=== PATIENT | male | born 1950 | race Caucasian/White ===

== ENCOUNTER 2024-04-25 11:09 | Day surgery (SDC) | payer OTHER, SELFPAY ==
[2024-04-25] VITALS (12 sets, daily range): BP systolic 142–159; BP diastolic 84–98; PULSE 59–70; TEMP 36.2–36.6; O2SAT 93–97; BMI 32.6
--- NOTE | 2024-04-25 11:20 | XR_ITS ---
The [address] [address] Patient Name: RAQUEL RANDOLPH MRN: [id number] date: 1950 Sex: M Assigned Patient Location: [facility] Current Patient Location: Accession/Order Number: [id number] Exam Date: 04/25/2024 11:30 Report Date: 04/27/2024 04:57 At the request of: STARR RUIZ Procedure: XR abdomen 1V EXAMINATION: XR abdomen 1V HISTORY: kidney stones COMPARISON: No relevant comparison available. FINDINGS: KIDNEY/URETER - RIGHT: 6 mm density projecting over inferior pole of right kidney; stone versus bowel content. KIDNEY/URETER - LEFT: No visible renal or ureteral calcifications. PELVIS: No visible ureteral stones. BOWEL: No abnormal dilation or deviation. BONES: No acute abnormality. OTHER: Negative. No abnormal gaseous collections. XR/XR abdomen 1V IMPRESSION: 1. Suspect 6 mm stone within inferior pole of right kidney. Electronically authenticated by: SAWYER CHACKO Date: 04/27/2024 04:57
--- NOTE | 2024-04-25 11:21 | ECG_ITS ---
The [facility] Test Date: 2024-04-25 Pat Name: RAQUEL RANDOLPH Department: Room: - Gender: Male Reference Archivist: : 1950 Requested By: STARR RUIZ Order Number: [id number] Reading MD: BRYANT GRUBER Measurements Intervals Gilman Rate: 68 P: 39 UT: 163 QRS: -2 QRSD: 93 T: 30 QT: 393 QTc: 419 Interpretive Statements SINUS RHYTHM No previous ECG available for comparison Electronically Signed On 04-26-2024 8:54:53 EST by BRYANT GRUBER
[2024-04-25 11:56] LABS: INR 1.03; Prothrombin Time 10.9 sec (9.0-11.6)
[2024-04-25 12:09] LABS: Partial Thromboplastin Time 27.3 sec (22.3-36.2)
[2024-04-25] MEDS: LACTATED RINGER'S SOLUTION 1,000 ML 50 ML IV ×2 (12:30→15:37)
[2024-04-25] MEDS: CEFAZOLIN SODIUM 2 GM/50 ML D5W PREMIX IV (14:45)
--- NOTE | 2024-04-25 16:00 | PM.URSON ---
Urology Surgery Operative Note Operative Note Procedure Date: 04/25/24 Time Out Performed: yes Pre-op Diagnosis: Right UPJ calculus Post-op Diagnosis: same as pre-op Procedures performed: 1. Right ESWL. 2. Cystoscopy. 3. Placement of 6 Upper Sorbian variable length right ureteral stent Anesthesia: General-LMA Primary Surgeon: Montrell Holt Complications: None Estimated blood loss (mL): 5 Findings: Right renal pelvis stone Specimens: None Drains: 6 Upper Sorbian variable length right ureteral stent Indications for Procedures: This gentleman has a 7 mm right UPJ calculus causing pain. He now presents for right ESWL and cystoscopy and right stent placement. He has signed an informed consent for these procedures after risks were explained. Some of these risks include bleeding, perinephric hematoma, infection and anesthesia to name a few. Detailed description of Procedure: The patient was brought to the Operating Room and placed on Siemens electromagnetic lithotripsy treatment table in the supine position. SCDs were placed on their lower extremities and turned on and functioning during the entire case. Timeout was done by all parties in the room. We all agreed upon the patient's identification and the planned procedures for this patient. General Anesthesia was then administered via LMA. Treatment head was then brought to the patient's right side. While using flourscopy the stone was identified. It was found to be in the renal pelvis. It seems to have been ball valving. The stone was lined up into the crosshairs. We then began applying shocks at power level 2.0 and increased to a maximum power level of 3.5. The stone was slow to fragment. Intermittent fluoroscopy showed that it did decrease in size by 50%. After applying 3000 shocks there was still some formed stone visible now in the lower pole of the kidney. The ESWL portion of the procedure was then terminated. He was then repositioned into the modified dorsolithotomy position. All pressure points were satisfactorily padded. Genitalia were sterilely prepped and draped in the usual fashion. I started by passing a 22 Upper Sorbian Olympus cystoscope per urethra and into the bladder. Anterior urethra revealed sequential strictures. I was able to get the scope through them but they were narrowing the lumen by at least 50%. The prostate showed long obstructing lateral lobes with a fairly high median lobe. Panendoscopy in the bladder revealed no evidence of any tumors or stones. There was moderate trabeculation. I then passed a Glidewire through the scope and up the right ureter and into the kidney. A 6 Upper Sorbian variable length ureteral stent was passed over the wire and up into the kidney. The wire was removed and there were good curls in the kidney and in the bladder. The bladder was drained of its contents and the scope was then removed. He was then transferred to a [facility] bed and wheeled to PACU in stable condition. He will be discharged to home later today with a prescription for Power Lakisha 75 mg daily #31 refill and cephalexin 500 mg twice daily for a week.
[2024-04-25] MEDS: SOLIFENACIN SUCCINATE 10 MG TABLET PO (16:11)
[2024-04-25] MEDS: ACETAMINOPHEN 325 MG TABLET 650 MG PO (16:56)
== END 2024-04-25 17:28 | disposition home or self-care (01) ==
PROVIDERS: Visit Provider Urology
PROC: (CPT 50590; principal; 2024-04-25 13:45)
DX: N13.2 Hydronephrosis with renal and ureteral calculous obstruction (principal); N32.89 Other specified disorders of bladder
CPT/HCPCS: 50590; 52332; 36415; 74018; 85610; 85730; 93005; J0690; J2405; J2704; J3010

== ENCOUNTER 2024-05-28 11:01 | Outpatient (OUT) | payer OTHER, SELFPAY | END 2024-05-28 11:02 | disposition home or self-care (01) | LOC: PST 11:01 | PROVIDERS: Visit Provider Urology | DX: N20.0 Calculus of kidney (principal) ==

== ENCOUNTER 2024-05-29 13:15 | Day surgery (SDC) | payer OTHER, SELFPAY ==
--- NOTE | 2024-05-29 13:36 | PC.NURSE ---
(7031) Dr. Holt at bedside and talks with patient about plan of care and patient's expectations of this procedure today. Dr. Holt explains to patient that he doesn't suggest to have this procedure done today but will do it if the patient wants it done. Dr. Holt also talks to patient at length about the unacceptable behavior that this patient displayed towards his office staff. Patient states that he is upset that this wasn't taken care of all at the same time. Dr. Jaffe's states that his office explained things to him numerous times. Patient verbalized that he understands. Girlfriend to bedside. 1410- Patient and patient's girlfriend talk at length about what is the end result and why can't Dr. Holt take a look at his ureters today. Reiterated to patient that a ureteroscopy isn't going to be done today. Patient is requesting to talk to Dr. Holt again. 1425- Dr. Holt back to bedside and talks to patient and patient's family again about the scheduled procedure today. Patient decides that he doesn't want this scheduled procedure done today. Dr Holt reviews all the patient's medications with the patient and patient's girlfriend. Dr. Holt tells patient's when to take the prescribed medications. Patient verbalized a understanding. Dr. Holt to talk to his office to get procedure scheduled. Office to call the patient. Patient verbalized a understanding.
== END 2024-05-29 14:45 | disposition home or self-care (01) ==
PROVIDERS: Visit Provider Urology
DX: N20.0 Calculus of kidney (principal); Z53.8 Procedure and treatment not carried out for other reasons
CPT/HCPCS: 52353

== ENCOUNTER 2024-06-05 08:36 | Day surgery (SDC) | payer OTHER, SELFPAY ==
[2024-06-05] VITALS (10 sets, daily range): BP systolic 143–167; BP diastolic 86–95; PULSE 58–75; TEMP 36.2–36.4; O2SAT 91–96; BMI 33.4
--- NOTE | 2024-06-05 | FL_ITS ---
[address] [address] Patient Name: RAQUEL RANDOLPH MRN: [id number] date: 1950 Sex: M Assigned Patient Location: [facility] Current Patient Location: [facility] Accession/Order Number: [id number] Exam Date: 06/05/2024 11:30 Report Date: 06/11/2024 07:28 At the request of: STARR RUIZ Procedure: FL fluoroscopy <1hr NON-READ EXAM: FL fluoroscopy <1hr NON-READ HISTORY: TECHNIQUE: FINDINGS: Please see Operative Report. Electronically authenticated by: RADIOLOGIST NO Date: 06/11/2024 07:28
--- OUTSIDE RECORDS SUMMARY | 2024-06-05 08:40 | XMS_ITS | CCD ---
Author Organization [facility] Inform ion Partnership [facility] Care Team Providers Care Briquette Maker Name Role Phone Keila Ingram Unavailable Chasidy Matthew Unavailable Wendy Pastor Unavailable Lydia Martines Unavailable Keila Chen Unavailable DO Nita Hernandez Primary Care Provider DO Wendy Khanna Attending Provider DO Nita Hernandez Primary Care Provider DO Wendy Khanna Attending Provider [phone] JEWEL TORRES Primary Care Physician Unavailable Primary Care Provider UnavailNABILA Gillespie Attending Unavailable Montrell HOLT Attending Unavailable Montrell HOLT Attending Unavailable Montrell HOLT Attending Unavailable Richard Ramirez Admitting Unavailable Richard Ramirez Attending Unavailable Wendy Pastor Primary Care Unavailable Jewel Torres Primary Care Unavailable Amandeep Harris Admitting Unavailable Amandeep Harris Attending Unavailable Mac Wolf Admitting Unavailable Mac Wolf Attending Unavailable Jewel Torres Primary Care Unavailable Wendy Pastor Admitting Unavailable Wendy Pastor Attending Unavailable Nita Hernandez Primary Care Unavailable Montrell Holt Admitting Unavailable Montrell Holt Attending Unavailable Jewel Torres Primary Care Unavailable Abdi Lobo Admitting Unavailable Abdi Lobo Attending Unavailable Jewel Torres Primary Care Unavailable Medications Current Medications Medication Drug Class(es) Dates Sig (Normalized) Sig (Original) [id number] 200 actuat albuterol 0.09 mg/actuat metered dose inhaler (2 sources) beta2-Adrenergic Agonist Start: 03-06-2023 take 2 puff(s) by inhalation every four hours as needed Albuterol Sulfate HFA 108 (90 Base) MCG/ACT 2 puffs as needed Inhalation every 4 hrs Feb, Active Start: 03-06-2023 take 2 puff(s) by in halation every four hours as needed Albuterol Sulfate HFA 108 (90 Base) MCG/ACT 2 puffs as needed Inhalation every 4 hrs Feb, Not-Taking/PRN amoxicillin 875 mg / clavulanate 125 mg oral tablet (1 source) Penicillin-class Antibacterial Start: 11-08-2023 take 1 tablet by mouth twice daily Amoxicillin-Pot Clavulanate Active 1 TAB PO Twice daily 09 03November 08, 2023 12:00am azithromycin 250 mg oral tablet (3 sources) Macrolide Antimicrobial Start: 03-06-2023 take 2 tablets by mouth once daily, then take 1 tablet by mouth once daily, then take 2-5 tablets by mouth once daily Zithromax Z-Jose 250 MG 2 tablets on day 1, then 1 tablet on days 2-5 Orally once a day for 5 days Feb, Active Start: 04-02-2022 Azithromycin 2 50 MG 2 tablet on the first day, then 1 tablet daily for 4 days Orally Once a day for 5 day(s) Mar, Not-Taking benzonatate 200 mg oral capsule (2 sources) Non-narcotic Antitussive Start: 11-08-2023 take 200 mg by mouth twice daily Benzonatate Active 200 MG PO Twice daily November 08, 2023 12:00am Start: 03-06-2023 take 1 capsule by mo [facility] every eight hours Benzonatate 200 MG 1 capsule Orally Three times a day for Feb, Active ergocalciferol 1.25 mg oral capsule (1 source) Provitamin D2 Compound Start: 06-12-2023 take 1 capsule by mouth every week Ergocalciferol 08981 UNIT 1 capsule Orally Weekly for 90 days May, Active latanoprost 0.05 mg/ml ophthalmic solution (3 sources) Prostaglandin Analog Start: 04-25-2024 latanoprost Opth 0.005% Heena 1 drop(s), OPTH, Once a day (at bedtime), 2.5 mL, Refill(s) 0 Start Date: 04/25/24 Status: Ordered Start: 11-08-2023 take 1 drop(s) into the eye(s) once daily Latanoprost Active 1 DROPS EYE-BOTH Daily November 08, 2023 12:00am methylPREDNISolone 4 mg oral tablet (1 source) Corticosteroid Start: 03-06-2023 methylPREDNISolone 4 MG as directed Orally Feb, Active oxybutynin chloride 5 mg oral tablet (1 source) Cholinergic Muscarinic Antagonist Start: 05-23-2024 take 1 tablet by mouth twice daily as needed oxybutynin 5 mg Tab 5 mg = 1 tab(s), Oral, BID, PRN for urinary discomfort, # 30 tab(s), Refills(s) 0, Pharmacy: [facility], 178, cm, 04/25/24 9:34:00 EST, Height/Length Dosing, 101.5, kg, 04/25/24 9:34:00 EST, Weight Dosing Start Date: 05/23/24 Status: Ordered Paxlovid 20 x 150 MG & 10 x 100MG (2 sources) Start: 11-24-2021 take 1 dose by mouth twice daily Paxlovid 20 x 150 MG & 10 x 100MG 1 dose Orally twice a day for 5 days Nov, Active tamsulosin hydrochloride 0.4 mg oral capsule (1 source) alpha-Adrenergic Derrick Start: 05-23-2024 take 1 capsule by mouth once daily tamsulosin 0.4 mg Cap 0.4 mg = 1 cap(s), Oral, Daily, # 14 cap(s), Refills(s) 1, Pharmacy: [facility], 178, cm, 04/25/24 9:34:00 EST, Height/Length Dosing, 101.5, kg, 04/25/24 9:34:00 EST, Weight Dosing Start Date: 05/23/24 Status: Ordered vibegron 75 MG Oral Tablet [Gemtesa] (1 source) Start: 05-23-2024 End: 06-20-2024 take 1 tablet by mouth once daily Gemtesa 75 mg oral tablet 75 mg = 1 tab(s), Oral, Daily, X 14 day(s), # 14 tab(s), Refills(s) 1, Pharmacy: [facility], 178, cm, 04/25/24 9:34:00 EST, Height/Length Dosing, 101.5, kg, 04/25/24 9:34:00 EST, Weight Dosing Start Date: 05/23/24 Stop Date: 06/20/24 Status: Ordered Completed/Discontinued Medications Medication Drug Class(es) Dates Sig (Normalized) Sig (Original) doxycycline hyclate 100 mg oral tablet (2 sources) Tetracycline-class Drug Start: 08-20-2023 End: 11-08-2023 take 100 mg by mouth twice daily Doxycycline Hyclate Discontinued 100 MG PO Twice daily 14 August 20, 2023 12:00am November 08, 2023 9:46am hydrOXYzine hydrochloride 25 mg oral tablet (2 sources) Antihistamine Start: 04-02-2022 take 1 tablet by mouth every twenty-four hours hydrOXYzine HCl 25 MG 1 tablet at bedtime as needed Orally Once a day for 7 day(s) Mar, Not-Taking Ketorolac (20 sources) Nonsteroidal Anti-inflammatory Drug, Cyclooxygenase Inhibitor Start: 02-05-2020 Toradol per 15 mg Jan, 60 mg Start: 10-16-2019 Toradol per 15 mg September, 60 mg Start: 01-14-2019 Toradol per 15 mg Dec, 60 mg Start: 09-08-2016 Toradol per 15 mg Aug, 60 mg penicillin v potassium 500 mg oral tablet (2 sources) Start: 03-31-2022 take 1 tablet by mouth every twelve hours Penicillin V Potassium 500 MG 1 tablet Orally Twice a day for 10 day(s) Mar, Not-Taking predniSONE 20 mg oral tablet (2 sources) Start: 08-20-2023 End: 11-08-2023 Prednisone Discontinued 20 MG PO Daily August 20, 2023 12:00am November 08, 2023 9:46am Take 3 pills x3 days, 2 pills x3 days, 1 pill x 3 days Problems Active Problems Problem Classification Problem Date Documented Date Episodic/Chronic Abdominal pain (1 source) Right lower quadrant pain; Translations: [Right lower quadrant pain] Onset: 04-23-2024 Episodic Acute bronchitis (1 source) Acute bronchitis, unspecified Episodic Allergic reactions (1 source) Dermatitis, unspecified; Translations: [Contact dermatitis and other eczema, unspecified cause] 08-20-2023 Episodic Calculus of urinary tract (4 sources) Kidney stone; Translations: [Calculus of kidney] Onset: 04-25-2024 Episodic Disorders of lipid metabolism (11 sources) Hypercholesterolemia; Translations: [Pure hypercholesterolemia, unspecified] Onset: 06-06-2023 Chronic Genitourinary symptoms and ill-defined conditions (1 source) 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; Translations: [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] Onset: 04-27-2024 Chronic Genitourinary symptoms and ill-defined conditions (2 sources) Sensation as if bladder still full; Translations: [Feeling of incomplete bladder emptying] Onset: 04-26-2024 Episodic Nutritional deficiencies (11 sources) Vitamin D deficiency; Translations: [Vitamin D deficiency, unspecified] Onset: 06-06-2023 Chronic Open wounds of extremities (3 sources) Laceration of left thumb; Translations: [Laceration without foreign body of left thumb without damage to nail, initial encounter] 05-02-2023 Episodic Osteoarthritis (10 sources) Degenerative joint disease of shoulder region; Translations: [Primary osteoarthritis, right shoulder] Chronic Other connective tissue disease (10 sources) Full thickness rotator cuff tear; Translations: [Complete rotator cuff tear or rupture of right shoulder, not specified as traumatic] Episodic Other diseases of kidney and ureters (1 source) Urinary tract obstruction; Translations: [Hydronephrosis with renal and ureteral calculous obstruction] Onset: 04-25-2024 Episodic Other inflammatory condition of skin (10 sources) Seborrheic dermatitis; Translations: [Seborrheic dermatitis, unspecified] Episodic Other nutritional; endocrine; and metabolic disorders (10 sources) Body mass index 30+ - obesity; Translations: [Body mass index (BMI) 32.0-32.9, adult] Chronic Other screening for suspected conditions (not mental disorders or infectious disease) (1 source) Encounter for screening for malignant neoplasm of colon Episodic Other upper respiratory disease (1 source) Nasal congestion Episodic Other upper respiratory infections (2 sources) Acute upper respiratory infection, unspecified; Translations: [Acute pharyngitis, unspecified] Onset: 02-15-2021 Resolved: 02-15-2021 Episodic Skin and subcutaneous tissue infections (1 source) Cutaneous abscess, unspecified; Translations: [Cellulitis and abscess of unspecified sites] 08-20-2023 Episodic Unclassified (2 sources) Obstructive hydronephrosis 04-25-2024 Past or Other Problems Problem Classification Problem Date Documented Da te Episodic/Chronic Immunizations and screening for infectious disease (1 source) Contact with and (suspected) exposure to other viral communicable diseases; Translations: [Contact with and (suspected) exposure to other viral communicable diseases Z20.828] Onset: 02-15-2021 Resolved: 02-15-2021 Episodic Unclassified (2 sources) Cough R05.9 Onset: 11-24-2021 Resolved: 11-24-2021 Viral infection (1 source) COVID-19 Onset: 11-24-2021 Resolved: 11-24-2021 Results Test Name Value Interpretation Reference Range Facility XR KUBon 05-20-2024 XR KUB [facility] [place] [address] XRay Report Signed Patient: Raquel Randolph MR#: [id number] 08 : 1950 Acct:[id number] Age/Sex: 74 / M ADM Date: 05/19/24 Loc: XD Room: Type: [facility] Attending Dr: Montrell Holt MD Copies to: Montrell Holt MD Ordering Provider: Montrell Holt MD Date of Service: 05/19/24 XR/XR KUB: N20.0 XR KUB 05/19/2024 3:28 PM SIGNS AND SYMPTOMS: Right lower quadrant pain anteriorly PROTOCOL: Frontal radiograph of the abdomen and pelvis COMPARISON: 04/23/2024 05/19/2024 FINDINGS: Radiodense stones seen on the previous CT are not as well visualized radiographically. A right- sided ureteral stent is in satisfactory position. There is a nonobstructive bowel gas pattern. No radiographic evidence of free air. Degenerative changes are noted in the lumbar spine and hips. XR/XR KUB IMPRESSION: Radiodense stones seen on the previous CT are not as well visualized radiographically. A right-sided ureteral stent is in satisfactory position. Impression dictated by: Eliseo Flores M.D.05/20/2024 12:55 AM Dictation Location: [place] [address] Transcribed By: [facility] 05/20/2454 Dictated By: Eliseo Flores II, MD 05/20/2450 Signed By: 05/20/2454 Normal [facility] Basic Metabolic Panelon 04-22 Anion gap [Moles/Vol] 14.0 mmol/L Normal 6.0-15.0 [facility] Comment on above: Performed By: #### L IPASE, BMP, CBC, HEPATIC #### [facility] [address] Calcium [Mass/Vol] 9.2 mg/dL Normal 8.6-10.3 [facility] Comment on above: Performed By: #### L IPASE, BMP, CBC, HEPATIC #### [facility] [address] [place] [address] [place] Chloride [Moles/Vol] 104 mmol/L Normal 98-107 [facility] Comment on above: Performed By: #### L IPASE, BMP, CBC, HEPATIC #### [facility] [address] [place] [address] [place] CO2 [Moles/Vol] 24.1 mmol/L Normal 21.0-31.0 [facility] Comment on above: Performed By: #### L IPASE, BMP, CBC, HEPATIC #### [facility] [address] [place] [address] [place] Creatinine [Mass/Vol] 0.90 mg/dL Normal 0.70-1.30 [facility] Comment on above: Performed By: #### L IPASE, BMP, CBC, HEPATIC #### [facility] [address] [place] [address] [place] Creatinine Clr Calc Pharmacy 87.06 Normal [facility] Comment on above: Performed By: #### L IPASE, BMP, CBC, HEPATIC #### [facility] [address] [place] [id number] [place] GFR/1.73 sq M.predicted MDRD (S/P/Bld) [Vol rate/Area] mL/min/{1.73_m2} Normal [facility] Comment on above: Performed By: #### L IPASE, BMP, CBC, HEPATIC #### [facility] [address] [place] [address] [place] Glucose [Mass/Vol] 108 mg/dL High 70-100 [facility] Comment on above: Result Comment: [place] Glucose Reference Range is dependent on time and content of last meal. Glucose of more than 200 mg/dL in a nonstressed, ambulatory subject supports the diagnosis of Diabetes Mellitus. ADA recommended reference range Performed By: #### L IPASE, BMP, CBC, HEPATIC #### [facility] [address] Potassium [Moles/Vol] 4.1 mmol/L Normal 3.5-5.1 [facility] Comment on above: Performed By: #### L IPASE, BMP, CBC, HEPATIC #### [address] Sodium [Moles/Vol] 138 mmol/L Normal 136-145 [facility] Comment on above: Performed By: #### L IPASE, BMP, CBC, HEPATIC #### [facility] [address] Urea nitrogen [Mass/Vol] 18 mg/dL Normal 7-25 [facility] Comment on above: Performed By: #### L IPASE, BMP, CBC, HEPATIC #### [address] abdomen pelvis wo conon 1 CT abdomen pelvis wo con [facility] [place] [address] CT Scan Report Signed Patient: Raquel Randolph MR#: [id number] [birth year] : 1950 Acct:[id number] Age/Sex: 74 / M ADM Date: 05/19/24 Loc: ER Room: Type: [facility] ER Attending Dr: Copies to: Rcihard Ramirez DO Ordering Provider: Richard Ramirez DO Date of Service: 05/19/24 CT/CT abdomen pelvis wo con: right side abd pain CT abdomen pelvis wo con 05/19/2024 5:44 PM SIGNS AND SYMPTOMS: Right-sided abdominal pain, history of renal stones TECHNIQUE: Multidetector ct axial images of the abdomen and pelvis were obtained without IV contrast. Multiplanar reformats were performed and reviewed to further define anatomy and possible pathology. CT was performed with one or more of the following dose reduction techniques: Automated exposure control, adjustment of the mA and/or kV according to patient size, or use of iterative reconstruction technique. COMPARISON: 04/23/2024 FINDINGS: Lower Chest: Atherosclerotic changes are noted in the coronary arteries. ABDOMEN: Liver: Within normal limits. Bile Ducts: Normal caliber. Gallbladder: No calcified gallstones. Normal caliber wall. Pancreas: Within normal limits. Spleen: Within normal limits. Adrenals: Within normal limits. Kidneys: There is right-sided hydronephrosis. Multiple right-sided renal stones are noted measuring up to 7 mm in greatest dimension. There are tiny 1 to 2 mm left-sided renal stones with parapelvic cysts. A right ureteral stent is new when compared to the prior exam. Pelvis: Reproductive Organs: No pelvic masses. Ureters: A right-sided ureteral stent is present with periureteral fat stranding which is worse when compared to the prior exam. Bladder: The distal end of the right ureteral stent is noted within the bladder. Bowel: There is a normal appendix in the right lower quadrant. There is no evidence of bowel obstruction. Mesenteric Lymph Nodes: No enlarged mesenteric lymph nodes. Peritoneum: No ascites or free air, no fluid collection. Vessels: Atherosclerotic changes are noted in the abdominal aorta and its branches. Retroperitoneum: Within normal limits. Abdominal Wall: Within normal limits. Bones: Degenerative changes are noted in the thoracolumbar spine and hips. CT/CT abdomen pelvis wo con IMPRESSION: Right-sided renal stones are redemonstrated measuring up to 7 mm in greatest dimension. There has been interval placement of a right-sided ureteral stent with right-sided hydronephrosis along with perinephric and periureteral fat stranding. No ureteral or bladder stone. Tiny nonobstructing left renal stones are redemonstrated. No bowel obstruction. Impression dictated by: Eliseo Flores M.D.05/19/2024 6:16 PM Dictation Location: [place] [address] Transcribed By: [facility] 05/19/24 8255 Dictated By: Eliseo Flores II, MD 05/19/241806 Signed By: 05/19/241815 Normal [facility] Complete Blood Count Auto Di ffon 05-19-2024 Basophils (Bld) [#/Vol] 0.0 10*3/uL Normal 0.0-0.2 [facility] Comment on above: Result Comment: PERF ORMED BY: [place] [address] PATHOLOGIST SALESPERSON YARD [employer] FELIZ FAY M.D. Performed By: #### L IPASE, BMP, CBC, HEPATIC #### [address] Basophils/100 WBC (Bld) 0.6 % Normal . T ricky [facility] Comment on above: Performed By: #### L IPASE, BMP, CBC, HEPATIC #### [address] Eosinophils (Bld) [#/Vol] 0.1 10*3/uL Normal 0.0-0.45 [facility] Comment on above: Performed By: #### L IPASE, BMP, CBC, HEPATIC #### [address] Eosinophils/100 WBC (Bld) 1.2 % Normal . [facility] Comment on above: Performed By: #### L IPASE, BMP, CBC, HEPATIC #### [address] Erythrocyte distribution width (RBC) [Ratio] 13.7 % Normal 12.0-14.8 [facility] Comment on above: Performed By: #### L IPASE, BMP, CBC, HEPATIC #### [address] Hematocrit (Bld) [Volume fraction] 41.5 % Normal 38.8-50.0 [facility] Comment on above: Performed By: #### L IPASE, BMP, CBC, HEPATIC #### [place] [address] [place] Hemoglobin (Bld) [Mass/Vol] 14.3 g/dL Normal 13.0-17.0 [facility] Comment on above: Performed By: #### L IPASE, BMP, CBC, HEPATIC #### [address] Lymphocytes (Bld) [#/Vol] 1.9 10*3/uL Normal 1.00-4.8 [facility] Comment on above: Performed By: #### L IPASE, BMP, CBC, HEPATIC #### [address] Lymphocytes/100 WBC (Bld) 23.1 % Normal . [facility] Comment on above: Performed By: #### L IPASE, BMP, CBC, HEPATIC #### [address] MCH (RBC) [Entitic mass] 31.6 pg Normal 27.5-35.2 [facility] Comment on above: Performed By: #### L IPASE, BMP, CBC, HEPATIC #### [address] MCV (RBC) [Entitic vol] 91.7 fL Normal 83.5-101 T [facility] Comment on above: Performed By: #### L IPASE, BMP, CBC, HEPATIC #### [address] Mean Corpuscular HGB Conc 34.4 g/dL Normal 32.5-35.6 [facility] Comment on above: Performed By: #### L IPASE, BMP, CBC, HEPATIC #### [address] Monocytes (Bld) [#/Vol] 0.7 10*3/uL Normal 0.0-0.8 [facility] Comment on above: Performed By: #### L IPASE, BMP, CBC, HEPATIC #### [address] Monocytes/100 WBC (Bld) 17.49 % Normal 0.00-20.00 T [facility] Comment on above: Performed By: #### L IPASE, BMP, CBC, HEPATIC #### [facility] [address] [place] [address] [place] Monocytes/100 WBC (Bld) 8.8 % Normal . T he [facility] Comment on above: Performed By: #### L IPASE, BMP, CBC, HEPATIC #### [address] Neutrophils (Bld) [#/Vol] 5.4 10*3/uL Normal 1.8-7.7 [facility] Comment on above: Performed By: #### L IPASE, BMP, CBC, HEPATIC #### [place] [address] [place] Neutrophils/100 WBC (Bld) 66.3 % Normal . [facility] Comment on above: Performed By: #### L IPASE, BMP, CBC, HEPATIC #### [address] NRBC% 0.1 /100{WBC} Normal 0-0.5 [facility] Comment on above: Performed By: #### L IPASE, BMP, CBC, HEPATIC #### [place] [address] [place] Platelet mean volume (Bld) [Entitic vol] 8.2 fL Normal 6.6-10.1 [facility] Comment on above: Performed By: #### L IPASE, BMP, CBC, HEPATIC #### [facility] [address] [place] [address] [place] Platelets (Bld) [#/Vol] 248 10*3/uL Normal 150-450 [facility] Comment on above: Performed By: #### L IPASE, BMP, CBC, HEPATIC #### [place] [address] [place] RBC (Bld) [#/Vol] 4.52 10*6/uL Normal 3.90-5.60 [facility] Comment on above: Performed By: #### L IPASE, BMP, CBC, HEPATIC #### [place] [address] [place] WBC (Bld) [#/Vol] 8.2 10*3/uL Normal 4.1-10.5 [facility] Comment on above: Performed By: #### L IPASE, BMP, CBC, HEPATIC #### [facility] [address] [place] [address] [place] Dipstick and Microscopicon 1 Appearance (U) Turbid Critically abnormal Clear [facility] Comment on above: Order Comment: Name Collection Type:: Clean-Voided Midstream Performed By: #### A DDONUAPLUS, CUU ####[place] [address] [address] Bacteria,Urine None Seen Normal None Seen [facility] Comment on above: Order Comment: Name Collection Type:: Clean-Voided Midstream Performed By: #### A DDONUAPLUS, CUU ####[address] Bilirubin,Urine Negative Normal Negative [facility] Comment on above: Order Comment: Name Collection Type:: Clean-Voided Midstream Performed By: #### A DDONUAPLUS, CUU ####[address] [place] Yeast,Urine 4+ High None Seen [facility] Comment on above: Order Comment: Name Collection Type:: Clean-Voided Midstream Result Comment: PERF ORMED BY: [facility] [address] [place] [address] PATHOLOGIST SALESPERSON YARD [employer] FELIZ FAY M.D. Performed By: #### A DDONUAPLUS, CUU ####[place] [address] [place] [id number] [facility] Calcium Oxalate Crystals,Urine 4+ Normal [facility] Comment on above: Order Comment: Name Collection Type:: Clean-Voided Midstream Performed By: #### A DDONUAPLUS, CUU ####[place] [address] [place] [id number] [facility] Color (U) Dark-Brown Critically abnormal Yellow [facility] Comment on above: Order Comment: Name Collection Type:: Clean-Voided Midstream Performed By: #### A DDONUAPLUS, CUU ####[place] [address] [place] [address] [facility] Glucose Ql (U) Normal Normal Normal [facility] Comment on above: Order Comment: Name Collection Type:: Clean-Voided Midstream Performed By: #### A DDONUAPLUS, CUU ####[address] [address] [place] Hyaline Casts,Urine None Normal 0-8 [facility] Comment on above: Order Comment: Name Collection Type:: Clean-Voided Midstream Performed By: #### A DDONUAPLUS, CUU ####[address] [address] [facility] Ketones Ql (U) Negative Normal Negative [facility] Comment on above: Order Comment: Name Collection Type:: Clean-Voided Midstream Performed By: #### A DDONUAPLUS, CUU ####[address] [address] [facility] Leukocyte esterase Test strip Ql (U) 2+ High Negative [facility] Comment on above: Order Comment: Name Collection Type:: Clean-Voided Midstream Performed By: #### A DDONUAPLUS, CUU ####[address] [address] [facility] Mucus,Urine Rare Normal [facility] Comment on above: Order Comment: Name Collection Type:: Clean-Voided Midstream Performed By: #### A DDONUAPLUS, CUU ####[address] [address] [place] Nitrite,Urine Negative Normal Negative [facility] Comment on above: Order Comment: Name Collection Type:: Clean-Voided Midstream Performed By: #### A DDONUAPLUS, CUU ####[address] [address] [facility] Occult Blood,Urine 3+ High Negative [facility] Comment on above: Order Comment: Name Collection Type:: Clean-Voided Midstream Result Comment: PERF ORMED BY: [facility] [address] [place] [address] PATHOLOGIST SALESPERSON YARD [employer] FELIZ FAY M.D. Performed By: #### A DDONUAPLUS, CUU ####[address] [address] [facility] pH (U) 6.0 [pH] Normal 5.0-9.0 [facility] Comment on above: Order Comment: Name Collection Type:: Clean-Voided Midstream Performed By: #### A DDONUAPLUS, CUU ####[place] [id number] [facility] Protein (U) [Mass/Vol] 100 mg/dL High Negative Th e [facility] Comment on above: Order Comment: Name Collection Type:: Clean-Voided Midstream Performed By: #### A DDONUAPLUS, CUU ####[place] [id number] [facility] RBC,Urine Innumerable High 0-4 [facility] Comment on above: Order Comment: Name Collection Type:: Clean-Voided Midstream Performed By: #### A DDONUAPLUS, CUU ####[address] Specificy [place],Urine 1.020 Normal 1.001-1.030 [facility] Comment on above: Order Comment: Name Collection Type:: Clean-Voided Midstream Performed By: #### A DDONUAPLUS, CUU ####[place] [id number] [facility] Urobilinogen,Urine Normal Normal Normal [facility] Comment on above: Order Comment: Name Collection Type:: Clean-Voided Midstream Performed By: #### A DDONUAPLUS, CUU ####[place] [id number] [facility] WBC,Urine Innumerable High 0-4 [facility] Comment on above: Order Comment: Name Collection Type:: Clean-Voided Midstream Performed By: #### A DDONUAPLUS, CUU ####[facility] [id number] [place] [id number] [facility] Hepatic Panelon 05-19-2024 Albumin [Mass/Vol] 4.3 g/dL Normal 3.5-5.7 [facility] Comment on above: Performed By: #### L IPASE, BMP, CBC, HEPATIC #### [facility] [address] Albumin/Globulin [Mass ratio] 1.7 {ratio} Normal [facility] Comment on above: Performed By: #### L IPASE, BMP, CBC, HEPATIC #### [facility] [address] ALP [Catalytic activity/Vol] 76 U/L Normal 34-104 [facility] Comment on above: Performed By: #### L IPASE, BMP, CBC, HEPATIC #### [facility] [address] ALT [Catalytic activity/Vol] 36 U/L Normal 7-52 [facility] Comment on above: Performed By: #### L IPASE, BMP, CBC, HEPATIC #### [facility] [address] AST [Catalytic activity/Vol] 23 U/L Normal 13-39 [facility] Comment on above: Performed By: #### L IPASE, BMP, CBC, HEPATIC #### [facility] [address] Bilirubin [Mass/Vol] 1.1 mg/dL High 0.3-1.0 [facility] Comment on above: Performed By: #### L IPASE, BMP, CBC, HEPATIC #### [facility] [address] [place] [id number] [place] Bilirubin,Indirect 1.0 mg/dL Normal [facility] Comment on above: Performed By: #### L IPASE, BMP, CBC, HEPATIC #### [facility] [address] [place] [address] Bilirubin.indirect [Mass/Vol] 0.10 mg/dL Normal 0.03-0.18 [facility] Comment on above: Performed By: #### L IPASE, BMP, CBC, HEPATIC #### [facility] [address] Globulin (S) [Mass/Vol] 2.6 g/dL Normal T he [facility] Comment on above: Performed By: #### L IPASE, BMP, CBC, HEPATIC #### [facility] [address] Protein [Mass/Vol] 6.9 g/dL Normal 6.4-8.9 [facility] Comment on above: Performed By: #### L IPASE, BMP, CBC, HEPATIC #### [facility] [address] Lipaseon 05-19-2024 Lipase [Catalytic activity/Vol] 13.0 U/L Normal 11.0-82.0 [facility] Comment on above: Result Comment: PERF ORMED BY: [place] [address] PATHOLOGIST SALESPERSON [employer] FELIZ FAY M.D. Performed By: #### L IPASE, BMP, CBC, HEPATIC #### [address] Urine Cultureon 05-19-2024 Bacteria identified Cx Nom (U) <9,000 colonies/ml mixed bacterial skin contaminants 2 Days PERFORMED BY: [place] [address] PATHOLOGIST SALESPERSON [employer] FELIZ FAY M.D. Normal [facility] Comment on above: Performed By: #### A DDONUAPLUS, CUU ####[facility] [id number] Dipstick and Microscopicon 1 06-27-2023 Appearance (U) Turbid Critically abnormal Clear [facility] Comment on above: Order Comment: Name Collection Type:: Rodriguez Catheter Performed By: #### C UU, ADDONUAPLUS #### [address] Bacteria,Urine None Seen Normal None Seen [facility] Comment on above: Order Comment: Name Collection Type:: Rodriguez Catheter Performed By: #### C UU, ADDONUAPLUS #### [place] [address] [place] Bilirubin,Urine Negative Normal Negative [facility] Comment on above: Order Comment: Name Collection Type:: Rodriguez Catheter Performed By: #### C UU, ADDONUAPLUS #### [address] Color (U) Brown Critically abnormal Yellow [facility] Comment on above: Order Comment: Name Collection Type:: Rodriguez Catheter Performed By: #### C UU, ADDONUAPLUS #### [address] Glucose Ql (U) Normal Normal Normal [facility] Comment on above: Order Comment: Name Collection Type:: Rodriguez Catheter Performed By: #### C UU, ADDONUAPLUS #### [place] [address] [place] Hyaline Casts,Urine None Normal 0-8 [facility] Comment on above: Order Comment: Name Collection Type:: Rodriguez Catheter Performed By: #### C UU, ADDONUAPLUS #### [address] Ketones Ql (U) Negative Normal Negative [facility] Comment on above: Order Comment: Name Collection Type:: Rodriguez Catheter Performed By: #### C UU, ADDONUAPLUS #### [address] Leukocyte esterase Test strip Ql (U) 1+ High Negative [facility] Comment on above: Order Comment: Name Collection Type:: Rodriguez Catheter Performed By: #### C UU, ADDONUAPLUS #### [place] [address] [place] Mucus,Urine Rare Normal [facility] Comment on above: Order Comment: Name Collection Type:: Rodriguez Catheter Result Comment: PERF ORMED BY: [place] [phone] PATHOLOGIST SALESPERSON [employer] FELIZ FAY M.D. Performed By: #### C UU, ADDONUAPLUS #### [place] [address] [place] Nitrite,Urine Negative Normal Negative [facility] Comment on above: Order Comment: Name Collection Type:: Rodriguez Catheter Performed By: #### C UU, ADDONUAPLUS #### [address] Occult Blood,Urine 3+ High Negative [facility] Comment on above: Order Comment: Name Collection Type:: Rodriguez Catheter Result Comment: PERF ORMED BY: [place] [address] PATHOLOGIST SALESPERSON [employer] FELIZ FAY M.D. Performed By: #### C UU, ADDONUAPLUS #### [address] pH (U) 6.0 [pH] Normal 5.0-9.0 [facility] Comment on above: Order Comment: Name Collection Type:: Rodriguez Catheter Performed By: #### C UU, ADDONUAPLUS #### [address] Protein (U) [Mass/Vol] 100 mg/dL High Negative Th [facility] Comment on above: Order Comment: Name Collection Type:: Rodriguez Catheter Performed By: #### C UU, ADDONUAPLUS #### [place] [address] [place] RBC,Urine Innumerable High 0-4 [facility] Comment on above: Order Comment: Name Collection Type:: Rodriguez Catheter Performed By: #### C UU, ADDONUAPLUS #### [address] Specificy [place],Urine 1.016 Normal 1.001-1.030 [facility] Comment on above: Order Comment: Name Collection Type:: Rodriguez Catheter Result Comment: Rech ecked by refractometer Performed By: #### C UU, ADDONUAPLUS #### [facility] [address] Squamous Epithelial Cell,Urine 1 [HPF] Normal 0-2 [facility] Comment on above: Order Comment: Name Collection Type:: Rodriguez Catheter Performed By: #### C UU, ADDONUAPLUS #### [address] Urobilinogen,Urine Normal Normal Normal [facility] Comment on above: Order Comment: Name Collection Type:: Rodriguez Catheter Performed By: #### C UU, ADDONUAPLUS #### [address] WBC,Urine Innumerable High 0-4 [facility] Comment on above: Order Comment: Name Collection Type:: Rodriguez Catheter Performed By: #### C UU, ADDONUAPLUS #### [address] Urine Cultureon 04-26-2024 Bacteria identified Cx Nom (U) No Growth 2 Days PERFORMED BY: [place] [address] PATHOLOGIST SALESPERSON [employer] FELIZ FAY M.D. Normal [facility] Comment on above: Performed By: #### C UU, ADDONUAPLUS #### [address] Ambulatory Visit Summaryon 1 06-26-2023 Ambulatory Visit Summary Ambulatory Visit Summary RAQUEL RANDOLPH :1950 Visit Date:04/25/2024 Ambulatory Visit Instructions Your Diagnosis Ureteral stone with hydronephrosis Kidney stone Your Care Team Attending Physician - SARA MUNSON, Montrell Awad Primary Care Physician - JEWEL TORRES MD This Is Your Medications List Contact prescribing physician if questions or concerns latanoprost ophthalmic (latanoprost Opth 0.005% Heena) Procedures Performed Arthritis. Discharge Vitals Temperature (Oral) 37 ???C Heart Rate (Peripheral) 63 Respiratory Rate 18 Blood Pressure 136/88 Height 178 cm Height 70 in Weight 101.5 kg Weight 223.769 lb BMI 32.04 What to do next You Need to Schedule the Following Appointments Follow Up with SARA MUNSON, ELENA Crocker When: Where: [address] [place] [address]- Medications What How Much When Instructions Unchanged latanoprost ophthalmic (latanoprost Opth 0.005% Heena) 1 Drops Ophthalmic Once a day (at bedtime) Contact prescribing physician if questions or concerns Allergies No Known Allergies Problems Ongoing - Any problem that you are currently receiving treatment for. Kidney stone Ureteral stone with hydronephrosis Patient Survey You may receive a survey via text or e-mail asking about your office visit. Please share your experience with us by completing your survey. We appreciate your feedback and thank you for choosing us for your care. Education Materials ESWL for Kidney Stones Extracorporeal shock wave lithotripsy (ESWL) is a treatment that can help break up kidney stones that are too large to pass on their own. This is a nonsurgical procedure that breaks up a kidney stone with shock waves. These shock waves pass through your body and focus on the kidney stone. They cause the kidney stone to break into smaller pieces (fragments) while it is still in the urinary tract. The fragments of stone can pass more easily out of your body in the urine. Tell a health care provider about: ??? Any allergies you have. ??? All medicines you are taking, including vitamins, herbs, eye drops, creams, and latn-jbi-miveeml medicines. ??? Any problems you or family members have had with anesthetic medicines. ??? Any bleeding problems you have. ??? Any surgeries you have had. ??? Any medical conditions you have. ??? Whether you are or may be . What are the risks? Your health care provider will talk with you about risks. These may include: ??? Infection. ??? Bleeding from the kidney. ??? Bruising of the kidney or skin. ??? Scarring of the kidney. This can lead to: ? Increased blood pressure. ? Poor kidney function. ? Return (recurrence) of kidney stones. ??? Damage to other structures or organs. This may include the liver, colon, spleen, or pancreas. ??? Blockage (obstruction) of the tube that carries urine from the kidney to the bladder (ureter). ??? Failure of the kidney stone to break into fragments. What happens before the procedure? When to stop eating and drinking Follow instructions from your health care provider about what you may eat and drink. These may include: ??? 8 hours before your procedure ? Stop eating most foods. Do not eat meat, fried foods, or fatty foods. ? Eat only light foods, such as toast or crackers. ? All liquids are okay except energy drinks and alcohol. ??? 6 hours before your procedure ? Stop eating. ? Drink only clear liquids, such as water, clear fruit juice, black coffee, plain tea, and sports drinks. ? Do not drink energy drinks or alcohol. ??? 2 hours before your procedure ? Stop drinking all liquids. ? You may be allowed to take medicines with small sips of water. If you do not follow your health care provider's instructions, your procedure may be delayed or canceled. Medicines Ask your health care provider about: ??? Changing or stopping your regular medicines. These include any diabetes medicines or blood thinners you take. ??? Taking medicines such as aspirin and ibuprofen. These medicines can thin your blood. Do not take them unless your health care provider tells you to. ??? Taking itmt-nuy-voyyhmm medicines, vitamins, herbs, and supplements. Tests You may have tests, such as: ??? Blood tests. ??? Urine tests. ??? Imaging tests. This may include a CT scan. Surgery safety Ask your health care provider: ??? How your surgery site will be marked. ??? What steps will be taken to help prevent infection. These steps may include: ? Washing skin with a soap that kills germs. ? Receiving antibiotics. General instructions ??? If you will be going home right after the procedure, plan to have a responsible adult: ? Take you home from the hospital or clinic. You will not be allowed to drive. ? Care for you fo (more content not included)... Normal [facility] Ambulatory Visit Summary Ambulatory Visit Summary RAQUEL RANDOLPH :1950 Visit Date:04/25/2024 Ambulatory Visit Instructions Your Diagnosis Ureteral stone with hydronephrosis Kidney stone Your Care Team Attending Physician - SARA MUNSON, Montrell Awad Primary Care Physician - JEWEL TORRES MD This Is Your Medications List Contact prescribing physician if questions or concerns latanoprost ophthalmic (latanoprost Opth 0.005% Heena) Procedures Performed Arthritis. Discharge Vitals Temperature (Oral) 37 ???C Heart Rate (Peripheral) 63 Respiratory Rate 18 Blood Pressure 136/88 Height 178 cm Height 70 in Weight 101.5 kg Weight 223.769 lb BMI 32.04 What to do next You Need to Schedule the Following Appointments Follow Up with SARA MUNSON, ELENA Crocker When: Where: [address] [place] [address]- Medications What How Much When Instructions Unchanged latanoprost ophthalmic (latanoprost Opth 0.005% Heena) 1 Drops Ophthalmic Once a day (at bedtime) Contact prescribing physician if questions or concerns Allergies No Known Allergies Problems Ongoing - Any problem that you are currently receiving treatment for. Kidney stone Ureteral stone with hydronephrosis Patient Survey You may receive a survey via text or e-mail asking about your office visit. Please share your experience with us by completing your survey. We appreciate your feedback and thank you for choosing us for your care. Education Materials ESWL for Kidney Stones Extracorporeal shock wave lithotripsy (ESWL) is a treatment that can help break up kidney stones that are too large to pass on their own. This is a nonsurgical procedure that breaks up a kidney stone with shock waves. These shock waves pass through your body and focus on the kidney stone. They cause the kidney stone to break into smaller pieces (fragments) while it is still in the urinary tract. The fragments of stone can pass more easily out of your body in the urine. Tell a health care provider about: ??? Any allergies you have. ??? All medicines you are taking, including vitamins, herbs, eye drops, creams, and lamz-bgd-euoyhmq medicines. ??? Any problems you or family members have had with anesthetic medicines. ??? Any bleeding problems you have. ??? Any surgeries you have had. ??? Any medical conditions you have. ??? Whether you are or may be . What are the risks? Your health care provider will talk with you about risks. These may include: ??? Infection. ??? Bleeding from the kidney. ??? Bruising of the kidney or skin. ??? Scarring of the kidney. This can lead to: ? Increased blood pressure. ? Poor kidney function. ? Return (recurrence) of kidney stones. ??? Damage to other structures or organs. This may include the liver, colon, spleen, or pancreas. ??? Blockage (obstruction) of the tube that carries urine from the kidney to the bladder (ureter). ??? Failure of the kidney stone to break into fragments. What happens before the procedure? When to stop eating and drinking Follow instructions from your health care provider about what you may eat and drink. These may include: ??? 8 hours before your procedure ? Stop eating most foods. Do not eat meat, fried foods, or fatty foods. ? Eat only light foods, such as toast or crackers. ? All liquids are okay except energy drinks and alcohol. ??? 6 hours before your procedure ? Stop eating. ? Drink only clear liquids, such as water, clear fruit juice, black coffee, plain tea, and sports drinks. ? Do not drink energy drinks or alcohol. ??? 2 hours before your procedure ? Stop drinking all liquids. ? You may be allowed to take medicines with small sips of water. If you do not follow your health care provider's instructions, your procedure may be delayed or canceled. Medicines Ask your health care provider about: ??? Changing or stopping your regular medicines. These include any diabetes medicines or blood thinners you take. ??? Taking medicines such as aspirin and ibuprofen. These medicines can thin your blood. Do not take them unless your health care provider tells you to. ??? Taking cnfo-thc-xalnudy medicines, vitamins, herbs, and supplements. Tests You may have tests, such as: ??? Blood tests. ??? Urine tests. ??? Imaging tests. This may include a CT scan. Surgery safety Ask your health care provider: ??? How your surgery site will be marked. ??? What steps will be taken to help prevent infection. These steps may include: ? Washing skin with a soap that kills germs. ? Receiving antibiotics. General instructions ??? If you will be going home right after the procedure, plan to have a responsible adult: ? Take you home from the hospital or clinic. You will not be allowed to drive. ? Care for you fo (more content not included)... Normal [facility] Urology Office/Clinic Noteon 12-06-2024 Urology Office/Clinic Note Urology Office/Clinic Note Chief Complaint ER f/u HPI Staff 73yr old new pt here for f/u to ER with KUB. Presented to ER for right lower abdominal pain. Xray & CT showed right ureteropelvic junction stone with moderate hydronephrosis. Was given ATB and Motrin. Pt denies pain at this time. Thinks stone may have moved Dysuria: denies Incomplete bladder emptying: denies Hematuria: denies Frequency: about every couple hours Urgency: rarely, mostly no Nocturia: not usually Stream: good stream Leaking: denies Post void dripping: denies Wearing pads/ Depends: denies Urge incontinence: denies Stress incontinence: denies Incontinence without Sensory Awareness: denies Abdominal pain: not today, but had abdominal pain 04/23/24. Also states last night he had episodes of nausea with left side abdominal pain Flank pain: denies Sexual complaints: _ History of Present Illness Tests reviewed: reviewed UA, labs, KUB, CT, ER records, new patient paperwork. I have reviewed the previous health record information and history for this patient from external provider I have reviewed and verified the staff HPI to be accurate for this encounter. There have been no associated fever, chills, flank pain, or blood in the urine. Denies any urinary infections since last encounter. Review of Systems PHQ Score Initial Depression Screen Score: 0 SCORE ROS - Provider Constitutional: denies weight loss, denies hot flashes. Eyes: denies eye problems. Gastrointestinal: denies nausea, denies vomiting. Cardiovascular: denies chest pain or angina. Integumentary: no dryness Musculoskeletal: denies musculoskeletal symptoms. ENMT: denies otolaryngeal symptoms. Respiratory: no shortness of breath. Heme/Lymph: denies easy bleeding tendency, denies easy bruising tendency. Psychiatric: no confusion, no anxiety. Genitourinary: See HPI. Physical Exam Vitals & Measurements T: 37 ???C(Oral) HR: 63(Peripheral) RR: 18 BP: 136/88 HT: 70 in HT: 178 cm WT: 101.5 kg WT: 223.769 lb BMI: 32.04 General Appearance: alert, no distress, well nourished, well developed male. Head: normocephalic . Eyes: normal orbit and globe. ENMT: normal examination of external ears. Psychiatric: cooperative, affect appropriate for age, normal judgement, euthymic mood. Assessment/Plan 73 yo male following up to recent [facility] visit for ureteral stone. Pt accompanied by today. Unable to find PSA. IPPS 3. 1. Ureteral stone with hydronephrosis (N13.2: Hydronephrosis with renal and ureteral calculous obstruction) Pt presented to [facility] 04/23/24 RLQ pain and N/V. He has been having intermittent pain/nausea for several weeks or months...he is unsure. CT AP w con 04/23/24 - 7 mm right UPJ stone with moderate hydronephrosis. KUB 04/23/24 [facility] - R UPJ stone seen on CT is visualized. Measures 5 mm. Mild fullness is present on the right. Labs - WBC wnl. Cr 0.90, eGFR >60 UA trace protein, 3+ blood, innumerable RBCs, 1-2 WBC, 1+ mucus. UA today shows trace-intact blood. Pt reports he worked yesterday and had mild pain. Pt states he did not have much of an appetite last night. Has not experienced pain today. Of note, pt states he has been experiencing pain intermittently over the past year which could suggest an impacted stone. Discussed proceeding with ESWL since stone is visible on XR. Not on anticoagulation. Pt has been NPO since midnight. Reports he is flying to [place] on Saturday 04/28. Due to upcoming trip, strongly advised stent placement to avoid complications while pt is overseas. -Will schedule R ESWL with stent placement. The procedure risks, benefits, details and treatment alternatives have been discussed with the patient. These include blood in the urine, infection, bleeding around the kidney, kidney bruising, inability to break up the stone, need for blood transfusion, blockage from stone fragments, and need for additional procedures, among others. Full informed consent has been obtained. Will order General anesthesia. -KUB [place] 2. Kidney stone (N20.0: Calculus of kidney) CT AP w con 04/23/24 [facility] - Punctate right calyceal stone. KUB 04/23/24 [facility] - no stones. Hx of stones. One episode which was >[address] Puentes performed ESWL and had stent placed. See #1. Follow-up With When Contact Information Montrell HOLT MD, URL [address] [place] [address]- Additional Instructions: R ESWL with stent (later this afternoon) Patient Education ESWL for Kidney Stones I, Shantell Dotson, personally scribed for Dr. Holt on 04/25/2024 10:12:13. . Documentation recorded by the scribShantell escobar, accurately reflects the services(s) I performed and decisions made by me. Authenticated by Dr. Holt on 04/25/2024 10:15:21. Problem List/Past Medical History Ongoing Kidney stone Ureteral stone with hydronephrosis (more content not included)... Normal [facility] Comment on above: Result Comment: Elec tronically Signed By: Montrell HOLT MD\.br\Date and Time Signed: 04/25/24 10:15 EST\.br\Electronically Co-Signed By: Shantell Dotson\.br\Date and Time Co-Signed: 04/25/24 10:12 EST Basic Metabolic Panelon 12-0 Anion gap [Moles/Vol] 12.5 mmol/L Normal 6.0-15.0 [facility] Comment on above: Performed By: #### C BC, HEPATIC, BMP, LIPASE ####[place] [address] [place] [id number] [facility] Calcium [Mass/Vol] 8.9 mg/dL Normal 8.6-10.3 [facility] Comment on above: Performed By: #### C BC, HEPATIC, BMP, LIPASE ####[facility] [place] [address] [place] Chloride [Moles/Vol] 103 mmol/L Normal 98-107 [facility] Comment on above: Performed By: #### C BC, HEPATIC, BMP, LIPASE ####[facility] [place] [address] [facility] CO2 [Moles/Vol] 24.7 mmol/L Normal 21.0-31.0 The [facility] Comment on above: Performed By: #### C BC, HEPATIC, BMP, LIPASE ####[place] [address] Creatinine [Mass/Vol] 0.90 mg/dL Normal 0.70-1.30 [facility] Comment on above: Performed By: #### C BC, HEPATIC, BMP, LIPASE ####[place] [address] Creatinine Clr Calc Pharmacy 89.89 Normal [facility] Comment on above: Performed By: #### C BC, HEPATIC, BMP, LIPASE ####[place] [address] GFR/1.73 sq M.predicted MDRD (S/P/Bld) [Vol rate/Area] mL/min/{1.73_m2} Normal [facility] Comment on above: Performed By: #### C BC, HEPATIC, BMP, LIPASE ####[place] [address] Glucose [Mass/Vol] 112 mg/dL High 70-100 [facility] Comment on above: Result Comment: [facility] Glucose Reference Range is dependent on time and content of last meal. Glucose of more than 200 mg/dL in a nonstressed, ambulatory subject supports the diagnosis of Diabetes Mellitus. ADA recommended reference range Performed By: #### C BC, HEPATIC, BMP, LIPASE ####[place] [address] Potassium [Moles/Vol] 4.2 mmol/L Normal 3.5-5.1 [facility] Comment on above: Performed By: #### C BC, HEPATIC, BMP, LIPASE ####[place] [address] Sodium [Moles/Vol] 136 mmol/L Normal 136-145 [facility] Comment on above: Performed By: #### C BC, HEPATIC, BMP, LIPASE ####[place] [address] Urea nitrogen [Mass/Vol] 29 mg/dL High 7-25 [facility] Comment on above: Performed By: #### C BC, HEPATIC, BMP, LIPASE ####[facility] [id number] abdomen pelvis w conon CT abdomen pelvis w con [facility] [address] [place] [address] [place] [address] CT Scan Report Signed Patient: Raquel Randolph MR#: [id number] 08 : 1950 Acct:[id number] Age/Sex: 73 / M ADM Date: 04/23/24 Loc: ER Room: Type: [facility] ER Attending Dr: Copies to: Abdi Lobo DO Ordering Provider: Abdi Lobo DO Date of Service: 04/23/24 CT/CT abdomen pelvis w con: rlq pain CT Abdomen and Pelvis withcontrast TECHNIQUE: Axial imaging with 2-D reconstruction.90 cc of Isovue-300. The CT exam was performed using one or more the following dose reduction techniques: Automated exposure control, adjustment of the MA and/or Kv according to patient size, or use of the iterative reconstruction technique. COMPARISON: 10/24/2013 History: Right lower quadrant pain. Nausea and vomiting. History kidney stones LIMITATIONS: None LOWER THORAX Unremarkable LIVER: Unremarkable GALLBLADDER: No gallbladder abnormality identified. BILE DUCTS: No dilatation SPLEEN: Unremarkable PANCREAS: Unremarkable ADRENAL GLANDS: Unremarkable KIDNEYS:Obstructing 7 mm right UPJ stone with moderate hydronephrosis. Punctate right calyceal stone. Parapelvic renal cysts. perinephric stranding greater on the right. AORTA: No abdominal aortic aneurysm identified. Atherosclerosis. RETROPERITONEUM: No significant retroperitoneal abnormalities identified. MESENTERY:Unremarkabl e SMALL BOWEL: The small bowel loops are nondistended. APPENDIX: The appendix is normal. COLON: Unremarkable URINARY BLADDER: Urinary bladder is unremarkable. REPRODUCTIVE SYSTEM: Reproductive structures are unremarkable. PNEUMOPERITONEUM: None PERITONEAL FLUID:None BONY STRUCTURES: Unremarkable ABDOMINAL WALL: Unremarkable CT/CT abdomen pelvis w con IMPRESSION: 7 mm obstructing right UPJ stone with moderate hydronephrosis. Normal appendix. Impression dictated by: Anibal Contreras M.D.04/23/2024 8:36 AM Dictation Location: [place] [address] Transcribed By: VAZQUEZ 04/23/24835 Dictated By: Anibal Contreras DO 04/23/24829 Signed By: 04/23/24835 Normal [facility] Complete Blood Count Auto Di ffon 04-23-2024 Basophils (Bld) [#/Vol] 0.1 10*3/uL Normal 0.0-0.2 [facility] Comment on above: Result Comment: PERF ORMED BY: [address] [place] [address] PATHOLOGIST SALESPERSON [employer] FELIZ FAY M.D. Performed By: #### C BC, HEPATIC, BMP, LIPASE ####[address] Basophils/100 WBC (Bld) 0.9 % Normal . T [facility] Comment on above: Performed By: #### C BC, HEPATIC, BMP, LIPASE ####[address] Eosinophils (Bld) [#/Vol] 0.1 10*3/uL Normal 0.0-0.45 [facility] Comment on above: Performed By: #### C BC, HEPATIC, BMP, LIPASE ####[address] Eosinophils/100 WBC (Bld) 1.5 % Normal . [facility] Comment on above: Performed By: #### C BC, HEPATIC, BMP, LIPASE ####[address] Erythrocyte distribution width (RBC) [Ratio] 13.5 % Normal 12.0-14.8 [facility] Comment on above: Performed By: #### C BC, HEPATIC, BMP, LIPASE ####[address] Hematocrit (Bld) [Volume fraction] 43.0 % Normal 38.8-50.0 [facility] Comment on above: Performed By: #### C BC, HEPATIC, BMP, LIPASE ####[address] Hemoglobin (Bld) [Mass/Vol] 14.8 g/dL Normal 13.0-17.0 [facility] Comment on above: Performed By: #### C BC, HEPATIC, BMP, LIPASE ####[address] Lymphocytes (Bld) [#/Vol] 1.7 10*3/uL Normal 1.00-4.8 [facility] Comment on above: Performed By: #### C BC, HEPATIC, BMP, LIPASE ####[address] Lymphocytes/100 WBC (Bld) 28.8 % Normal . [facility] Comment on above: Performed By: #### C BC, HEPATIC, BMP, LIPASE ####[address] MCH (RBC) [Entitic mass] 32.0 pg Normal 27.5-35.2 [facility] Comment on above: Performed By: #### C BC, HEPATIC, BMP, LIPASE ####[address] MCV (RBC) [Entitic vol] 93.0 fL Normal 83.5-101 T [facility] Comment on above: Performed By: #### C BC, HEPATIC, BMP, LIPASE ####[address] Mean Corpuscular HGB Conc 34.4 g/dL Normal 32.5-35.6 [facility] Comment on above: Performed By: #### C BC, HEPATIC, BMP, LIPASE ####[address] Monocytes (Bld) [#/Vol] 0.7 10*3/uL Normal 0.0-0.8 [facility] Comment on above: Performed By: #### C BC, HEPATIC, BMP, LIPASE ####[address] Monocytes/100 WBC (Bld) 16.40 % Normal 0.00-20.00 T [facility] Comment on above: Performed By: #### C BC, HEPATIC, BMP, LIPASE ####[address] Monocytes/100 WBC (Bld) 11.8 % Normal . T [facility] Comment on above: Performed By: #### C BC, HEPATIC, BMP, LIPASE ####[address] Neutrophils (Bld) [#/Vol] 3.3 10*3/uL Normal 1.8-7.7 [facility] Comment on above: Performed By: #### C BC, HEPATIC, BMP, LIPASE ####[address] Neutrophils/100 WBC (Bld) 57.0 % Normal . [facility] Comment on above: Performed By: #### C BC, HEPATIC, BMP, LIPASE ####[address] NRBC% 0.1 /100{WBC} Normal 0-0.5 The [facility] Comment on above: Performed By: #### C BC, HEPATIC, BMP, LIPASE ####[address] Platelet mean volume (Bld) [Entitic vol] 8.0 fL Normal 6.6-10.1 The [facility] Comment on above: Performed By: #### C BC, HEPATIC, BMP, LIPASE ####[address] Platelets (Bld) [#/Vol] 213 10*3/uL Normal 150-450 [facility] Comment on above: Performed By: #### C BC, HEPATIC, BMP, LIPASE ####[address] RBC (Bld) [#/Vol] 4.62 10*6/uL Normal 3.90-5.60 The [facility] Comment on above: Performed By: #### C BC, HEPATIC, BMP, LIPASE ####[address] [place] [address] [place] WBC (Bld) [#/Vol] 5.8 10*3/uL Normal 4.1-10.5 [facility] Comment on above: Performed By: #### C BC, HEPATIC, BMP, LIPASE ####[place] [address] [place] Dipstick and Microscopicon 1 06-24-2023 Appearance (U) Clear Normal Clear [facility] Comment on above: Order Comment: Name Collection Type:: Clean-Voided Midstream Performed By: #### A DDONUAPLUS #### [place] [address] [place] Bacteria,Urine None Seen Normal None Seen [facility] Comment on above: Order Comment: Name Collection Type:: Clean-Voided Midstream Performed By: #### A DDONUAPLUS #### [address] Bilirubin,Urine Negative Normal Negative The [facility] Comment on above: Order Comment: Name Collection Type:: Clean-Voided Midstream Performed By: #### A DDONUAPLUS #### [address] Color (U) Light-Yellow Normal Yellow The [facility] Comment on above: Order Comment: Name Collection Type:: Clean-Voided Midstream Performed By: #### A DDONUAPLUS #### [address] Glucose Ql (U) Normal Normal Normal [facility] Comment on above: Order Comment: Name Collection Type:: Clean-Voided Midstream Performed By: #### A DDONUAPLUS #### [place] [address] [place] Hyaline Casts,Urine None Normal 0-8 [facility] Comment on above: Order Comment: Name Collection Type:: Clean-Voided Midstream Performed By: #### A DDONUAPLUS #### [address] Ketones Ql (U) Negative Normal Negative [facility] Comment on above: Order Comment: Name Collection Type:: Clean-Voided Midstream Performed By: #### A DDONUAPLUS #### [address] Leukocyte esterase Test strip Ql (U) Negative Normal Negative [facility] Comment on above: Order Comment: Name Collection Type:: Clean-Voided Midstream Performed By: #### A DDONUAPLUS #### [place] [address] [place] Mucus,Urine 1+ Critically abnormal [facility] Comment on above: Order Comment: Name Collection Type:: Clean-Voided Midstream Result Comment: PERF ORMED BY: [place] [address] PATHOLOGIST SALESPERSON [employer] FELIZ FAY M.D. Performed By: #### A DDONUAPLUS #### [place] [address] [place] Nitrite,Urine Negative Normal Negative The [facility] Comment on above: Order Comment: Name Collection Type:: Clean-Voided Midstream Performed By: #### A DDONUAPLUS #### [place] [address] [place] Occult Blood,Urine 3+ High Negative [facility] Comment on above: Order Comment: Name Collection Type:: Clean-Voided Midstream Result Comment: PERF ORMED BY: [place] [address] PATHOLOGIST SALESPERSON [employer] FELIZ FAY M.D. Performed By: #### A DDONUAPLUS #### [place] [address] [place] pH (U) 5.5 [pH] Normal 5.0-9.0 [facility] Comment on above: Order Comment: Name Collection Type:: Clean-Voided Midstream Performed By: #### A DDONUAPLUS #### [place] [address] [place] Protein,Urine Trace High Negative [facility] Comment on above: Order Comment: Name Collection Type:: Clean-Voided Midstream Performed By: #### A DDONUAPLUS #### [address] RBC,Urine Innumerable High 0-4 [facility] Comment on above: Order Comment: Name Collection Type:: Clean-Voided Midstream Performed By: #### A DDONUAPLUS #### [address] Specificy [place],Urine 1.018 Normal 1.001-1.030 [facility] Comment on above: Order Comment: Name Collection Type:: Clean-Voided Midstream Performed By: #### A DDONUAPLUS #### [address] Urobilinogen,Urine Normal Normal Normal [facility] Comment on above: Order Comment: Name Collection Type:: Clean-Voided Midstream Performed By: #### A DDONUAPLUS #### [address] WBC,Urine 1 [HPF] Normal 0-4 [facility] Comment on above: Order Comment: Name Collection Type:: Clean-Voided Midstream Performed By: #### A DDONUAPLUS #### [address] Hepatic Panelon 04-23-2024 Albumin [Mass/Vol] 4.1 g/dL Normal 3.5-5.7 [facility] Comment on above: Performed By: #### C BC, HEPATIC, BMP, LIPASE ####[address] Albumin/Globulin [Mass ratio] 1.5 {ratio} Normal [facility] Comment on above: Performed By: #### C BC, HEPATIC, BMP, LIPASE ####[address] ALP [Catalytic activity/Vol] 59 U/L Normal 34-104 [facility] Comment on above: Performed By: #### C BC, HEPATIC, BMP, LIPASE ####[place] [address] [place] [id number] [facility] ALT [Catalytic activity/Vol] 23 U/L Normal 7-52 [facility] Comment on above: Performed By: #### C BC, HEPATIC, BMP, LIPASE ####[place] [id number] [facility] AST [Catalytic activity/Vol] 19 U/L Normal 13-39 [facility] Comment on above: Performed By: #### C BC, HEPATIC, BMP, LIPASE ####[address] Bilirubin [Mass/Vol] 1.2 mg/dL High 0.3-1.0 [facility] Comment on above: Performed By: #### C BC, HEPATIC, BMP, LIPASE ####[address] Bilirubin,Indirect 1.1 mg/dL Normal [facility] Comment on above: Performed By: #### C BC, HEPATIC, BMP, LIPASE ####[address] Bilirubin.indirect [Mass/Vol] 0.10 mg/dL Normal 0.03-0.18 [facility] Comment on above: Performed By: #### C BC, HEPATIC, BMP, LIPASE ####[address] Globulin (S) [Mass/Vol] 2.8 g/dL Normal T he [facility] Comment on above: Performed By: #### C BC, HEPATIC, BMP, LIPASE ####[place] [id number] [facility] Protein [Mass/Vol] 6.9 g/dL Normal 6.4-8.9 [facility] Comment on above: Performed By: #### C BC, HEPATIC, BMP, LIPASE ####[place] [id number] [facility] Lipaseon 04-23-2024 Lipase [Catalytic activity/Vol] 13.0 U/L Normal 11.0-82.0 [facility] Comment on above: Result Comment: PERF ORMED BY: [facility] [address] [place] [address] PATHOLOGIST SALESPERSON [employer] FELIZ FAY M.D. Performed By: #### C BC, HEPATIC, BMP, LIPASE ####[facility] [id number] [place] [id number] [place] XR KUBon 04-23-2024 XR KUB [facility] [address] [place] [address] [place] [address] XRay Report Signed Patient: Raquel Randolph MR#: [id number] 08 : 1950 Acct:[id number] Age/Sex: 73 / M ADM Date: 04/23/24 Loc: ER Room: Type: [facility] ER Attending Dr: Copies to: Abdi Lobo DO Ordering Provider: Abdi Lobo DO Date of Service: 04/23/24 XR/XR KUB: Abdominal Pain KUB: COMPARISON: CT 04/23/2024 CLINICAL DATA: Right-sided abdominal pain and vomiting. Right UPJ stone. Supine views of the abdomen and pelvis were obtained. There is air within nondistended small bowel. There is air and stool along the colon, greater on the right. No soft tissue masses are identified. The right ureteropelvic junction stone seen on CT is visualized. It measures approximately 5 mm in size. There is contrast within the collecting systems from CT . Mild fullness is present on the right. There is also contrast within the urinary bladder. There are degenerative changes at the spine. XR/XR KUB IMPRESSION: NONSPECIFIC, NONOBSTRUCTIVE BOWEL GAS PATTERN. RIGHT URETEROPELVIC JUNCTION STONE. Impression dictated by: Winifred Ac M.D.04/23/2024 11:19 AM Dictation Location: [place] [address] Transcribed By: [facility] 04/23/24 1119 Dictated By: Winifred Ac MD 04/23/24 1116 Signed By: 04/23/24 1119 Normal [facility] A1C with Estimated Average [facility] 06-06-2023 Glucose [Mass/Vol] 126 mg/dL Normal [facility] Comment on above: Order Comment: Reaso n for Exam Medicare annual wellness visit, subsequent;Hypercholesteremi Result Comment: PERF ORMED BY: [facility] [address] [place] [id number] PATHOLOGIST SALESPERSON [employer] IRAIDA SPENCE M.D. Performed By: #### L IPID, CBC, [id number], CMP, A1C WTH eA, TSH3 wRFLX ####[place] [address] [place] [address] [place] Alanine aminotransferase [En zymatic activity/volume] in Serum or PlasmaOrdered By: Wendy Pastor on 06-06-2023 ALT [Catalytic activity/Vol] 27 U/L Normal 7-52 [facility] Comment on above: Order Comment: Reaso n for Exam Medicare annual wellness visit, subsequent;Hypercholesteremi Performed By: #### L IPID, CBC, [id number], CMP, A1C WTH eA, TSH3 wRFLX ####[place] [address] [place] [address] [place] Albumin [Mass/volume] in Ser um or Plasma by Bromocresol green (BCG) dye binding methoOrdered By: Wendy Pastor on 06-06-2023 Albumin BCG dye [Mass/Vol] 4.1 g/dL 3.5-5.7 [facility] Alkaline phosphatase [Enzyma tic activity/volume] in Serum or PlasmaOrdered By: Wendy Pastor on 06-06-2023 ALP [Catalytic activity/Vol] 68 U/L Normal 34-104 [facility] Comment on above: Order Comment: Reaso n for Exam Medicare annual wellness visit, subsequent;Hypercholesteremi Performed By: #### L IPID, CBC, [id number], CMP, A1C WTH eA, TSH3 wRFLX ####[place] [address] [place] [address] [place] Aspartate aminotransferase [ Enzymatic activity/volume] in Serum or PlasmaOrdered By: Wendy Pastor on 06-06-2023 AST [Catalytic activity/Vol] 19 U/L Normal 13-39 [facility] Comment on above: Order Comment: Reaso n for Exam Medicare annual wellness visit, subsequent;Hypercholesteremi Performed By: #### L IPID, CBC, [id number], CMP, A1C WTH eA, TSH3 wRFLX ####[place] [address] [place] [address] [facility] Automated basophil %Ordered By: Wendy Pastor on 06-06-2023 Basophils/100 WBC (Bld) 0.8 % Normal . [facility] Comment on above: Order Comment: Reaso n for Exam Medicare annual wellness visit, subsequent;Hypercholesteremi Performed By: #### L IPID, CBC, [id number], CMP, A1C WTH eA, TSH3 wRFLX ####[place] [address] [place] [address] [facility] Automated basophil countOrde red By: Wendy Pastor on 06-06-2023 Basophils (Bld) [#/Vol] 0.1 10*3/uL Normal 0.0-0.2 [facility] Comment on above: Order Comment: Reaso n for Exam Medicare annual wellness visit, subsequent;Hypercholesteremi Result Comment: PERF ORMED BY: [facility] [address] [facility] [place] [address] PATHOLOGIST SALESPERSON [employer] IRAIDA SPENCE M.D. Performed By: #### L IPID, CBC, [id number], CMP, A1C WTH eA, TSH3 wRFLX ####[place] [address] [place] [address] [facility] Automated blood monocyte cou ntOrdered By: Wendy Pastor on 06-06-2023 Monocytes (Bld) [#/Vol] 1.0 10*3/uL High 0.0-0.8 [facility] Comment on above: Order Comment: Reaso n for Exam Medicare annual wellness visit, subsequent;Hypercholesteremi Performed By: #### L IPID, CBC, [id number], CMP, A1C WTH eA, TSH3 wRFLX ####[facility] [place] [address] [facility] Automated eosinophil %Ordere d By: Wendy Pastor on 06-06-2023 Eosinophils/100 WBC (Bld) 1.4 % Normal . [facility] Comment on above: Order Comment: Reaso n for Exam Medicare annual wellness visit, subsequent;Hypercholesteremi Performed By: #### L IPID, CBC, [id number], CMP, A1C WTH eA, TSH3 wRFLX ####[place] [address] [place] [address] [facility] Automated eosinophil countOr dered By: Wendy Pastor on 06-06-2023 Eosinophils (Bld) [#/Vol] 0.1 10*3/uL Normal 0.0-0.45 [facility] Comment on above: Order Comment: Reaso n for Exam Medicare annual wellness visit, subsequent;Hypercholesteremi Performed By: #### L IPID, CBC, [id number], CMP, A1C WTH eA, TSH3 wRFLX ####[address] [address] [facility] Automated monocyte %Ordered By: Wendy Pastor on 06-06-2023 Monocytes/100 WBC (Bld) 11.1 % Normal . [facility] Comment on above: Order Comment: Reaso n for Exam Medicare annual wellness visit, subsequent;Hypercholesteremi Performed By: #### L IPID, CBC, [id number], CMP, A1C WTH eA, TSH3 wRFLX ####[place] [address] [place] [address] [facility] Automated neutrophil %Ordere d By: Wendy Pastor on 06-06-2023 Neutrophils/100 WBC (Bld) 61.4 % Normal . [facility] Comment on above: Order Comment: Reaso n for Exam Medicare annual wellness visit, subsequent;Hypercholesteremi Performed By: #### L IPID, CBC, [id number], CMP, A1C WTH eA, TSH3 wRFLX ####[address] [address] [facility] Bilirubin.total [Mass/volume ] in Serum or PlasmaOrdered By: Wendy Pastor on 06-06-2023 Bilirubin [Mass/Vol] 1.2 mg/dL High 0.3-1.0 [facility] Comment on above: Order Comment: Reaso n for Exam Medicare annual wellness visit, subsequent;Hypercholesteremi Performed By: #### L IPID, CBC, [id number], CMP, A1C WTH eA, TSH3 wRFLX ####[facility] [id number] [place] [address] [place] Calcium [Mass/volume] in Ser um or PlasmaOrdered By: Wendy Pastor on 06-06-2023 Calcium [Mass/Vol] 8.9 mg/dL Normal 8.6-10.3 [facility] Comment on above: Order Comment: Reaso n for Exam Medicare annual wellness visit, subsequent;Hypercholesteremi Performed By: #### L IPID, CBC, [id number], CMP, A1C WTH eA, TSH3 wRFLX ####[place] [address] [place] [address] [place] Carbon dioxide, total [Moles /volume] in Serum or PlasmaOrdered By: Wendy Pastor on 06-06-2023 CO2 [Moles/Vol] 28.6 mmol/L Normal 21.0-31.0 [facility] Comment on above: Order Comment: Reaso n for Exam Medicare annual wellness visit, subsequent;Hypercholesteremi Performed By: #### L IPID, CBC, [id number], CMP, A1C WTH eA, TSH3 wRFLX ####[facility] [id number] [place] [address] [place] Chloride [Moles/volume] in S shawn or PlasmaOrdered By: Wendy Pastor on 06-06-2023 Chloride [Moles/Vol] 103 mmol/L Normal 98-107 [facility] Comment on above: Order Comment: Reaso n for Exam Medicare annual wellness visit, subsequent;Hypercholesteremi Performed By: #### L IPID, CBC, [id number], CMP, A1C WTH eA, TSH3 wRFLX ####[address] [address] [place] Cholesterol [Mass/volume] in Serum or PlasmaOrdered By: Wendy Pastor on 06-06-2023 Cholesterol [Mass/Vol] 203 mg/dL High 140-200 [place] Comment on above: Chol less than 200 m g/dl low riskChol 201-239 mg/dl borderline riskChol 240 mg/dl and greater high risk Order Comment: Rowan pete for Exam Medicare annual wellness visit, subsequent;Hypercholesteremi Result Comment: Chol less than 200 mg/dl low risk Chol 201-239 mg/dl borderline risk Chol 240 mg/dl and greater high risk Performed By: #### L IPID, CBC, [id number], CMP, A1C WTH eA, TSH3 wRFLX ####[facility] [place] [address] [facility] Cholesterol in LDL Calc [Mas s/Vol]Ordered By: Wendy Pastor on 06-06-2023 Cholesterol in LDL [Mass/Vol] 133 mg/dL 0-100 [facility] [facility] Comment on above: LDL ATP III CLASSIFI CATIONLDL less than 100 mg/dL OptimalLDL 100-129 mg/dL Near or above optimalLDL 130-159 mg/dL Borderline highLDL 160-189 mg/dL HighLDL greater than 189 mg/dL Very high Cholesterol in VLDL Calc [Ma ss/Vol]Ordered By: Wendy Pastor on 06-06-2023 Cholesterol in VLDL [Mass/Vol] 15 mg/dL [facility] Complete Blood Count Auto Di ffon 06-06-2023 Mean Corpuscular HGB Conc 34.3 g/dL Normal 32.5-35.6 [facility] Comment on above: Order Comment: Rowan pete for Exam Medicare annual wellness visit, subsequent;Hypercholesteremi Performed By: #### L IPID, CBC, [id number], CMP, A1C WTH eA, TSH3 wRFLX ####[facility] [place] [address] [facility] NRBC% 0.0 /100{WBC} Normal 0-0.5 [facility] Comment on above: Order Comment: Rowan pete for Exam Medicare annual wellness visit, subsequent;Hypercholesteremi Performed By: #### L IPID, CBC, [id number], CMP, A1C WTH eA, TSH3 wRFLX ####[facility] [id number] [place] [address] [facility] Comprehensive Metabolic Pane howard 06-06-2023 Albumin [Mass/Vol] 4.1 g/dL Normal 3.5-5.7 [facility] Comment on above: Order Comment: Rowan pete for Exam Medicare annual wellness visit, subsequent;Hypercholesteremi Performed By: #### L IPID, CBC, [id number], CMP, A1C WTH eA, TSH3 wRFLX ####[facility] [place] [address] [facility] GFR/1.73 sq M.predicted MDRD (S/P/Bld) [Vol rate/Area] mL/min/{1.73_m2} Normal [facility] Comment on above: Order Comment: Rowan pete for Exam Medicare annual wellness visit, subsequent;Hypercholesteremi Performed By: #### L IPID, CBC, [id number], CMP, A1C WTH eA, TSH3 wRFLX ####[address] [place] [address] [facility] Creatinine [Mass/volume] in Serum or PlasmaOrdered By: Wendy Pastor on 06-06-2023 Creatinine [Mass/Vol] 0.82 mg/dL Normal 0.70-1.30 [facility] Comment on above: Order Comment: Rowan pete for Exam Medicare annual wellness visit, subsequent;Hypercholesteremi Performed By: #### L IPID, CBC, [id number], CMP, A1C WTH eA, TSH3 wRFLX ####[address] [place] [address] [facility] Erythrocyte distribution wid th [Ratio] by Automated countOrdered By: Wendy Pastor on 06-06-2023 Erythrocyte distribution width (RBC) [Ratio] 13.8 % Normal 12.0-14.8 [facility] Comment on above: Order Comment: Rowan pete for Exam Medicare annual wellness visit, subsequent;Hypercholesteremi Performed By: #### L IPID, CBC, [id number], CMP, A1C WTH eA, TSH3 wRFLX ####[address] [place] [address] [facility] Erythrocytes [#/volume] in B lood by Automated countOrdered By: Wendy Patsor on 06-06-2023 RBC (Bld) [#/Vol] 4.51 10*6/uL Normal 3.90-5.60 [facility] Comment on above: Order Comment: Rowan n for Exam Medicare annual wellness visit, subsequent;Hypercholesteremi Performed By: #### L IPID, CBC, [id number], CMP, A1C WTH eA, TSH3 wRFLX ####[facility] [id number] [place] [address] [facility] Glucose [Mass/volume] in Ser um or PlasmaOrdered By: Wendy Pastor on 06-06-2023 Glucose [Mass/Vol] 94 mg/dL Normal 70-100 [facility] Comment on above: ADA recommended refe rence rangeRandom Glucose Reference Range is dependent on time and content of last meal. Glucose of more than 200 mg/dL in a nonstressed, ambulatory subject supports the diagnosis of Diabetes Mellitus. Order Comment: Rowan n for Exam Medicare annual wellness visit, subsequent;Hypercholesteremi Result Comment: [place] Glucose Reference Range is dependent on time and content of last meal. Glucose of more than 200 mg/dL in a nonstressed, ambulatory subject supports the diagnosis of Diabetes Mellitus. ADA recommended reference range Performed By: #### L IPID, CBC, [id number], CMP, A1C WTH eA, TSH3 wRFLX ####[facility] [id number] [place] [address] [facility] Glucose mean value [Mass/vol ume] in Blood Estimated from glycated hemoglobinOrdered By: Wendy Pastor on 06-06-2023 Average glucose Estimated from glycated hemoglobin (Bld) [Mass/Vol] 126 mg/dL [facility] Hematocrit [Volume Fraction] of Blood by Automated countOrdered By: Wendy Pastor on 06-06-2023 Hematocrit (Bld) [Volume fraction] 42.2 % Normal 38.8-50.0 [facility] Comment on above: Order Comment: Rowan n for Exam Medicare annual wellness visit, subsequent;Hypercholesteremi Performed By: #### L IPID, CBC, [id number], CMP, A1C WTH eA, TSH3 wRFLX ####[facility] [place] [address] [facility] Hemoglobin A1c percentageOrd ered By: Wendy Pastor on 06-06-2023 HbA1c (Bld) [Mass fraction] 6.0 % High 4.3-5.6 [facility] Comment on above: Increased risk for d iabetes: 5.7 - 6.4diabetes: >6.4glycemic control for adults with diabetes: <7.0 Order Comment: Rowan n for Exam Medicare annual wellness visit, subsequent;Hypercholesteremi Result Comment: Incr eased risk for diabetes: 5.7 - 6.4 diabetes: >6.4 glycemic control for adults with diabetes: <7.0 Performed By: #### L IPID, CBC, [id number], CMP, A1C WTH , [facility]3 wRFLX ####[address] [address] [facility] Hemoglobin [Mass/volume] in BloodOrdered By: Wendy Pastor on 06-06-2023 Hemoglobin (Bld) [Mass/Vol] 14.5 g/dL Normal 13.0-17.0 [facility] Comment on above: Order Comment: Rowan pete for Exam Medicare annual wellness visit, subsequent;Hypercholesteremi Performed By: #### L IPID, CBC, [id number], CMP, A1C WTH , [facility]3 wRFLX ####[address] [address] [facility] Leukocytes [#/volume] correc gianni for nucleated erythrocytes in Blood by Automated counOrdered By: Wendy Pastor on 06-06-2023 WBC corrected for nucl RBC Auto (Bld) [#/Vol] 8.6 10*3/uL 4.1-10.5 [facility] Leukocytes [#/volume] in Blo od by Automated countOrdered By: Wendy Pastor on 06-06-2023 WBC (Bld) [#/Vol] 8.6 10*3/uL Normal 4.1-10.5 [facility] Comment on above: Order Comment: Rowan pete for Exam Medicare annual wellness visit, subsequent;Hypercholesteremi Performed By: #### L IPID, CBC, [id number], CMP, A1C WTH eA, TSH3 wRFLX ####[facility] [place] [address] [facility] Lipid Panelon 06-06-2023 LDL Cholesterol,Calculated 133 mg/dL High 0-100 [facility] Comment on above: Order Comment: Reaso n for Exam Medicare annual wellness visit, subsequent;Hypercholesteremi Result Comment: LDL ATP III CLASSIFICATION LDL less than 100 mg/dL Optimal LDL 100-129 mg/dL Near or above optimal LDL 130-159 mg/dL Borderline high LDL 160-189 mg/dL High LDL greater than 189 mg/dL Very high Performed By: #### L IPID, CBC, [id number], CMP, A1C WT eA, TSH3 wRFLX ####[address] [place] [id number] [facility] Triglyceride w/Reflex 77 mg/dL Normal 0-149 [facility] Comment on above: Order Comment: Reaso n for Exam Medicare annual wellness visit, subsequent;Hypercholesteremi Result Comment: TRIG ATP III CLASSIFICATION TRIG less than 150 mg/dL Normal TRIG 150-199 mg/dL Borderline high TRIG 200-500 mg/dL High TRIG greater than 500 mg/dL Very high Standard traceable to the Center for Disease Conrtrol and Prevention (CDC) test method. Performed By: #### L IPID, CBC, [id number], CMP, A1C WTH eA, TSH3 wRFLX ####[address] [place] [id number] [facility] VLDL CHOLESTEROL 15 mg/dL Normal [facility] Comment on above: Order Comment: Reaso n for Exam Medicare annual wellness visit, subsequent;Hypercholesteremi Performed By: #### L IPID, CBC, [id number], CMP, A1C WTH eA, TSH3 wRFLX ####[address] [place] [id number] [facility] Lymphocytes [#/volume] in Bl ood by Automated countOrdered By: Wendy Pastor on 06-06-2023 Lymphocytes (Bld) [#/Vol] 2.2 10*3/uL Normal 1.00-4.8 [facility] Comment on above: Order Comment: Reaso n for Exam Medicare annual wellness visit, subsequent;Hypercholesteremi Performed By: #### L IPID, CBC, [id number], CMP, A1C WTH eA, TSH3 wRFLX ####[facility] [id number] [place] [address] [facility] Lymphocytes/100 leukocytes i n Blood by Automated countOrdered By: Wendy Pastor on 06-06-2023 Lymphocytes/100 WBC (Bld) 25.3 % Normal . [facility] Comment on above: Order Comment: Reaso n for Exam Medicare annual wellness visit, subsequent;Hypercholesteremi Performed By: #### L IPID, CBC, [id number], CMP, A1C WTH eA, TSH3 wRFLX ####[facility] [place] [address] [facility] MCH [Entitic mass] by Automa gianni countOrdered By: Wendy Pastor on 06-06-2023 MCH (RBC) [Entitic mass] 32.1 pg Normal 27.5-35.2 [facility] Comment on above: Order Comment: Reaso n for Exam Medicare annual wellness visit, subsequent;Hypercholesteremi Performed By: #### L IPID, CBC, [id number], CMP, A1C WTH eA, TSH3 wRFLX ####[facility] [place] [address] [facility] MCHC Auto (RBC) [Mass/Vol]Or dered By: Wendy Pastor on 06-06-2023 MCHC (RBC) [Mass/Vol] 34.3 g/dL 32.5-35.6 [facility] MCV [Entitic volume] by Auto mated countOrdered By: Wendy Pastor on 06-06-2023 MCV (RBC) [Entitic vol] 93.6 fL Normal 83.5-101 [facility] Comment on above: Order Comment: Reaso n for Exam Medicare annual wellness visit, subsequent;Hypercholesteremi Performed By: #### L IPID, CBC, [id number], CMP, A1C WTH eA, TSH3 wRFLX ####[address] [place] [id number] [facility] Neutrophils [#/volume] in Bl ood by Automated countOrdered By: Wendy Pastor on 06-06-2023 Neutrophils (Bld) [#/Vol] 5.3 10*3/uL Normal 1.8-7.7 [facility] Comment on above: Order Comment: Reaso n for Exam Medicare annual wellness visit, subsequent;Hypercholesteremi Performed By: #### L IPID, CBC, [id number], CMP, A1C WTH eA, TSH3 wRFLX ####[address] [place] [id number] [facility] No Panel InformationOrdered By: Wendy Pastor on 06-06-2023 Estimated GFR (CKD-EPI) > 60.0 mL/Min [facility] Creatinine Clearance (Chem N/A [facility] Nucleated erythrocytes [Pres ence] in Blood by Automated countOrdered By: Wendy Pastor on 06-06-2023 Nucleated RBC Auto Ql (Bld) 0.0 /100{WBC} 0-0.5 [facility] Platelet mean volume [Entiti c volume] in Blood by Automated countOrdered By: Wendy Pastor on 06-06-2023 Platelet mean volume (Bld) [Entitic vol] 7.9 fL Normal 6.6-10.1 [facility] Comment on above: Order Comment: Reaso n for Exam Medicare annual wellness visit, subsequent;Hypercholesteremi Performed By: #### L IPID, CBC, [id number], CMP, A1C WTH eA, TSH3 wRFLX ####[place] [id number] [facility] Platelets [#/volume] in Bloo d by Automated countOrdered By: Wendy Pastor on 06-06-2023 Platelets (Bld) [#/Vol] 228 10*3/uL Normal 150-450 [facility] Comment on above: Order Comment: Reaso n for Exam Medicare annual wellness visit, subsequent;Hypercholesteremi Performed By: #### L IPID, CBC, [id number], CMP, A1C WTH eA, TSH3 wRFLX ####[facility] [address] [place] [address] [facility] Potassium [Moles/volume] in Serum or PlasmaOrdered By: Wendy Pastor on 06-06-2023 Potassium [Moles/Vol] 4.6 mmol/L Normal 3.5-5.1 [facility] Comment on above: Order Comment: Reaso n for Exam Medicare annual wellness visit, subsequent;Hypercholesteremi Performed By: #### L IPID, CBC, [id number], CMP, A1C WTH eA, TSH3 wRFLX ####[address] [place] [address] [facility] Protein [Mass/volume] in Ser um or PlasmaOrdered By: Wendy Pastor on 06-06-2023 Protein [Mass/Vol] 6.2 g/dL Low 6.4-8.9 [facility] Comment on above: Order Comment: Reaso n for Exam Medicare annual wellness visit, subsequent;Hypercholesteremi Performed By: #### L IPID, CBC, [id number], CMP, A1C WTH eA, TSH3 wRFLX ####[address] [place] [address] [facility] Serum globulin measurement b y calculation (mass/volume)Ordered By: Wendy Pastor on 06-06-2023 Globulin (S) [Mass/Vol] 2.1 g/dL Normal [facility] Comment on above: Order Comment: Reaso n for Exam Medicare annual wellness visit, subsequent;Hypercholesteremi Performed By: #### L IPID, CBC, [id number], CMP, A1C WTH eA, TSH3 wRFLX ####[address] [place] [address] [facility] Serum or plasma albumin/glob ulin mass ratioOrdered By: Wendy Pastor on 06-06-2023 Albumin/Globulin [Mass ratio] 2.0 {ratio} Normal [facility] Comment on above: Order Comment: Reaso n for Exam Medicare annual wellness visit, subsequent;Hypercholesteremi Performed By: #### L IPID, CBC, [id number], CMP, A1C WTH eA, TSH3 wRFLX ####[facility] [id number] [place] [address] [facility] Serum or plasma anion gap de terminationOrdered By: Wendy Pastor on 06-06-2023 Anion gap [Moles/Vol] 11.0 mmol/L Normal 6.0-15.0 [place] Comment on above: Order Comment: Reaso n for Exam Medicare annual wellness visit, subsequent;Hypercholesteremi Performed By: #### L IPID, CBC, [id number], CMP, A1C [facility] eA, TSH3 wRFLX ####[facility] [id number] [place] [address] [facility] Serum or plasma high density lipoprotein (HDL) cholesterol measurementOrdered By: Wendy Pastor on 06-06-2023 Cholesterol in HDL [Mass/Vol] 55 mg/dL Normal 23-92 [facility] Comment on above: HDL CHOL ATP-III CLA SSIFICATION Cardiovascular RiskHDL > or equal to 60 mg/dL LOWHDL < 40 mg/dL HIGH Order Comment: Reaso n for Exam Medicare annual wellness visit, subsequent;Hypercholesteremi Result Comment: HDL CHOL ATP-III CLASSIFICATION Cardiovascular Risk HDL > or equal to 60 mg/dL LOW HDL < 40 mg/dL HIGH Performed By: #### L IPID, CBC, [id number], CMP, A1C [facility], TSH3 wRFLX ####[facility] [id number] [place] [address] [facility] Serum or plasma total choles terol/high density lipoprotein (HDL) cholesterol mass ratOrdered By: Wendy Pastor on 06-06-2023 Cholesterol.total/Liza sterol in HDL [Mass ratio] 3.7 {ratio} Normal <5.0 [facility] Comment on above: Order Comment: Reasnichelle pete for Exam Medicare annual wellness visit, subsequent;Hypercholesteremi Performed By: #### L IPID, CBC, [id number], CMP, A1C [facility] eA, TSH3 wRFLX ####[facility] [id number] [place] [address] [facility] Sodium [Moles/volume] in Ser um or PlasmaOrdered By: Wendy Pastor on 06-06-2023 Sodium [Moles/Vol] 138 mmol/L Normal 136-145 [facility] Comment on above: Order Comment: Reaso n for Exam Medicare annual wellness visit, subsequent;Hypercholesteremi Performed By: #### L IPID, CBC, [id number], CMP, A1C WTH eA, TSH3 wRFLX ####[facility] [place] [id number] [facility] Thyroid Stim Hormone w/Rflxo n 06-06-2023 Thyroid Stim Hormone w/Rflx 2.67 u[iU]/mL Normal 0.45-5.33 [facility] Comment on above: Order Comment: Reaso n for Exam Medicare annual wellness visit, subsequent;Hypercholesteremi Performed By: #### L IPID, CBC, [id number], CMP, A1C WTH eA, TSH3 wRFLX ####[address] [place] [id number] [facility] Thyrotropin [Units/volume] i n Serum or PlasmaOrdered By: Wendy Pastor on 06-06-2023 TSH Qn 2.67 m[IU]/L 0.45-5.33 [facility] Triglyceride [Mass/volume] i n Serum or PlasmaOrdered By: Wendy Pastor on 06-06-2023 Triglyceride [Mass/Vol] 77 mg/dL 0-149 [facility] Comment on above: TRIG ATP III CLASSIF ICATIONTRIG less than 150 mg/dL NormalTRIG 150-199 mg/dL Borderline highTRIG 200-500 mg/dL High TRIG greater than 500 mg/dL Very highStandard traceable to the Center for Disease Conrtrol and Prevention (CDC) test method. Urea nitrogen [Mass/volume] in Serum or PlasmaOrdered By: Wendy Pastor on 06-06-2023 Urea nitrogen [Mass/Vol] 19 mg/dL Normal 7-25 [facility] Comment on above: Order Comment: Reaso n for Exam Medicare annual wellness visit, subsequent;Hypercholesteremi Performed By: #### L IPID, CBC, [id number], CMP, A1C WTH eA, TSH3 wRFLX ####[facility] [id number] [place] [address] [facility] Vitamin D 25 Hydroxy Totalon 06-06-2023 Vitamin D 25 Hydroxy Total 17.2 ng/mL Low 30-100 [facility] Comment on above: Order Comment: Rowan n for Exam Medicare annual wellness visit, subsequent;Hypercholesteremi Result Comment: BE MIN D STATUS 25([place])VITAMIN D RANGE (ng/mL) Deficient <20 Insufficient 20 to <30 Sufficient 30 to 100 Reference: Mason Stewart, Fiona PUENTES, et al. Evaluation,treatment, and prevention of vitamin D deficiency; an Endocrine Society clinical practice guideline. JCEM. 2010; 96(7):1911-. PERFORMED BY: [facility] [address] [facility] [place] [id number] PATHOLOGIST SAL[employer] IRAIDA SPENCE M.D. Performed By: #### L IPID, CBC, [id number], CMP, A1C WTH eA, TSH3 wRFLX ####[facility] [address] [place] [address] [facility] Vitamin D+Metabolites [Mass/ volume] in Serum or PlasmaOrdered By: Wendy Pastor on 06-06-2023 Vitamin D+Metabolites [Mass/Vol] 17.2 ng/mL 30-100 [facility] Comment on above: VITAMIN D STATUS 25( [place])VITAMIN D RANGE (ng/mL) Deficient <20 Insufficient 20 to <30Sufficient 30 to 100Reference: Mason Stewart, Fiona PUENTES, et al. Evaluation,treatment, and prevention of vitamin D deficiency; an Endocrine Society clinical practice guideline. JCEM. 2010; 96(7):1911-. SARS-CoV-2 (COVID-19) RNA NA A+probe Ql (Resp)on 03-06-2023 SARS-CoV-2 (COVID-19) RNA MICHAEL+probe Ql (Unsp spec) Negative [facility] Other COVID Quick Testingon 2021 Result Negative [facility] Other Quick Strepon 04-18-2022 S. pyogenes Org specific cx Ql (Throat) Negative [facility] Other Quick Strep [facility] Other COVID Quick Testingon 2021 Result Positive [facility] Other COVID Quick Testingon 2020 Result Negative [facility] Other Vital Signs Date Time Vital Sign Value Performing Clinician Facility 04-25-2024 09:27-0500 Blood Pressure Location Montrelllinda HOLT [facility] 04-25-2024 09:27-0500 Body temperature 98.6 [degF] Montrell HOLT [facility] 04-25-2024 09:27-0500 Diastolic blood pressure 88 mm[Hg] Montrell HOLT [facility] 04-25-2024 09:27-0500 Heart rate 63 /min Montrell HOLT [facility] 04-25-2024 09:27-0500 Respiratory rate 18 /min Montrell HOLT [facility] 04-25-2024 09:27-0500 Systolic blood pressure 136 mm[Hg] Montrell HOLT [facility] 11-08-2023 09:47-0400 Body height 177.8 cm [facility] 11-08-2023 09:47-0400 Body mass index (BMI) [Ratio] 32.3 kg/m2 [facility] 11-08-2023 09:47-0400 Body temperature 97.6 [degF] [facility] 11-08-2023 09:47-0400 Body weight 102.05 kg [facility] 11-08-2023 09:47-0400 Diastolic blood pressure 81 mm[Hg] [facility] 11-08-2023 09:47-0400 Heart rate 61 /min [facility] 11-08-2023 09:47-0400 SaO2% (BldA) [Mass fraction] 95 % [facility] 11-08-2023 09:47-0400 Systolic blood pressure 145 mm[Hg] [facility] 08-20-2023 11:49-0400 Body temperature 98.4 [degF] DO [facility] 08-20-2023 11:49-0400 Body weight 106.59 kg DO [facility] 08-20-2023 11:49-0400 Diastolic blood pressure 82 mm[Hg] DO [facility] 08-20-2023 11:49-0400 Respiratory rate 20 /min DO [facility] 08-20-2023 11:49-0400 SaO2% (BldA) [Mass fraction] 98 % DO [facility] 08-20-2023 11:49-0400 Systolic blood pressure 148 mm[Hg] DO [facility] 06-05-2023 09:00-0500 Body height 177.8 cm DO [facility] 06-05-2023 09:00-0500 Body weight 106.59 kg DO [facility] 06-05-2023 09:00-0500 Diastolic blood pressure 76 mm[Hg] DO [facility] 06-05-2023 09:00-0500 Systolic blood pressure 130 mm[Hg] DO [facility] 03-06-2023 11:00-0400 Body height 177.8 cm Keila Chen Other [facility] Other 03-06-2023 11:00-0400 Body mass index (BMI) [Ratio] 32.28 kg/m2 Keila Chen Other [facility] Other 03-06-2023 11:00-0400 Body temperature 98.2 [degF] Keila Chen Other [facility] Other 03-06-2023 11:00-0400 Body weight 102.06 kg Keila Chen Other [facility] Other 03-06-2023 11:00-0400 Respiratory rate 18 /min Keila Chen Other [facility] Other 03-06-2023 11:00-0400 SaO2% (BldA) [Mass fraction] 98 % Keila Chen Other [facility] Other 05-30-2022 16:15-0500 Body height 177.8 cm Wendy Pastor Other [facility] Other 05-30-2022 16:15-0500 Body mass index (BMI) [Ratio] 33.23 kg/m2 Wendy Pastor Other [facility] Other 05-30-2022 16:15-0500 Body temperature 98.7 [degF] Wendy Pastor Other [facility] Other 05-30-2022 16:15-0500 Body weight 105.05 kg Wendy Pastor Other [facility] Other 05-30-2022 16:15-0500 Diastolic blood pressure 78 mm[Hg] Wendy Pastor Other [facility] Other 05-30-2022 16:15-0500 Respiratory rate 18 /min Wendy Pastor Other [facility] Other 05-30-2022 16:15-0500 SaO2% (BldA) [Mass fraction] 98 % Wendy Pastor Other [facility] Other 05-30-2022 16:15-0500 Systolic blood pressure 130 mm[Hg] Wendy Pastor Other [facility] Other 04-18-2022 10:15-0500 Body height 177.8 cm Lydia Conrad Other [facility] Other 04-18-2022 10:15-0500 Body mass index (BMI) [Ratio] 32.57 kg/m2 Lydia Conrad Other [facility] Other 04-18-2022 10:15-0500 Body temperature 98 [degF] Lydia Conrad Other [facility] Other 04-18-2022 10:15-0500 Body weight 102.97 kg Lydia Conrad Other [facility] Other 04-18-2022 10:15-0500 Diastolic blood pressure 88 mm[Hg] Lydia Conrad Other [facility] Other 04-18-2022 10:15-0500 SaO2% (BldA) [Mass fraction] 98 % Lydia Conrad Other [facility] Other 04-18-2022 10:15-0500 Systolic blood pressure 134 mm[Hg] Lydia Conrad Other [facility] Other 11-24-2021 10:20-0400 Body height 177.8 cm Chasidy Matthew Other [facility] Other 11-24-2021 10:20-0400 Body mass index (BMI) [Ratio] 32.28 kg/m2 Chasidy Matthew Other [facility] Other 11-24-2021 10:20-0400 Body temperature 98.4 [degF] Chasidy Matthew Other [facility] Other 11-24-2021 10:20-0400 Body weight 102.06 kg Chasidy Matthew Other [facility] Other 11-24-2021 10:20-0400 Respiratory rate 18 /min Chasidy Matthew Other [facility] Other 11-24-2021 10:20-0400 SaO2% (BldA) [Mass fraction] 98 % Chasidy Matthew Other [facility] Other 02-15-2021 18:05-0400 Body height 177.8 cm Keila Ingram Other [facility] Other 02-15-2021 18:05-0400 Body mass index (BMI) [Ratio] 32.28 kg/m2 Keila Ingram Other [facility] Other 02-15-2021 18:05-0400 Body temperature 97.6 [degF] Keila Ingram Other [facility] Other 02-15-2021 18:05-0400 Body weight 102.06 kg Keila Ingram Other [facility] Other 02-15-2021 18:05-0400 Respiratory rate 16 /min Keila Ingram Other [facility] Other 02-15-2021 18:05-0400 SaO2% (BldA) [Mass fraction] 95 % Keila Ingram Other [facility] Other Encounters Encounter Date Encounter Type Care Provider Facility Start: 05-29-2024 ambulatory Montrell Solanoi ty:CD:[id number] Start: 05-23-2024 End: 05-23-2024 ambulatory NABILA JAVIER Facility:[facility] Start: 05-23-2024 End: 05-23-2024 Patient encounter procedure NABILA E CONCEPCION [facility] Start: 05-22-2024 End: 05-22-2024 ambulatory Melvi Zamudio RN NURSE BANANA HANDLER Start: 05-22-2024 End: 05-22-2024 Patient encounter procedure Melvi Zamudio RN NURSE BANANA HANDLER Comment on above: Clinical Update Start: 05-19-2024 End: 05-19-2024 Emergency department patient visit Richard Ramirez Facility:[facility] Start: 05-19-2024 End: 05-19-2024 ambulatory Montrell Holt Facility:[facility] Start: 04-30-2024 ambulatory NABILA JAVIER Facility :[facility] Start: 04-27-2024 End: 04-27-2024 Emergency department patient visit Jewel Torres Facility:[facility] Start: 04-26-2024 End: 04-26-2024 Emergency department patient visit Mac Wolf Facility:[facility] Start: 04-25-2024 End: 04-25-2024 ambulatory Montrell HOLT Facility:CD:[id number] Start: 04-25-2024 End: 04-25-2024 ambulatory Montrell HOLT Facility:[facility] Start: 04-25-2024 End: 04-25-2024 Patient encounter procedure Montrell HOLT [facility] Start: 04-23-2024 End: 04-23-2024 Emergency department patient visit Abdi Lobo Facility:[facility] Start: 11-08-2023 End: 11-08-2023 ambulatory [facility] Work Phone: Start: 11-08-2023 End: 11-08-2023 Patient encounter procedure [facility] Work Phone: Start: 08-20-2023 End: 08-20-2023 ambulatory DO [facility] Work Phone: Start: 08-20-2023 End: 08-20-2023 Patient encounter procedure DO Nita [facility] Work Phone: Start: 06-07-2023 End: 06-07-2023 ambulatory Wendy Pastor Other [facility] Other Start: 06-07-2023 Telephone encounter Wendy Barlow [facility] Start: 06-06-2023 End: 06-06-2023 Patient encounter procedure DO [facility] Work Phone: Start: 06-06-2023 End: 06-06-2023 ambulatory DO [facility] Work Phone: Start: 06-06-2023 Encounter for genera l adult medical examination without abnormal findings Wendy Pastor [facility] Start: 06-05-2023 End: 06-05-2023 Patient encounter procedure DO Nita [facility] Work Phone: Start: 03-06-2023 End: 03-06-2023 ambulatory Keila Chen Other [facility] Other Start: 03-06-2023 Office outpatient vi sit 15 minutes Keila Chen [facility] [address] Start: 06-11-2022 End: 06-11-2022 ambulatory Wendy Pastor Other [facility] Other Start: 06-11-2022 Telephone encounter Wendy Barlow [facility] Start: 05-30-2022 End: 05-30-2022 ambulatory Wendy Pastor Other [facility] Other Start: 05-30-2022 Encounter for genera l adult medical examination without abnormal findings Wendy Pastor [facility] Start: 05-30-2022 [facility] visit new patient Wendy hillman [facility] Start: 05-30-2022 Patient encounter procedure Wendy Pastor [facility] Start: 05-03-2022 End: 05-03-2022 ambulatory Wendy Pastor Other [facility] Other Start: 05-03-2022 Telephone encounter Wendy Barlow [facility] Start: 04-18-2022 End: 04-18-2022 ambulatory Lydia Martines Other [facility] Other Start: 04-18-2022 Office outpatient vi sit 15 minutes Lydiara Martines [facility] Start: 04-02-2022 End: 04-02-2022 ambulatory Chasidy Matthew Other [facility] Other Start: 04-02-2022 Telephone encounter Chasidy Matthew [facility] [address] Start: 11-24-2021 End: 11-24-2021 ambulatory Chasidy Matthew Other [facility] Other Start: 11-24-2021 Office outpatient vi sit 25 minutes Chasidy Matthew [facility] [address] Start: 11-24-2021 Telephone encounter Wendy Barlow [facility] Start: 02-15-2021 Office outpatient vi sit 15 minutes Keila Ingram [facility] [address] Procedures Date Procedure Procedure Detail Performing Clinician Arthritis (disorder) Montrell HOLT Plan of Treatment Date Care Activity Detail Author Start: 2026 RSV Vaccine (1 - 1-d ose 75+ series) RSV Vaccine (1 - 1-dose 75+ series) [facility] Start: 05-26-2024 End: 05-26-2024 Patient encounter procedure 05/26/2024 10:30 AM EST Office Visit Urology [id number] [facility] [place] [address] Сергей Rico PA-C [address] [place], [place] [id number] [facility] Comment on above: [facility] Start: 05-21-2024 Advance Directive Discussion Advance Directive Discussion [facility] Start: 01-20-2024 Covid-19 Vaccine ( season) Covid-19 Vaccine ( season) [facility] Start: 01-20-2024 Influenza vaccination Influenza Vacc ine (#1) [facility] Start: 2001 Pneumococcal Vaccine : 50+ (1 of 1 - PCV) Pneumococcal Vaccine: 50+ (1 of 1 - PCV) [facility] Start: 2001 Shingrix Vaccine (1 of 2) Shingrix Vaccine (1 of 2) [facility] Start: 1996 Diabetes Screening Diabetes Screenin g [facility] Start: 1996 Screening for malign ant neoplasm of colon [facility] Start: 1986 Lipid panel Lipid Screening [facility] Start: 1970 Urine microalbumin profile DTaP,Tdap,Td Vaccine (1 - Tdap) [facility] Start: 1969 Anxiety Screening Anxiety Screening [facility] Start: 1969 Depression Screening Depression Scre ening [facility] Start: 1969 Hepatitis C screening Hepatitis C Sc emerson [facility] Glucose measurement estimated from glycated hemoglobin [facility] Immunizations Immunization Date Immunization Notes Care Provider Fa ed 06-05-2023 influenza virus vaccine, unspecified formulation DO Nita Hernandez [facility] 06-05-2023 Prevnar 20 Wendyshawn Pastor Other [facility] 06-05-2023 influenza, high dose seasonal, preservative-free Wendy Pastor Other [facility] Other 05-30-2022 influenza, high dose seasonal, preservative-free Wendy Pastor Other [facility] Other 05-30-2022 influenza virus vaccine, unspecified formulation DO [facility] 08-22-2020 COVID-19 Vaccine Pfi zer - Documentation Purposes Only Wendy Pastor Other [facility] Comment on above: Result Comment: 2023: [id number] 07-31-2020 COVID-19 Vaccine Pfi zer - Documentation Purposes Only Wendy Pastor Other [facility] Comment on above: Result Comment: 2023: [id number] 02-05-2020 Toradol per 15 mg Calley Ethan gabo Other [facility] Other 10-16-2019 Toradol per 15 mg Calley Ethan gabo Other [facility] Other 01-14-2019 Toradol per 15 mg Calley Ethan gabo Other [facility] Other 09-08-2016 Toradol per 15 mg Calley Ethan gabo Other [facility] Other 03-20-2014 influenza, injectabl e, quadrivalent, preservative free Phumariano Ingram Other [facility] Other 03-20-2014 influenza, injectabl e, quadrivalent, contains preservative DO [facility] 07-17-2013 pneumococcal polysaccharide vaccine, 23 valent Keila Ingram Other [facility] 07-17-2013 tetanus toxoid, redu flori diphtheria toxoid, and acellular pertussis vaccine, adsorbed Keila Nataly Other [facility] Other 07-17-2013 tetanus and diphther ia toxoids, adsorbed, preservative free, for adult use (2 Lf of tetanus toxoid and 2 Lf of diphtheria toxoid) Montrell SARA [facility] 07-17-2013 tetanus and diphther ia toxoids, adsorbed, preservative free, for adult use (5 Lf of tetanus toxoid and 2 Lf of diphtheria toxoid) DO [facility] Payers Date Payer Category Payer Medicare DEVOTED MEDICARE [facility] PPO [id number] 2024-Present [phone] [address] [place] [address] PPO [id number] 2023 Self-pay [id number] 2023 Unknown [id number] 2023 Medicare [id number] 1950 Unknown [id number] 1950 Unknown [id number] 1950 Unknown [id number] Medicare [id number] Medicare Medicare Nonpatient [id number] [id number] Unknown [id number] Unknown [place] BC/BS [id number] Unknown [id number] Unknown [id number] Unknown [id number] Unknown [id number] Unknown [id number] Unknown [id number] Social History Date Type Detail Facility Unknown if ever smoked [facility] Other Sex Assigned At [facility] Start: 09-26-2020 End: 09-26-2020 Tobacco smoking status NHIS Ex-smoker (finding) [facility] Start: 1950 Sex Assigned At Male [facility] Start: 04-25-2024 Tobacco smoking status Never smoked tobacco (finding) [facility] Tobacco smoking status Never [facility] Tobacco smoking status MIIS Tobacco smoking consumption unknown [facility] Start: 1950 Sex assigned at Not on file [facility] Functional Status Date Assessment Result Facility 04-25-2024 Functional Status N/A [facility] Clinical Notes 01-19-2018 to 05-22-2024 Telephone Encounter - Melvi Zamudio RN - 05/22/2024 11:06 AM ESTTelephone Encounter - Melvi Zamudio RN - 05/22/2024 11:06 AM EST Note Date & Type Note Facility 05-22-2024 Telephone encount er Note Patient calling with request for appointment. Patient denies any new or worsening symptoms of which a provider is not aware: Yes. Patient states he was diagnosed with a 7 mm kidney stone. He had surgery and since the procedure he has been to ER multiple times. States he continues to have pain, and would like to see a doctor here at [facility]. Conferenced to the Appointment Center for scheduling with urology. GO TO THE EMERGENCY ROOM OR CALL 911 IF: * You develop any new symptoms * Your condition worsens * You are concerned or anxious about your condition for any other reason. If you have any questions, you can call Nurse emergency vehicle operations instructor back. TA [facility] 05-22-2024 Miscellaneous Notes Formattin g of this note might be different from the original. Patient calling with request for appointment. Patient denies any new or worsening symptoms of which a provider is not aware: Yes. Patient states he was diagnosed with a 7 mm kidney stone. He had surgery and since the procedure he has been to ER multiple times. States he continues to have pain, and would like to see a doctor here at [facility]. Conferenced to the Appointment Center for scheduling with urology. GO TO THE EMERGENCY ROOM OR CALL 911 IF: * You develop any new symptoms * Your condition worsens * You are concerned or anxious about your condition for any other reason. If you have any questions, you can call Nurse emergency vehicle operations instructor back. documented in this encounter [facility] 04-25-2024 Hospital Discharg e instructions Patient Education 04/25/2024 10:00:46 ESWL for Kidney Stones ESWL for Kidney Stones Extracorporeal shock wave lithotripsy (ESWL) is a treatment that can help break up kidney stones that are too large to pass on their own. This is a nonsurgical procedure that breaks up a kidney stone with shock waves. These shock waves pass through your body and focus on the kidney stone. They cause the kidney stone to break into smaller pieces (fragments) while it is still in the urinary tract. The fragments of stone can pass more easily out of your body in the urine. Tell a health care provider about: Any allergies you have. All medicines you are taking, including vitamins, herbs, eye drops, creams, and ptxp-wlu-bnhzjqi medicines. Any problems you or family members have had with anesthetic medicines. Any bleeding problems you have. Any surgeries you have had. Any medical conditions you have. Whether you are or may be . What are the risks? Your health care provider will talk with you about risks. These may include: Infection. Bleeding from the kidney. Bruising of the kidney or skin. Scarring of the kidney. This can lead to: ?Increased blood pressure. ?Poor kidney function. ?Return (recurrence) of kidney stones. Damage to other structures or organs. This may include the liver, colon, spleen, or pancreas. Blockage (obstruction) of the tube that carries urine from the kidney to the bladder (ureter). Failure of the kidney stone to break into fragments. What happens before the procedure? When to stop eating and drinking Follow instructions from your health care provider about what you may eat and drink. These may include: 8 hours before your procedure ?Stop eating most foods. Do not eat meat, fried foods, or fatty foods. ?Eat only light foods, such as toast or crackers. ?All liquids are okay except energy drinks and alcohol. 6 hours before your procedure ?Stop eating. ?Drink only clear liquids, such as water, clear fruit juice, black coffee, plain tea, and sports drinks. ?Do not drink energy drinks or alcohol. 2 hours before your procedure ?Stop drinking all liquids. ?You may be allowed to take medicines with small sips of water. If you do not follow your health care provider's instructions, your procedure may be delayed or canceled. Medicines Ask your health care provider about: Changing or stopping your regular medicines. These include any diabetes medicines or blood thinners you take. Taking medicines such as aspirin and ibuprofen. These medicines can thin your blood. Do not take them unless your health care provider tells you to. Taking xppi-rth-xdiktrd medicines, vitamins, herbs, and supplements. Tests You may have tests, such as: Blood tests. Urine tests. Imaging tests. This may include a CT scan. Surgery safety Ask your health care provider: How your surgery site will be marked. What steps will be taken to help prevent infection. These steps may include: ?Washing skin with a soap that kills germs. ?Receiving antibiotics. General instructions If you will be going home right after the procedure, plan to have a responsible adult: ?Take you home from the hospital or clinic. You will not be allowed to drive. ?Care for you for the time you are told. What happens during the procedure? An IV will be inserted into one of your veins. You may be given: ?A sedative. This helps you relax. ?Anesthesia. This will: ?Numb certain areas of your body. ?Make you fall asleep for surgery. A water-filled cushion may be placed behind your kidney or on your abdomen. In some cases, you may be placed in a tub of lukewarm water. Your body will be positioned in a way that makes it easier to target the kidney stone. An X-ray or ultrasound exam will be done to locate your stone. Shock waves will be aimed at the stone. If you are awake, you may feel a tapping sensation as the shock waves pass through your body. A small mesh tube (stent) may be placed in your ureter. This will help keep urine flowing from the kidney if the fragments of the stone have been blocking the ureter. The stent will be removed at a later time by your health care provider. The procedure may vary among health care providers and hospitals. What happens after the procedure? Your blood pressure, heart rate, breathing rate, and blood oxygen level will be monitored until you leave the hospital or clinic. You may have an X-ray after the procedure to see how many of the kidney stones were broken up. This will also show how much of the stone has passed. If there are still large fragments after treatment, you may need to have a second procedure at a later time. This information is not intended to replace advice given to you by your health care provider. Make sure you discuss any questions you have with your health care provider. Document Revised: 09/07/2022 Document Reviewed: 09/07/2022 [employer] Patient Education 2023 [employer]. Follow Up Care 04/23/2024 11:37:15 With:SARA MUNSON, Montrell Awad, URL Address: [address] [place], [place] [id number]- When: Unknown [facility] 04-25-2024 Note Patient Education Nephrology ESWL for Kidney Stones Extracorporeal shock wave lithotripsy (ESWL) is a treatment that can help break up kidney stones that are too large to pass on their own. This is a nonsurgical procedure that breaks up a kidney stone with shock waves. These shock waves pass through your body and focus on the kidney stone. They cause the kidney stone to break into smaller pieces (fragments) while it is still in the urinary tract. The fragments of stone can pass more easily out of your body in the urine. Tell a health care provider about: ??? Any allergies you have. ??? All medicines you are taking, including vitamins, herbs, eye drops, creams, and wvfi-ida-gqbnpfu medicines. ??? Any problems you or family members have had with anesthetic medicines. ??? Any bleeding problems you have. ??? Any surgeries you have had. ??? Any medical conditions you have. ??? Whether you are or may be . What are the risks? Your health care provider will talk with you about risks. These may include: ??? Infection. ??? Bleeding from the kidney. ??? Bruising of the kidney or skin. ??? Scarring of the kidney. This can lead to: ? Increased blood pressure. ? Poor kidney function. ? Return (recurrence) of kidney stones. ??? Damage to other structures or organs. This may include the liver, colon, spleen, or pancreas. ??? Blockage (obstruction) of the tube that carries urine from the kidney to the bladder (ureter). ??? Failure of the kidney stone to break into fragments. What happens before the procedure? When to stop eating and drinking Follow instructions from your health care provider about what you may eat and drink. These may include: ??? 8 hours before your procedure ? Stop eating most foods. Do not eat meat, fried foods, or fatty foods. ? Eat only light foods, such as toast or crackers. ? All liquids are okay except energy drinks and alcohol. ??? 6 hours before your procedure ? Stop eating. ? Drink only clear liquids, such as water, clear fruit juice, black coffee, plain tea, and sports drinks. ? Do not drink energy drinks or alcohol. ??? 2 hours before your procedure ? Stop drinking all liquids. ? You may be allowed to take medicines with small sips of water. If you do not follow your health care provider's instructions, your procedure may be delayed or canceled. Medicines Ask your health care provider about: ??? Changing or stopping your regular medicines. These include any diabetes medicines or blood thinners you take. ??? Taking medicines such as aspirin and ibuprofen. These medicines can thin your blood. Do not take them unless your health care provider tells you to. ??? Taking fhmx-amt-numnili medicines, vitamins, herbs, and supplements. Tests You may have tests, such as: ??? Blood tests. ??? Urine tests. ??? Imaging tests. This may include a CT scan. Surgery safety Ask your health care provider: ??? How your surgery site will be marked. ??? What steps will be taken to help prevent infection. These steps may include: ? Washing skin with a soap that kills germs. ? Receiving antibiotics. General instructions ??? If you will be going home right after the procedure, plan to have a responsible adult: ? Take you home from the hospital or clinic. You will not be allowed to drive. ? Care for you for the time you are told. What happens during the procedure? An IV will be inserted into one of your veins. ??? You may be given: ? A sedative. This helps you relax. ? Anesthesia. This will: ? Numb certain areas of your body. ? Make you fall asleep for surgery. ??? A water-filled cushion may be placed behind your kidney or on your abdomen. In some cases, you may be placed in a tub of lukewarm water. ??? Your body will be positioned in a way that makes it easier to target the kidney stone. ??? An X-ray or ultrasound exam will be done to locate your stone. ??? Shock waves will be aimed at the stone. If you are awake, you may feel a tapping sensation as the shock waves pass through your body. ??? A small mesh tube (stent) may be placed in your ureter. This will help keep urine flowing from the kidney if the fragments of the stone have been blocking the ureter. The stent will be removed at a later time by your health care provider. The procedure may vary among health care providers and hospitals. What happens after the procedure? Your blood pressure, heart rate, breathing rate, and blood oxygen level will be monitored until you leave the hospital or clinic. ??? You may have an X-ray after the procedure to see how many of the kidney stones were broken up. This will also show how much of the stone has passed. If there are still large fragments after treatment, you may need to have a second procedure at a later time. This information is not intended to replace advice given to you b (more content not included)... [facility] 03-06-2023 Evaluation note Encounter Date Diagnosis Assessment Notes Feb, Cough (ICD-10 - R05.9) covid neg, see above. Feb, Acute bronchitis, unspecified organism (ICD-10 - J20.9) abx and steroid as directed with food. Pt is to use inhaler as prescribed prn for cough and wheeze. Supportive care as directed. Push fluids and rest. Pt denied work note today. Pt is to take otc antipyretic prn for fever and aches. Pt is to take rx cough suppressant prn for cough. Pt is to be re-evaluated after tx if sx worsen or don't improve by pcp or UC. Discussed sx of resp distress - wheeze, sob, difficulty breathing and swallowing, chest tightness, or chest pain. Pt is to f/u immediately in ER if these sx present. Pt is to call the office with any questions or concerns regarding dx and tx. Pt understood and agreed to tx plan. [facility] Other 01-10-2023 Evaluation note* Encounter Date Diagnosis Assessment Notes Treatment Notes Treatment Clinical Notes May, Medicare annual wellness visit, initial (ICD-10 - Z00.00) Personalized health advice was given to the beneficiary with a referral, if appropriate, to health education of preventative counseling services or programs aimed at reducing identified risk factors and improving self-management or community-based lifestyle interventions to reduce health risks and promote self-management and wellness, including weight loss, physical activity, smoking cessation, fall prevention, and nutrition. A written plan for screenings discussed, including colonoscopy, mammography, flu shots, routine lab studies, eye exams, glaucoma screening, skin checks, risk factors for medical problems discussed, including BP control, obesity, and need for consistent exercise. Advanced care planning reviewed. Counseling was provided here today - specifically in regard to any positively answered questions as noted above. May, Laboratory exam ordered as part of routine general medical examination (ICD-10 - Z00.00) May, Screening for malignant neoplasm of colon (ICD-10 - Z12.11) Discussed colorectal cancer screening options with patient. All questions answered and recommendations reviewed. Will proceed with cologard screening. He/she is aware that if positive, they will need a colonoscopy. [facility] Other 11-29-2022 Evaluation note* Encounter Date Diagnosis Assessment Notes Treatment Notes Treatment Clinical Notes Mar, Sore throat (ICD-10 - J02.9) Strep test was negative. He as educated on supportive care such as increasing fluids, good hand washing and OTC medication for symptoms relief. He will follow up if symptoms worsen or do not resolve. Mar, Congestion of nasal sinus (ICD-10 - R09.81) [facility] Other 07-07-2022 Evaluation note* Encounter Date Diagnosis Assessment Notes Treatment Notes Treatment Clinical Notes Nov, Cough (ICD-10 - R05.9) Nov, COVID-19 (ICD-10 - U07.1) Rapid COVID test performed in office today. Advised patient that test was positive. Instructed patient to isolate per CDC guidelines for 5 days from symptom onset, wear mask following 5 days. May return to work/activities outside home after isolation period as long as symptoms are improving and has been afebrile for 24 hours without use of antipyretic. Advised patient that treatment of COVID is with viral supportive care, OTC cold medications as directed, Tylenol/Motrin as needed for body aches/fever. Increase fluids and rest. Encouraged use of cool mist humidifier. Follow-up with PCP to advise of positive result and further management. Immediate eval for SOB, difficulty, chest pain, fevers that do not break with antipyretic or any other concerning symptoms as reviewed on patient education handout. Patient verbalizes understanding and is agreeable to treatment plan. Patient left in stable condition [facility] Other 09-28-2021 Evaluation note* Encounter Date Diagnosis Assessment Notes Treatment Notes Treatment Clinical Notes Jan, Contact with and (suspected) exposure to other viral communicable diseases (ICD-10 - Z20.828) rapid covid test neg, see above. Jan, Viral URI (ICD-10 - J06.9) Informed pt that covid test was negative. Will treat as viral at this time based on PE findings. Therefore, no abx is indicated for tx. Supportive care as directed. Rest and push fluids. Pt denied work note. Pt to take otc antipyretic prn for fever and aches. If coughing patient may take otc cough medicine. [place] diet and avoid spicy/greasy/dairy food. Pt to f/u with pcp as needed for persistent or recurrent sx. Pt understood and agreed to treatment plan. Jan, Other Additional time spent conducting pre-visit phone call, screening for symptoms, instructions on social distancing, application and removal of PPE, and cleaning of examination room, equipment and supplies was preformed. Patient education given for testing methodology and results. Patient care instructions given in writting by [facility] document. [facility] Other 09-01-2018 History general Narrative - Reported* Type Description Date Medical History [place] (wears hearing aides) Medical History H/o renal stones Medical History Shingles 01/2018 Surgical History lithotripsy 10/2013 Surgical History left uretral stent 10/2013 Surgical History T & A Surgical History Vasectomy 1975 Hospitalization History PROSTATE INFECTION Hospitalization History kidney stones [facility] Other 09-01-2018 History general Narrative - Reported* Type Description Date Medical History [place] (wears hearing aides) Medical History H/o renal stones Medical History Shingles 01/2018 Medical History glaucoma Surgical History lithotripsy 10/2013 Surgical History left uretral stent 10/2013 Surgical History T & A Surgical History Vasectomy 1975 Hospitalization History PROSTATE INFECTION Hospitalization History kidney stones [facility] Other 09-01-2018 History general Narrative - Reported* Type Description Date Medical History [place] (wears hearing aides) Medical History H/o renal stones Medical History Shingles 01/2018 Medical History glaucoma Surgical History lithotripsy 10/2013 Surgical History left uretral stent 10/2013 Surgical History T & A Surgical History Vasectomy 1976 Surgical History cataract 2022 Hospitalization History PROSTATE INFECTION Hospitalization History kidney stones [facility] Other Evaluation + Plan note No data available for this section [facility] noteNo InformationNort [employer] Other Evaluation noteNo assessment information available [facility] Work Phone: Evaluation note* Diagnosis Onset Date Resolution Status Abscess noneactive Dermatitis noneactive [facility] Work Phone: Hospital Discharge instructions No data available for this section [facility] Renita Progress note No data available for this section [facility] Isai Advance Directives No Advanced Directives Records Found Advance Directive Response Recorded Date/ Time Advance Directives No August 06 9:36am Advance Directive Response Recorded Date/ Time Advance Directives No August 06 10:36am Chief Complaint and Reason for Visit Chief Complaint Sawv Z00.00 E78.00 E55.9 bump on skin Chief Complaint bump on skin cough, congestion Reason for Visit Abscess Dermatitis Family History No Family History Records Found Relationship Condition Age at Onset Recorded Date/T manna father Malignant melanoma Unknown Unknown Malignant neoplasm Unknown Not Specified Unknown Summary Purpose Additional Source Comments REASON FOR VISIT (unrecogniz ed section and content) Reason Comments Clinical Update Care Teams (unrecognized sec tion and content) Team Status: Active Member Role Status Dates Nita Hernandez DO Primary Care Provider Active Team Status: Inactive Member Role Status Dates Nita Hernandez DO Primary Care Provider Active Start: June 06, 2023 End: June 06, 2023 Wendy Pastor DO Attending Provider Active Start: June 06, 2023 End: June 06, 2023 Team Status: Inactive Member Role Status Dates Wendy Pastor DO Attending Provider Active Start: June 05, 2023 End: June 05, 2023 Team Status: Inactive Member Role Status Dates Nita Hernandez DO Primary Care Provider Active Start: August 20, 2023 End: August 20, 2023 Flor Quijano APRN Attending Provider Active Sta rt: August 20, 2023 End: August 20, 2023 Team Status: Inactive Member Role Status Dates Nita Hernandez DO Primary Care Provider Active Start: November 08, 2023 End: November 08, 2023 Chasidy Matthew APRN Attending Provider Active Start: November 08, 2023 End: November 08, 2023 Goals (unrecognized section and content) Goals may be documented in a n alternate section Source Comments (unrecognize d section and content) In the event this informatio n is protected by the [facility] Confidentiality of Alcohol and Drug Abuse Patient Records regulations: The Federal rules restrict any use of the information to criminally investigate or prosecute any alcohol or drug abuse patient.[facility] (unrecognized sect ion and content) No Status Records FoundNo Status Records Found INFORMATION SOURCE (unrecogn ized section and content) DATE CREATED AUTHOR 05/31/2024 [facility] DATE CREATED AUTHOR AUTHOR'S CARLOS ATION 06/01/2024 [facility] FOR RECORDS PERTAINING TO PATIENTS WHO ARE OR HAVE BEEN ENROLLED IN A CHEMICAL DEPENDENCY/SUBSTANCEABUSE PROGRAM, SOME INFORMATION MAY BE OMITTED. This clinical summary was aggregated from multiple sources. Caution should be exercised in using it in the provision of clinical care. This summary normalizes information from multiple sources, and as a consequence, information in this document may materially change the coding, format and clinical context of patient data. In addition, data may be omitted in some cases. CLINICAL DECISIONS SHOULD BE BASED ON THE PRIMARY CLINICAL RECORDS. [employer] provides no warranty or guarantee of the accuracy or completeness of information in this document.
[2024-06-05] MEDS: LACTATED RINGER'S SOLUTION 1,000 ML 50 ML IV ×2 (09:17→11:51)
[2024-06-05] MEDS: CEFAZOLIN SODIUM 2 GM/50 ML D5W PREMIX IV (11:12)
--- NOTE | 2024-06-05 11:56 | P.URON_ITS ---
Urology Surgery Operative Note Operative Note Procedure Date: 06/05/24 Time Out Performed: yes Pre-op Diagnosis: Right nephrolithiasis; status post right ESWL and stent placement Post-op Diagnosis: same as pre-op Procedures performed: 1. Cystoscopy. 2. Right stent removal. 3. Right ureteroscopy. 4. Right pyeloscopy. 5. Thulium laser lithotripsy of right renal calculi. Anesthesia: General-LMA Primary Surgeon: Montrell Holt Complications: None Estimated blood loss (mL): 5 Findings: Right renal calculi Specimens: None Drains: None Indications for Procedures: This gentleman had a 7 mm right UPJ calculus for which he underwent right ESWL and right stent placement. He now presents for ureteroscopy, laser lithotripsy of retained fragments and stent removal. He has signed an informed consent after risks were explained. Detailed description of Procedure: The patient was brought to the operating room and placed on the operating room table in the supine position. SCDs were placed on the lower extremities and turned on and functioning during the entire case. Timeout was done by all pa rties in the room. We all agreed upon the patient's identification and the planned procedures for this patient. Genn. anesthesia was then administered. The patient was then repositioned into the modified dorsal lithotomy position. All pressure points were satisfactorily padded. Genitalia were sterilely prepped and draped in usual fashion. I started by passing a 22 [place] Olympus cystoscope per urethra and into the bladder. The stent was mildly encrusted. A flexible grasping forceps and grasped the end of the stent and the stent was then removed. I then repassed the scope in the bladder and then slid a Glidewire through the scope up the right ureter into the kidney. The scope was removed. I then passed a 10/12 [place] ureteral access sheath over the wire and up to the L5 position. Stylette and wire were then removed. I then passed a flexible ureteroscope through this sheath up into the ureter. I then ascended up the ureter and went into the kidney. I scoped into the upper mid and lower pole calyceal segments. There was stone within the midpole segment. I then passed a 270 Angstrom laser fiber through the scope and used the thulium laser at 7 W continuously under the dusting mode. I was able to entirely dust the 4 mm stone remaining. There were a few other tiny stones which were also dusted. No other stones were visible. The procedure was then terminated. The ureteroscope was removed. The access sheath was removed. The cystoscope was passed back in the bladder and it was drained of its contents and then the scope was removed. He was then [facility] and wheeled to PACU in stable condition.
--- NOTE | 2024-06-05 13:46 | PC.NURSE ---
Denies urge to void
--- NOTE | 2024-06-05 14:17 | PC.NURSE ---
Up to bathroom and void clear marta urine without difficulty
== END 2024-06-05 14:21 | disposition home or self-care (01) ==
PROVIDERS: Visit Provider Urology
PROC: (CPT 918; principal; 2024-06-05 10:20)
DX: N20.0 Calculus of kidney (principal)
CPT/HCPCS: 52353; 76000; J0690; J1100; J1885; J2250; J2371; J2405; J2704; J3010

== ENCOUNTER 2024-12-06 10:32 | Outpatient (OUT) | payer OTHER, SELFPAY ==
--- NOTE | 2024-12-06 | XR_ITS ---
The [address] [address] Patient Name: RAQUEL RANDOLPH MRN: [id number] date: 1950 Sex: M Assigned Patient Location: RAD Current Patient Location: [facility] Accession/Order Number: [id number] Exam Date: 12/06/2024 14:19 Report Date: 12/06/2024 14:20 At the request of: STARR RUIZ MD Procedure: XR abdomen 1V Single view abdomen INDICATION: Kidney stone COMPARISON: 04/25/2024 FINDINGS: No definite radiopaque calculi overlying the renal shadows or the psoas musculature. Previously noted possible right-sided calculus is not reproduced. Otherwise nonspecific bowel gas pattern as partially visualized. Degenerative changes lumbar spine and hips. XR/XR abdomen 1V IMPRESSION: Previously noted calculus is not identified. Impression dictated by: Siva Hall M.D. 12/06/2024 2:20 PM Dictation Location: [place] [address] Electronically authenticated by: [id number] Y Date: 12/06/2024 14:20
--- OUTSIDE RECORDS SUMMARY | 2024-12-06 10:37 | XMS_ITS | CCD ---
Author Organization [facility] Inform ion Partnership [facility] Care Team Providers Care Hot Water Heater Installer Name Role Phone Keila Ingram Unavailable Chasidy Matthew Unavailable Wendy Pastor Unavailable Lydia Martines Unavailable Keila Chen Unavailable DO Nita Hernandez Primary Care Provider DO Wendy Khanna Attending Provider DO Nita Hernandez Primary Care Provider DO Wendy Khanna Attending Provider [phone] JEWEL TORRES Primary Care Physician Unavailable Primary Care Provider UnavailRichard Fitzpatrick Admitting Unavailable Richard Ramirez Attending Unavailable Wendy Pastor Primary Care Unavailable Abdi Lobo Attending Unavailable Jewel Torres Primary Care Unavailable Abdi Lobo Admitting Unavailable Montrell Holt Attending Unavailable Jewel Torres Primary Care Unavailable Montrell Holt Admitting Unavailable Mac Wolf Admitting Unavailable Mac Wolf Attending Unavailable Jewel Torres Primary Care Unavailable Amandeep Harris Admitting Unavailable Amandeep Harris Attending Unavailable Jewel Torres Primary Care Unavailable Montrell HOLT Attending Unavailable Montrell HOLT Attending Unavailable Montrell HOLT Referring Unavailable Montrell HOLT Attending Unavailable NABILA JAVIER Attending Unavailable Montrell HOLT Attending Unavailable Montrell HOLT Attending Unavailable Montrell HOLT Attending Unavailable Montrell HOLT Attending Unavailable Montrell HOLT Admitting Unavailable Medications Current Medications Medication Drug Class(es) Dates Sig (Normalized) Sig (Original) [id number] 200 actuat albuterol 0.09 mg/actuat metered dose [...] Start: 03-06-2023 take 1 capsule by mo [facility] every eight hours Benzonatate 200 MG 1 capsule Orally Three times a day for 10 Feb, Active ergocalciferol 1.25 mg oral capsule (1 source) Provitamin D2 Compound Start: 06-12-2023 take 1 capsule by mouth every week Ergocalciferol 54267 UNIT 1 capsule Orally Weekly for 90 days May, Active latanoprost 0.05 mg/ml ophthalmic solution (5 sources) Prostaglandin Analog Start: 04-25-2024 latanoprost Opth [...] Active oxybutynin chloride 5 mg oral tablet (3 sources) Cholinergic Muscarinic Antagonist Start: 05-23-2024 take 1 tablet by mouth twice daily as needed oxybutynin 5 mg Tab 5 mg = 1 tab(s), Oral, BID, PRN for urinary discomfort, # 30 tab(s), Refills(s) 0, Pharmacy: [facility] #[facility], 178, cm, 04/25/24 9:34:00 EST, Height/Length [...] Active tamsulosin hydrochloride 0.4 mg oral capsule (5 sources) alpha-Adrenergic Derrick Start: 05-26-2024 take 1 capsule by mouth twice daily tamsulosin 0.4 mg Cap 0.4 mg = 1 cap(s), Oral, BID, # 60 cap(s), Refills(s) 0, Pharmacy: [facility] #[facility], 178, cm, 04/25/24 9:34:00 EST, Height/Length Dosing, 101.5, kg, 04/25/24 9:34:00 EST, Weight Dosing Start Date: 05/26/24 Status: Ordered Start: 05-23-2024 take 1 capsule by [facility] once daily tamsulosin 0.4 mg Cap 0.4 mg = 1 cap(s), Oral, Daily, # 14 cap(s), Refills(s) 1, Pharmacy: [facility] #24, 178, cm, 04/25/24 9:34:00 EST, Height/Length Dosing, 101.5, kg, 04/25/24 9:34:00 EST, Weight Dosing Start Date: 05/23/24 Status: Ordered vibegron 75 MG Oral Tablet [Gemtesa] (3 sources) Start: 05-23-2024 End: 06-20-2024 take 1 tablet by mouth once daily Gemtesa 75 mg oral tablet 75 mg = 1 tab(s), Oral, Daily, X 14 day(s), # 14 tab(s), Refills(s) 1, Pharmacy: [facility] #[facility], 178, cm, 04/25/24 9:34:00 EST, Height/Length [...] Problem Date Documented Date Episodic/Chronic Abdominal pain (2 sources) Unspecified abdominal pain; Translations: [Right lower quadrant pain] Onset: 04-23-2024 Episodic Acute bronchitis (1 source) Acute bronchitis, unspecified Episodic Allergic reactions (1 source) Dermatitis, unspecified; Translations: [Contact dermatitis and other eczema, unspecified cause] 08-20-2023 Episodic Calculus of urinary tract (7 sources) Kidney stone; Translations: [Calculus of kidney] Onset: 04-25-2024 Episodic Disorders of lipid metabolism (10 sources) Hypercholesterolemia; Translations: [Pure hypercholesterolemia, unspecified] Chronic Genitourinary symptoms and ill-defined conditions (1 source) 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; Translations: [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] Onset: 04-27-2024 Chronic Genitourinary symptoms and ill-defined conditions (2 sources) Sensation as if bladder still full; Translations: [Feeling of incomplete bladder emptying] Onset: 04-26-2024 Episodic Nutritional deficiencies (10 sources) Vitamin D deficiency; Translations: [Vitamin D deficiency, unspecified] Chronic Open wounds of extremities (3 sources) [...] abscess of unspecified sites] 08-20-2023 Episodic Unclassified (4 sources) Obstructive hydronephrosis 04-25-2024 Past or Other [...] Test Name Value Interpretation Reference Range Facility Calculus Analysison 06-23-19 25 Calcium oxalate monohydrate (Stone) [Mass fraction] 100 % Invalid Interpretation Code [facility] Comment on above: Performed By: #### 1 [id number] #### [facility] Laboratory [address] [place] [address] Color (Stone) Brown Invalid Interpretation Code [facility] Comment on above: Performed By: #### 1 [id number] #### [facility] [address] [place] [address] Composition Comment Invalid Interpretation Code [facility] Comment on above: Result Comment: Perc entage (Represents the % composition) Performed By: #### 1 [id number] #### [facility] [address] [place] [address] Disclaimer: Comment Invalid Interpretation Code [facility] Comment on above: Result Comment: This test was developed and its performance characteristics determined by [facility]. It has not been cleared or approved by the Food and Drug Administration. Performed at: [facility] [address] [place], [place] [id number] PhD Martin Soares Performed By: #### 1 [id number] #### [facility] [address] [place] [address] Laboratory comment Jaleel (Report) Comment Invalid Interpretation Code [facility] Comment on above: Result Comment: Josh crane questions regarding Calculi Analysis [facility] at: [phone]. Performed By: #### 1 [id number] #### [facility] [address] [place] [address] Please Note: Comment Invalid Interpretation Code [facility] Comment on above: Result Comment: Calc evelyn report will follow via computer, mail or personal trainer delivery. Performed By: #### 1 [id number] #### [facility] [address] [place] [address] Size (Stone) [Entitic vol] 6x3 Invalid Interpretation Code [facility] Comment on above: Result Comment: Sing le piece received. Performed By: #### 1 [id number] #### [facility] [address] [place] [address] Specimen source subject Nom Comment Invalid Interpretation Code [facility] Comment on above: Result Comment: Not provided Performed By: #### 1 [id number] #### [facility] [address] [place] [address] Stone Photo Comment Invalid Interpretation Code [facility] Comment on above: Result Comment: Phot ograph will follow under a separate cover Performed By: #### 1 [id number] #### [facility] [address] [place] [address] Weight (Stone) 56 mg Invalid Interpretation Code [facility] Comment on above: Performed By: #### 1 [id number] #### [facility] [address] [place] [address] XR KUBon 05-20-2024 XR KUB [facility] Main [address] [address] XRay Report Signed Patient: Raquel Randolph MR#: [id number] 08 : 1950 Acct:[id number] Age/Sex: 74 / M ADM Date: 05/19/24 Loc: XD Room: Type: [facility] Attending Dr: Montrell Holt MD Copies to: [...] Eliseo Flores M.D.05/20/2024 12:55 AM Dictation Location: [place] [address] Transcribed By: [facility] 05/20/2454 Dictated By: Eliseo Flores II, MD 05/20/2450 Signed By: 05/20/2454 Normal [facility] Basic Metabolic Panelon 04-22 Anion gap [Moles/Vol] 14.0 mmol/L Normal 6.0-15.0 [facility] Comment on above: Performed By: #### B MP, CBC, HEPATIC, LIPASE #### [facility] [address] [place] [address] [place] Calcium [Mass/Vol] 9.2 mg/dL Normal 8.6-10.[address] [facility] Comment on above: Performed By: #### B MP, CBC, HEPATIC, LIPASE #### [facility] [address] [place] [id number] [place] Chloride [Moles/Vol] 104 mmol/L Normal 98-107 [facility] Comment on above: Performed By: #### B MP, CBC, HEPATIC, LIPASE #### [facility] [address] CO2 [Moles/Vol] 24.1 mmol/L Normal 21.0-31.0 [facility] Comment on above: Performed By: #### B MP, CBC, HEPATIC, LIPASE #### [facility] [address] Creatinine [Mass/Vol] 0.90 mg/dL Normal 0.70-1.30 [facility] Comment on above: Performed By: #### B MP, CBC, HEPATIC, LIPASE #### [facility] [address] [place] [address] [place] Creatinine Clr Calc Pharmacy 87.06 Normal [facility] Comment on above: Performed By: #### B MP, CBC, HEPATIC, LIPASE #### [place] [address] [place] GFR/1.73 sq M.predicted MDRD (S/P/Bld) [Vol rate/Area] mL/min/{1.73_m2} Normal [facility] Comment on above: Performed By: #### B MP, CBC, HEPATIC, LIPASE #### [address] Glucose [Mass/Vol] 108 mg/dL High 70-[address] [facility] Comment on above: Result Comment: [place] Glucose Reference Range is dependent on time and content of last meal. Glucose of more than 200 mg/dL in a nonstressed, ambulatory subject supports the diagnosis of Diabetes Mellitus. ADA recommended reference range Performed By: #### B MP, CBC, HEPATIC, LIPASE #### [facility] [address] Potassium [Moles/Vol] 4.1 mmol/L Normal 3.5-5.1 [facility] Comment on above: Performed By: #### B MP, CBC, HEPATIC, LIPASE #### [facility] [address] [place] [address] [place] Sodium [Moles/Vol] 138 mmol/L Normal 136-[address] [facility] Comment on above: Performed By: #### B MP, CBC, HEPATIC, LIPASE #### [facility] [address] Urea nitrogen [Mass/Vol] 18 mg/dL Normal 7-25 [facility] Comment on above: Performed By: #### B MP, CBC, HEPATIC, LIPASE #### [facility] [address] abdomen pelvis wo conon 1 CT abdomen pelvis wo con [facility] Main [place] [address] [place] [address] CT Scan Report Signed Patient: Raquel Randolph MR#: [id number] 08 : 1950 Acct:[id number] Age/Sex: 74 / M ADM Date: 05/19/24 Loc: ER Room: Type: [facility] ER Attending Dr: Copies to: Richard Ramirez DO Ordering Provider: Richard Ramirez DO [...] Eliseo Flores M.D.05/19/2024 6:16 PM Dictation Location: [place] [address] Transcribed By: [facility] 05/19/241815 Dictated By: Eliseo Flores II, MD 05/19/241806 Signed By: 05/19/241815 Normal [facility] Complete Blood Count Auto Di ffon 05-19-2024 Basophils (Bld) [#/Vol] 0.0 10*3/uL Normal 0.0-0.2 [facility] Comment on above: Result Comment: PERF ORMED BY: [place] [address] PATHOLOGIST HVAC SHEET METAL INSTALLER HELPER FELIZ FAY M.D. Performed By: #### B MP, CBC, HEPATIC, LIPASE #### [address] Basophils/100 WBC (Bld) 0.6 % Normal . [facility] Comment on above: Performed By: #### B MP, CBC, HEPATIC, LIPASE #### [place] [address] [place] Eosinophils (Bld) [#/Vol] 0.1 10*3/uL Normal 0.0-0.45 [facility] Comment on above: Performed By: #### B MP, CBC, HEPATIC, LIPASE #### [address] Eosinophils/100 WBC (Bld) 1.2 % Normal . [facility] Comment on above: Performed By: #### B MP, CBC, HEPATIC, LIPASE #### [address] Erythrocyte distribution width (RBC) [Ratio] 13.7 % Normal 12.0-14.8 [facility] Comment on above: Performed By: #### B MP, CBC, HEPATIC, LIPASE #### [address] Hematocrit (Bld) [Volume fraction] 41.5 % Normal 38.8-50.0 [facility] Comment on above: Performed By: #### B MP, CBC, HEPATIC, LIPASE #### [address] Hemoglobin (Bld) [Mass/Vol] 14.3 g/dL Normal 13.0-17.0 [facility] Comment on above: Performed By: #### B MP, CBC, HEPATIC, LIPASE #### [address] Lymphocytes (Bld) [#/Vol] 1.9 10*3/uL Normal 1.00-4.8 [facility] Comment on above: Performed By: #### B MP, CBC, HEPATIC, LIPASE #### [address] Lymphocytes/100 WBC (Bld) 23.1 % Normal . [facility] Comment on above: Performed By: #### B MP, CBC, HEPATIC, LIPASE #### [address] MCH (RBC) [Entitic mass] 31.6 pg Normal 27.5-35.2 [facility] Comment on above: Performed By: #### B MP, CBC, HEPATIC, LIPASE #### [address] MCV (RBC) [Entitic vol] 91.7 fL Normal 83.5-101 [facility] Physician [facility] Comment on above: Performed By: #### B MP, CBC, HEPATIC, LIPASE #### [address] Mean Corpuscular HGB Conc 34.4 g/dL Normal 32.5-35.6 [facility] Comment on above: Performed By: #### B MP, CBC, HEPATIC, LIPASE #### [address] Monocytes (Bld) [#/Vol] 0.7 10*3/uL Normal 0.0-0.8 [facility] Comment on above: Performed By: #### B MP, CBC, HEPATIC, LIPASE #### [address] Monocytes/100 WBC (Bld) 17.49 % Normal 0.00-20.00 [facility] Comment on above: Performed By: #### B MP, CBC, HEPATIC, LIPASE #### [address] Monocytes/100 WBC (Bld) 8.8 % Normal . [facility] Physician [facility] Comment on above: Performed By: #### B MP, CBC, HEPATIC, LIPASE #### [address] Neutrophils (Bld) [#/Vol] 5.4 10*3/uL Normal 1.8-7.7 [facility] Comment on above: Performed By: #### B MP, CBC, HEPATIC, LIPASE #### [address] Neutrophils/100 WBC (Bld) 66.3 % Normal . [facility] Comment on above: Performed By: #### B MP, CBC, HEPATIC, LIPASE #### [address] NRBC% 0.1 /100{WBC} Normal 0-0.5 [facility] Comment on above: Performed By: #### B MP, CBC, HEPATIC, LIPASE #### [facility] [address] Platelet mean volume (Bld) [Entitic vol] 8.2 fL Normal 6.6-10.1 The [facility] Comment on above: Performed By: #### B MP, CBC, HEPATIC, LIPASE #### [facility] [address] Platelets (Bld) [#/Vol] 248 10*3/uL Normal 150-450 [facility] Comment on above: Performed By: #### B MP, CBC, HEPATIC, LIPASE #### [facility] [address] RBC (Bld) [#/Vol] 4.52 10*6/uL Normal 3.90-5.60 [facility] Comment on above: Performed By: #### B MP, CBC, HEPATIC, LIPASE #### [facility] [address] WBC (Bld) [#/Vol] 8.2 10*3/uL Normal 4.1-10.[address] [facility] Comment on above: Performed By: #### B MP, CBC, HEPATIC, LIPASE #### [address] Dipstick and Microscopicon 1 Appearance (U) Turbid Critically abnormal Clear [facility] Comment on above: Order Comment: Name Collection Type:: Clean-Voided Midstream Performed By: #### A DDONUAPLUS, CUU ####[facility] [place] [id number] [place] Bacteria,Urine None Seen Normal None Seen [facility] Comment on above: Order Comment: Name Collection Type:: Clean-Voided Midstream Performed By: #### A DDONUAPLUS, CUU ####[place] [address] [place] [id number] [place] Bilirubin,Urine Negative Normal Negative [facility] Comment on above: Order Comment: Name Collection Type:: Clean-Voided Midstream Performed By: #### A DDONUAPLUS, CUU ####[place] [id number] [facility] [place] Yeast,Urine 4+ High None Seen [facility] Comment on above: Order Comment: Name Collection Type:: Clean-Voided Midstream Result Comment: PERF ORMED BY: [facility] [address] [place] [address] PATHOLOGIST HVAC SHEET METAL INSTALLER HELPER FELIZ FAY M.D. Performed By: #### A DDONUAPLUS, CUU ####[address] Calcium Oxalate Crystals,Urine 4+ Normal [facility] Comment on above: Order Comment: Name Collection Type:: Clean-Voided Midstream Performed By: #### A DDONUAPLUS, CUU ####[address] Color (U) Dark-Brown Critically abnormal Yellow [facility] Comment on above: Order Comment: Name Collection Type:: Clean-Voided Midstream Performed By: #### A DDONUAPLUS, CUU ####[place] [id number] [facility] Glucose Ql (U) Normal Normal Normal [facility] Comment on above: Order Comment: Name Collection Type:: Clean-Voided Midstream Performed By: #### A DDONUAPLUS, CUU ####[place] [id number] [facility] Hyaline Casts,Urine None Normal 0-8 [facility] Comment on above: Order Comment: Name Collection Type:: Clean-Voided Midstream Performed By: #### A DDONUAPLUS, CUU ####[place] [id number] [facility] Ketones Ql (U) Negative Normal Negative [facility] Comment on above: Order Comment: Name Collection Type:: Clean-Voided Midstream Performed By: #### A DDONUAPLUS, CUU ####[place] [address] [place] [address] [facility] Leukocyte esterase Test strip Ql (U) 2+ High Negative [facility] Comment on above: Order Comment: Name Collection Type:: Clean-Voided Midstream Performed By: #### A DDONUAPLUS, CUU ####[place] [address] [place] [address] [facility] Mucus,Urine Rare Normal [facility] Comment on above: Order Comment: Name Collection Type:: Clean-Voided Midstream Performed By: #### A DDONUAPLUS, CUU ####[place] [address] [place] [address] [facility] Nitrite,Urine Negative Normal Negative [facility] Comment on above: Order Comment: Name Collection Type:: Clean-Voided Midstream Performed By: #### A DDONUAPLUS, CUU ####[address] [address] [facility] Occult Blood,Urine 3+ High Negative [facility] Comment on above: Order Comment: Name Collection Type:: Clean-Voided Midstream Result Comment: PERF ORMED BY: [facility] [address] [place] [id number] PATHOLOGIST HVAC SHEET METAL INSTALLER HELPER FELIZ FAY M.D. Performed By: #### A DDONUAPLUS, CUU ####[address] [address] [facility] pH (U) 6.0 [pH] Normal 5.0-9.0 [facility] Comment on above: Order Comment: Name Collection Type:: Clean-Voided Midstream Performed By: #### A DDONUAPLUS, CUU ####[address] [address] [facility] Protein (U) [Mass/Vol] 100 mg/dL High Negative [facility] Comment on above: Order Comment: Name Collection Type:: Clean-Voided Midstream Performed By: #### A DDONUAPLUS, CUU ####[address] [address] [place] RBC,Urine Innumerable High 0-4 [facility] Comment on above: Order Comment: Name Collection Type:: Clean-Voided Midstream Performed By: #### A DDONUAPLUS, CUU ####[address] Specificy [place],Urine 1.020 Normal 1.001-1.030 [facility] Comment on above: Order Comment: Name Collection Type:: Clean-Voided Midstream Performed By: #### A DDONUAPLUS, CUU ####[address] Urobilinogen,Urine Normal Normal Normal [facility] Comment on above: Order Comment: Name Collection Type:: Clean-Voided Midstream Performed By: #### A DDONUAPLUS, CUU ####[address] WBC,Urine Innumerable High 0-4 [facility] Comment on above: Order Comment: Name Collection Type:: Clean-Voided Midstream Performed By: #### A DDONUAPLUS, CUU ####[address] Hepatic Panelon 05-19-2024 Albumin [Mass/Vol] 4.3 g/dL Normal 3.5-5.[address] [facility] Comment on above: Performed By: #### B MP, CBC, HEPATIC, LIPASE #### [address] Albumin/Globulin [Mass ratio] 1.7 {ratio} Normal [facility] Comment on above: Performed By: #### B MP, CBC, HEPATIC, LIPASE #### [facility] [address] ALP [Catalytic activity/Vol] 76 U/L Normal 34-104 [facility] Comment on above: Performed By: #### B MP, CBC, HEPATIC, LIPASE #### [address] ALT [Catalytic activity/Vol] 36 U/L Normal 7-52 [facility] Comment on above: Performed By: #### B MP, CBC, HEPATIC, LIPASE #### [facility] [address] AST [Catalytic activity/Vol] 23 U/L Normal 13-39 [facility] Comment on above: Performed By: #### B MP, CBC, HEPATIC, LIPASE #### [facility] [address] Bilirubin [Mass/Vol] 1.1 mg/dL High 0.3-1.0 [facility] Comment on above: Performed By: #### B MP, CBC, HEPATIC, LIPASE #### [facility] [address] Bilirubin,Indirect 1.0 mg/dL Normal [facility] Comment on above: Performed By: #### B MP, CBC, HEPATIC, LIPASE #### [facility] [address] Bilirubin.indirect [Mass/Vol] 0.10 mg/dL Normal 0.03-0.18 [facility] Comment on above: Performed By: #### B MP, CBC, HEPATIC, LIPASE #### [facility] [address] Globulin (S) [Mass/Vol] 2.6 g/dL Normal T [facility] Comment on above: Performed By: #### B MP, CBC, HEPATIC, LIPASE #### [facility] [address] Protein [Mass/Vol] 6.9 g/dL Normal 6.4-8.[address] [facility] Comment on above: Performed By: #### B MP, CBC, HEPATIC, LIPASE #### [facility] [address] Lipaseon 05-19-2024 Lipase [Catalytic activity/Vol] 13.0 U/L Normal 11.0-82.0 [facility] Comment on above: Result Comment: PERF ORMED BY: [place] [address] PATHOLOGIST HVAC SHEET METAL INSTALLER HELPER FELIZ FAY M.D. Performed By: #### B MP, CBC, HEPATIC, LIPASE #### [facility] [address] Urine Cultureon 05-19-2024 Bacteria identified Cx Nom (U) <9,000 colonies/ml mixed bacterial skin contaminants 2 Days PERFORMED BY: [place] [address] PATHOLOGIST HVAC SHEET METAL INSTALLER HELPER FELIZ FAY M.D. Normal [facility] Comment on above: Performed By: #### A DDONUAPLUS, CUU ####[facility] [place] [address] [place] Dipstick and Microscopicon 1 06-27-2023 Appearance (U) Turbid Critically abnormal Clear [facility] Comment on above: Order Comment: Name Collection Type:: Rodriguez Catheter Performed By: #### A DDONUAPLUS, CUU #### [place] [address] [place] Bacteria,Urine None Seen Normal None Seen [facility] Comment on above: Order Comment: Name Collection Type:: Rodriguez Catheter Performed By: #### A DDONUAPLUS, CUU #### [place] [address] [place] Bilirubin,Urine Negative Normal Negative [facility] Comment on above: Order Comment: Name Collection Type:: Rodriguez Catheter Performed By: #### A DDONUAPLUS, CUU #### [place] [address] [place] Color (U) Brown Critically abnormal Yellow [facility] Comment on above: Order Comment: Name Collection Type:: Rodriguez Catheter Performed By: #### A DDONUAPLUS, CUU #### [place] [address] [place] Glucose Ql (U) Normal Normal Normal [facility] Comment on above: Order Comment: Name Collection Type:: Rodriguez Catheter Performed By: #### A DDONUAPLUS, CUU #### [place] [address] [place] Hyaline Casts,Urine None Normal 0-8 [facility] Comment on above: Order Comment: Name Collection Type:: Rodriguez Catheter Performed By: #### A DDONUAPLUS, CUU #### [address] Ketones Ql (U) Negative Normal Negative [facility] Comment on above: Order Comment: Name Collection Type:: Rodriguez Catheter Performed By: #### A DDONUAPLUS, CUU #### [address] Leukocyte esterase Test strip Ql (U) 1+ High Negative [facility] Comment on above: Order Comment: Name Collection Type:: Rodriguez Catheter Performed By: #### A DDONUAPLUS, CUU #### [address] Mucus,Urine Rare Normal [facility] Comment on above: Order Comment: Name Collection Type:: Rodriguez Catheter Result Comment: PERF ORMED BY: [place] [address] PATHOLOGIST HVAC SHEET METAL INSTALLER HELPER FELIZ FAY M.D. Performed By: #### A DDONUAPLUS, CUU #### [place] [address] [place] Nitrite,Urine Negative Normal Negative [facility] Comment on above: Order Comment: Name Collection Type:: Rodriguez Catheter Performed By: #### A DDONUAPLUS, CUU #### [place] [address] [place] Occult Blood,Urine 3+ High Negative [facility] Comment on above: Order Comment: Name Collection Type:: Rodriguez Catheter Result Comment: PERF ORMED BY: [place] [address] PATHOLOGIST HVAC SHEET METAL INSTALLER HELPER FELIZ FAY M.D. Performed By: #### A DDONUAPLUS, CUU #### [place] [address] [place] pH (U) 6.0 [pH] Normal 5.0-9.0 [facility] Comment on above: Order Comment: Name Collection Type:: Rodriguez Catheter Performed By: #### A DDONUAPLUS, CUU #### [address] Protein (U) [Mass/Vol] 100 mg/dL High Negative [facility] Comment on above: Order Comment: Name Collection Type:: Rodriguez Catheter Performed By: #### A DDONUAPLUS, CUU #### [address] RBC,Urine Innumerable High 0-4 [facility] Comment on above: Order Comment: Name Collection Type:: Rodriguez Catheter Performed By: #### A DDONUAPLUS, CUU #### [address] Specificy [place],Urine 1.016 Normal 1.001-1.030 [facility] Comment on above: Order Comment: Name Collection Type:: Rodriguez Catheter Result Comment: Rech ecked by refractometer Performed By: #### A DDONUAPLUS, CUU #### [address] Squamous Epithelial Cell,Urine 1 [HPF] Normal 0-2 [facility] Comment on above: Order Comment: Name Collection Type:: Rodriguez Catheter Performed By: #### A DDONUAPLUS, CUU #### [address] Urobilinogen,Urine Normal Normal Normal [facility] Comment on above: Order Comment: Name Collection Type:: Rodriguez Catheter Performed By: #### A DDONUAPLUS, CUU #### [place] [address] [place] WBC,Urine Innumerable High 0-4 [facility] Comment on above: Order Comment: Name Collection Type:: Rodriguez Catheter Performed By: #### A DDONUAPLUS, CUU #### [address] Urine Cultureon 04-26-2024 Bacteria identified Cx Nom (U) No Growth 2 Days PERFORMED BY: [facility] [address] [facility] [place] [address] PATHOLOGIST HVAC SHEET METAL INSTALLER HELPER FELIZ FAY M.D. Normal [facility] Comment on above: Performed By: #### A WAI HEDRICK #### [facility] [address] Ambulatory Visit Summaryon 1 06-26-2023 Ambulatory [...] Following Appointments Follow Up with SARA MUNSON, Montrell Awad, URL When: Where: [address] [place] [address]- Medications What How Much When Instructions Unchanged [...] including vitamins, herbs, eye drops, creams, and rhxo-qnr-npycehi medicines. ??? Any problems you or family [...] care provider tells you to. ??? Taking bhrf-dao-hkcysmw medicines, vitamins, herbs, and supplements. Tests You [...] you fo (more content not included)... Normal [facility] Ambulatory Visit Summary Ambulatory Visit Summary RAQUEL RANDOLPH :1950 Visit Date:04/25/2024 Ambulatory Visit Instructions Your Diagnosis Ureteral stone with hydronephrosis Kidney stone Your Care Team Attending Physician - Montrell HOLT MD Primary Care Physician - JEWEL TORRES MD [...] Following Appointments Follow Up with SARA MUNSON, Montrell Awad, URL When: Where: [address] [place] [address]- Medications What How Much When Instructions Unchanged [...] including vitamins, herbs, eye drops, creams, and bnvu-iov-awptlgu medicines. ??? Any problems you or family [...] care provider tells you to. ??? Taking zstl-gaw-gyfvura medicines, vitamins, herbs, and supplements. Tests You [...] you fo (more content not included)... Normal [facility] Urology Office/Clinic Noteon 04-25-2024 Urology Office/Clinic Note Urology Office/Clinic Note Chief [...] 73 yo male following up to recent [facility] ER visit for ureteral stone. Pt accompanied by today. Unable to find PSA. IPPS 3. 1. Ureteral stone with hydronephrosis (N13.2: Hydronephrosis with renal and ureteral calculous obstruction) Pt presented to [facility] ER 04/23/24 RLQ pain and N/V. He has been having intermittent pain/nausea for several weeks or months...he is unsure. CT AP w con 04/23/24 - 7 mm right UPJ stone with moderate hydronephrosis. KUB 04/23/24 [facility] - R UPJ stone seen on CT [...] since midnight. Reports he is flying to [place] on Saturday 04/28. Due to upcoming trip, [...] of kidney) CT AP w con 04/23/24 FR - Punctate right calyceal stone. KUB 04/23/24 FR - no stones. Hx of stones. One episode which was >[address] Puentes performed ESWL and had stent placed. See #1. Follow-up With When Contact Information Montrell HOLT MD, URL [facility] [place] [address]- Additional Instructions: R ESWL with stent (later this afternoon) Patient Education ESWL for Kidney Stones I, Shantell Dotson, personally scribed for Dr. Holt on 04/25/2024 10:12:13. . Documentation recorded by the scribeShantell, accurately reflects the services(s) I performed and decisions made by me. Authenticated by Dr. Holt on 04/25/2024 10:15:21. Problem List/Past Medical History Ongoing Kidney stone Ureteral stone with hydronephrosis (more content not included)... Normal [facility] Comment on above: Result Comment: Elec tronically Signed By: Montrell HOLT MD\.br\Date and Time Signed: 04/25/24 10:15 EST\.br\Electronically Co-Signed By: Shantell Dotson.br\Date and Time Co-Signed: 04/25/24 10:12 EST Basic Metabolic Panelon 12-0 Anion gap [Moles/Vol] 12.5 mmol/L Normal 6.0-15.0 [facility] Comment on above: Performed By: #### H EPATIC, BMP, LIPASE, CBC ####[address] Calcium [Mass/Vol] 8.9 mg/dL Normal 8.6-10.[address] [facility] Comment on above: Performed By: #### H EPATIC, BMP, LIPASE, CBC ####[address] Chloride [Moles/Vol] 103 mmol/L Normal 98-107 [facility] Comment on above: Performed By: #### H EPATIC, BMP, LIPASE, CBC ####[address] CO2 [Moles/Vol] 24.7 mmol/L Normal 21.0-31.0 [facility] Comment on above: Performed By: #### H EPATIC, BMP, LIPASE, CBC ####[address] Creatinine [Mass/Vol] 0.90 mg/dL Normal 0.70-1.30 [facility] Comment on above: Performed By: #### H EPATIC, BMP, LIPASE, CBC ####[address] Creatinine Clr Calc Pharmacy 89.89 Normal [facility] Comment on above: Performed By: #### H EPATIC, BMP, LIPASE, CBC ####[place] [id number] [facility] GFR/1.73 sq M.predicted MDRD (S/P/Bld) [Vol rate/Area] mL/min/{1.73_m2} Normal [facility] Comment on above: Performed By: #### H EPATIC, BMP, LIPASE, CBC ####[address] Glucose [Mass/Vol] 112 mg/dL High 70-[address] [facility] Comment on above: Result Comment: [place] Glucose Reference Range is dependent on time and content of last meal. Glucose of more than 200 mg/dL in a nonstressed, ambulatory subject supports the diagnosis of Diabetes Mellitus. ADA recommended reference range Performed By: #### H EPATIC, BMP, LIPASE, CBC ####[place] [address] Potassium [Moles/Vol] 4.2 mmol/L Normal 3.5-5.1 [facility] Comment on above: Performed By: #### H EPATIC, BMP, LIPASE, CBC ####[place] [address] Sodium [Moles/Vol] 136 mmol/L Normal 136-[address] [facility] Comment on above: Performed By: #### H EPATIC, BMP, LIPASE, CBC ####[place] [address] Urea nitrogen [Mass/Vol] 29 mg/dL High 7-25 [facility] Comment on above: Performed By: #### H EPATIC, BMP, LIPASE, CBC ####[address] abdomen pelvis w conon CT abdomen pelvis w con [facility] [place] [address] CT Scan Report Signed Patient: Raquel Randolph MR#: [id number] 08 : 1950 Acct:[id number] Age/Sex: 73 / M ADM Date: 04/23/24 Loc: ER Room: Type: [facility] ER Attending Dr: Copies to: Abdi Lobo [...] Anibal Contreras M.D.04/23/2024 8:36 AM Dictation Location: [place] [address] Transcribed By: [facility] 04/23/2436 Dictated By: Anibal Contreras DO 04/23/24 0830 Signed By: 04/23/24 0836 Normal [facility] Complete Blood Count Auto Di ffon 04-23-2024 Basophils (Bld) [#/Vol] 0.1 10*3/uL Normal 0.0-0.2 [facility] Comment on above: Result Comment: PERF ORMED BY: [facility] [address] [place] [address] PATHOLOGIST HVAC SHEET METAL INSTALLER HELPER FELIZ FAY M.D. Performed By: #### H EPATIC, BMP, LIPASE, CBC ####[facility] [place] [id number] [facility] Basophils/100 WBC (Bld) 0.9 % Normal . [facility] Comment on above: Performed By: #### H EPATIC, BMP, LIPASE, CBC ####[facility] [address] [place] [id number] [place] Eosinophils (Bld) [#/Vol] 0.1 10*3/uL Normal 0.0-0.45 [facility] Comment on above: Performed By: #### H EPATIC, BMP, LIPASE, CBC ####[address] Eosinophils/100 WBC (Bld) 1.5 % Normal . [facility] Comment on above: Performed By: #### H EPATIC, BMP, LIPASE, CBC ####[address] Erythrocyte distribution width (RBC) [Ratio] 13.5 % Normal 12.0-14.8 [facility] Comment on above: Performed By: #### H EPATIC, BMP, LIPASE, CBC ####[address] Hematocrit (Bld) [Volume fraction] 43.0 % Normal 38.8-50.0 [facility] Comment on above: Performed By: #### H EPATIC, BMP, LIPASE, CBC ####[address] Hemoglobin (Bld) [Mass/Vol] 14.8 g/dL Normal 13.0-17.0 [facility] Comment on above: Performed By: #### H EPATIC, BMP, LIPASE, CBC ####[address] Lymphocytes (Bld) [#/Vol] 1.7 10*3/uL Normal 1.00-4.8 [facility] Comment on above: Performed By: #### H EPATIC, BMP, LIPASE, CBC ####[address] Lymphocytes/100 WBC (Bld) 28.8 % Normal . [facility] Comment on above: Performed By: #### H EPATIC, BMP, LIPASE, CBC ####[address] MCH (RBC) [Entitic mass] 32.0 pg Normal 27.5-35.2 [facility] Comment on above: Performed By: #### H EPATIC, BMP, LIPASE, CBC ####[address] MCV (RBC) [Entitic vol] 93.0 fL Normal 83.5-101 [facility] Comment on above: Performed By: #### H EPATIC, BMP, LIPASE, CBC ####[address] Mean Corpuscular HGB Conc 34.4 g/dL Normal 32.5-35.6 [facility] Comment on above: Performed By: #### H EPATIC, BMP, LIPASE, CBC ####[address] Monocytes (Bld) [#/Vol] 0.7 10*3/uL Normal 0.0-0.8 [facility] Comment on above: Performed By: #### H EPATIC, BMP, LIPASE, CBC ####[address] Monocytes/100 WBC (Bld) 16.40 % Normal 0.00-20.00 [facility] Comment on above: Performed By: #### H EPATIC, BMP, LIPASE, CBC ####[address] Monocytes/100 WBC (Bld) 11.8 % Normal . [facility] Comment on above: Performed By: #### H EPATIC, BMP, LIPASE, CBC ####[address] Neutrophils (Bld) [#/Vol] 3.3 10*3/uL Normal 1.8-7.7 [facility] Comment on above: Performed By: #### H EPATIC, BMP, LIPASE, CBC ####[address] Neutrophils/100 WBC (Bld) 57.0 % Normal . [facility] Comment on above: Performed By: #### H EPATIC, BMP, LIPASE, CBC ####[address] [place] [address] [place] NRBC% 0.1 /100{WBC} Normal 0-0.5 [facility] Comment on above: Performed By: #### H EPATIC, BMP, LIPASE, CBC ####[address] Platelet mean volume (Bld) [Entitic vol] 8.0 fL Normal 6.6-10.1 The [facility] Comment on above: Performed By: #### H EPATIC, BMP, LIPASE, CBC ####[address] Platelets (Bld) [#/Vol] 213 10*3/uL Normal 150-450 [facility] Comment on above: Performed By: #### H EPATIC, BMP, LIPASE, CBC ####[address] RBC (Bld) [#/Vol] 4.62 10*6/uL Normal 3.90-5.60 [facility] Comment on above: Performed By: #### H EPATIC, BMP, LIPASE, CBC ####[address] WBC (Bld) [#/Vol] 5.8 10*3/uL Normal 4.1-10.[address] [facility] Comment on above: Performed By: #### H EPATIC, BMP, LIPASE, CBC ####[address] Dipstick and Microscopicon 1 06-24-2023 Appearance (U) Clear Normal Clear [facility] Comment on above: Order Comment: Name Collection Type:: Clean-Voided Midstream Performed By: #### A DDONUAPLUS #### [address] Bacteria,Urine None Seen Normal None Seen [facility] Comment on above: Order Comment: Name Collection Type:: Clean-Voided Midstream Performed By: #### A DDONUAPLUS #### [place] [address] [place] Bilirubin,Urine Negative Normal Negative [facility] Comment on above: Order Comment: Name Collection Type:: Clean-Voided Midstream Performed By: #### A DDONUAPLUS #### [address] Color (U) Light-Yellow Normal Yellow [facility] Comment on above: Order Comment: Name Collection Type:: Clean-Voided Midstream Performed By: #### A DDONUAPLUS #### [address] Glucose Ql (U) Normal Normal Normal [facility] Comment on above: Order Comment: Name Collection Type:: Clean-Voided Midstream Performed By: #### A DDONUAPLUS #### [address] Hyaline Casts,Urine None Normal 0-8 [facility] Comment on above: Order Comment: Name Collection Type:: Clean-Voided Midstream Performed By: #### A DDONUAPLUS #### [address] Ketones Ql (U) Negative Normal Negative [facility] Comment on above: Order Comment: Name Collection Type:: Clean-Voided Midstream Performed By: #### A DDONUAPLUS #### [address] Leukocyte esterase Test strip Ql (U) Negative Normal Negative [facility] Comment on above: Order Comment: Name Collection Type:: Clean-Voided Midstream Performed By: #### A DDONUAPLUS #### [place] [address] [place] Mucus,Urine 1+ Critically abnormal [facility] Comment on above: Order Comment: Name Collection Type:: Clean-Voided Midstream Result Comment: PERF ORMED BY: [place] [address] PATHOLOGIST HVAC SHEET METAL INSTALLER HELPER FELIZ FAY M.D. Performed By: #### A DDONUAPLUS #### [place] [address] [place] Nitrite,Urine Negative Normal Negative [facility] Comment on above: Order Comment: Name Collection Type:: Clean-Voided Midstream Performed By: #### A DDONUAPLUS #### [place] [address] [place] Occult Blood,Urine 3+ High Negative [facility] Comment on above: Order Comment: Name Collection Type:: Clean-Voided Midstream Result Comment: PERF ORMED BY: [place] [address] PATHOLOGIST HVAC SHEET METAL INSTALLER HELPER FELIZ FAY M.D. Performed By: #### A DDONUAPLUS #### [address] pH (U) 5.5 [pH] Normal 5.0-9.0 [facility] Comment on above: Order Comment: Name Collection Type:: Clean-Voided Midstream Performed By: #### A DDONUAPLUS #### [place] [address] [place] Protein,Urine Trace High Negative [facility] Comment on above: Order Comment: Name Collection Type:: Clean-Voided Midstream Performed By: #### A DDONUAPLUS #### [place] [address] [place] RBC,Urine Innumerable High 0-4 [facility] Comment on above: Order Comment: Name Collection Type:: Clean-Voided Midstream Performed By: #### A DDONUAPLUS #### [place] [address] [place] Specificy [place],Urine 1.018 Normal 1.001-1.030 [facility] Comment on above: Order Comment: Name Collection Type:: Clean-Voided Midstream Performed By: #### A DDONUAPLUS #### [place] [address] [place] Urobilinogen,Urine Normal Normal Normal [facility] Comment on above: Order Comment: Name Collection Type:: Clean-Voided Midstream Performed By: #### A DDONUAPLUS #### [facility] [address] WBC,Urine 1 [HPF] Normal 0-4 [facility] Comment on above: Order Comment: Name Collection Type:: Clean-Voided Midstream Performed By: #### A DDONUAPLUS #### [facility] [address] Hepatic Panelon 04-23-2024 Albumin [Mass/Vol] 4.1 g/dL Normal 3.5-5.[address] [facility] Comment on above: Performed By: #### H EPATIC, BMP, LIPASE, CBC ####[address] Albumin/Globulin [Mass ratio] 1.5 {ratio} Normal [facility] Comment on above: Performed By: #### H EPATIC, BMP, LIPASE, CBC ####[address] ALP [Catalytic activity/Vol] 59 U/L Normal 34-104 [facility] Comment on above: Performed By: #### H EPATIC, BMP, LIPASE, CBC ####[address] ALT [Catalytic activity/Vol] 23 U/L Normal 7-52 [facility] Comment on above: Performed By: #### H EPATIC, BMP, LIPASE, CBC ####[address] AST [Catalytic activity/Vol] 19 U/L Normal 13-39 [facility] Comment on above: Performed By: #### H EPATIC, BMP, LIPASE, CBC ####[address] Bilirubin [Mass/Vol] 1.2 mg/dL High 0.3-1.0 [facility] Comment on above: Performed By: #### H EPATIC, BMP, LIPASE, CBC ####[address] Bilirubin,Indirect 1.1 mg/dL Normal [facility] Comment on above: Performed By: #### H EPATIC, BMP, LIPASE, CBC ####[address] Bilirubin.indirect [Mass/Vol] 0.10 mg/dL Normal 0.03-0.18 [facility] Comment on above: Performed By: #### H EPATIC, BMP, LIPASE, CBC ####[address] Globulin (S) [Mass/Vol] 2.8 g/dL Normal [facility] Comment on above: Performed By: #### H EPATIC, BMP, LIPASE, CBC ####[address] Protein [Mass/Vol] 6.9 g/dL Normal 6.4-8.[address] [facility] Comment on above: Performed By: #### H EPATIC, BMP, LIPASE, CBC ####[address] Lipaseon 04-23-2024 Lipase [Catalytic activity/Vol] 13.0 U/L Normal 11.0-82.0 [facility] Comment on above: Result Comment: PERF ORMED BY: [place] [address] PATHOLOGIST HVAC SHEET METAL INSTALLER HELPER FELIZ FAY M.D. Performed By: #### H EPATIC, BMP, LIPASE, CBC ####[address] XR KUBon 04-23-2024 XR KUB [facility] [place] [address] XRay Report Signed Patient: Raquel Randolph MR#: [id number] 08 : 1950 Acct:[id number] Age/Sex: 73 / M ADM Date: 04/23/24 Loc: ER Room: Type: [facility] ER Attending Dr: Copies to: Abdi Lobo [...] Winifred Ac M.D.04/23/2024 11:19 AM Dictation Location: [place] [address] Transcribed By: VAZQUEZ 04/23/24 1119 Dictated By: Winifred Ac MD 04/23/24 1116 Signed By: 04/23/24 1119 Normal [facility] Alanine aminotransferase [En zymatic activity/volume] in Serum or PlasmaOrdered By: Wendy Pastor on 06-06-2023 ALT [Catalytic activity/Vol] 27 U/L 7-52 [facility] Albumin [Mass/volume] in Ser um or Plasma by Bromocresol green (BCG) dye binding methoOrdered By: Wendy Pastor on 06-06-2023 Albumin BCG dye [Mass/Vol] 4.1 g/dL 3.5-5.7 [facility] Alkaline phosphatase [Enzyma tic activity/volume] in Serum or PlasmaOrdered By: Wendy Pastor on 06-06-2023 ALP [Catalytic activity/Vol] 68 U/L 34-104 [facility] Aspartate aminotransferase [ Enzymatic activity/volume] in Serum or PlasmaOrdered By: Wendy Pastor on 06-06-2023 AST [Catalytic activity/Vol] 19 U/L 13-39 [facility] Basophils Auto (Bld) [#/Vol] Ordered By: Wendy Pastor on 06-06-2023 Basophils (Bld) [#/Vol] 0.1 10*3/uL 0.0-0.2 [facility] Basophils/100 WBC Auto (Bld) Ordered By: Wendy Pastor on 06-06-2023 Basophils/100 WBC (Bld) 0.8 % . [facility] Bilirubin.total [Mass/volume ] in Serum or PlasmaOrdered By: Wendy Pastor on 06-06-2023 Bilirubin [Mass/Vol] 1.2 mg/dL 0.3-1.0 [facility] Calcium [Mass/volume] in Ser um or PlasmaOrdered By: Wendy Pastor on 06-06-2023 Calcium [Mass/Vol] 8.9 mg/dL 8.6-10.3 [facility] Carbon dioxide, total [Moles /volume] in Serum or PlasmaOrdered By: Wendy Pastor on 06-06-2023 CO2 [Moles/Vol] 28.6 mmol/L 21.0-31.0 [facility] Chloride [Moles/volume] in S shawn or PlasmaOrdered By: Wendy Pastor on 06-06-2023 Chloride [Moles/Vol] 103 mmol/L 98-107 [facility] Cholesterol [Mass/volume] in Serum or PlasmaOrdered By: Wendy Pastor on 06-06-2023 Cholesterol [Mass/Vol] 203 mg/dL 140-200 [facility] Comment on above: Chol less than 200 m g/dl low riskChol 201-239 mg/dl borderline riskChol 240 mg/dl and greater high risk Cholesterol in LDL Calc [Mas s/Vol]Ordered By: Wendy Pastor on 06-06-2023 Cholesterol in LDL [Mass/Vol] 133 mg/dL 0-100 [facility] Comment on above: LDL ATP III CLASSIFI CATIONLDL less than 100 mg/dL OptimalLDL 100-129 mg/dL Near or above optimalLDL 130-159 mg/dL Borderline highLDL 160-189 mg/dL HighLDL greater than 189 mg/dL Very high Cholesterol in VLDL Calc [Ma ss/Vol]Ordered By: Wendy Pastor on 06-06-2023 Cholesterol in VLDL [Mass/Vol] 15 mg/dL [facility] Creatinine [Mass/volume] in Serum or PlasmaOrdered By: Wendy Pastor on 06-06-2023 Creatinine [Mass/Vol] 0.82 mg/dL 0.70-1.30 [facility] Eosinophils Auto (Bld) [#/Vo l]Ordered By: Wendy Pastor on 06-06-2023 Eosinophils (Bld) [#/Vol] 0.1 10*3/uL 0.0-0.45 [facility] Eosinophils/100 WBC Auto (Bl d)Ordered By: Wendy Pastor on 06-06-2023 Eosinophils/100 WBC (Bld) 1.4 % . [facility] Erythrocyte distribution wid th Auto (RBC) [Ratio]Ordered By: Wendy Pastor on 06-06-2023 Erythrocyte distribution width (RBC) [Ratio] 13.8 % 12.0-14.8 [facility] Globulin Calc (S) [Mass/Vol] Ordered By: Wendy Pastor on 06-06-2023 Globulin (S) [Mass/Vol] 2.1 g/dL [facility] Glucose [Mass/volume] in Ser um or PlasmaOrdered By: Wendy Pastor on 06-06-2023 Glucose [Mass/Vol] 94 mg/dL 70-100 [facility] Comment on above: ADA recommended refe rence rangeRandom Glucose Reference Range is dependent on time and content of last meal. Glucose of more than 200 mg/dL in a nonstressed, ambulatory subject supports the diagnosis of Diabetes Mellitus. Glucose mean value [Mass/vol ume] in Blood Estimated from glycated hemoglobinOrdered By: Wendy Pastor on 06-06-2023 Average glucose Estimated from glycated hemoglobin (Bld) [Mass/Vol] 126 mg/dL [facility] Hematocrit Auto (Bld) [Volum e fraction]Ordered By: Wendy Pastor on 06-06-2023 Hematocrit (Bld) [Volume fraction] 42.2 % 38.8-50.0 [facility] Hemoglobin A1c percentageOrd ered By: Wendy Pastor on 06-06-2023 HbA1c (Bld) [Mass fraction] 6.0 % 4.3-5.6 [facility] Comment on above: Increased risk for d iabetes: 5.7 - 6.4diabetes: >6.4glycemic control for adults with diabetes: <7.0 Hemoglobin [Mass/volume] in BloodOrdered By: Wendy Pastor on 06-06-2023 Hemoglobin (Bld) [Mass/Vol] 14.5 g/dL 13.0-17.0 [facility] Leukocytes [#/volume] correc gianni for nucleated erythrocytes in Blood by Automated counOrdered By: Wendy Pastor on 06-06-2023 WBC corrected for nucl RBC Auto (Bld) [#/Vol] 8.6 10*3/uL 4.1-10.5 [facility] Lymphocytes Auto (Bld) [#/Vo l]Ordered By: Wendy Pastor on 06-06-2023 Lymphocytes (Bld) [#/Vol] 2.2 10*3/uL 1.00-4.8 [facility] Lymphocytes/100 WBC Auto (Bl d)Ordered By: Wendy Pastor on 06-06-2023 Lymphocytes/100 WBC (Bld) 25.3 % . [facility] MCH Auto (RBC) [Entitic mass ]Ordered By: Wendy Pastor on 06-06-2023 MCH (RBC) [Entitic mass] 32.1 pg 27.5-35.2 [facility] MCHC Auto (RBC) [Mass/Vol]Or dered By: Wendy Pastor on 06-06-2023 MCHC (RBC) [Mass/Vol] 34.3 g/dL 32.5-35.6 [facility] MCV Auto (RBC) [Entitic vol] Ordered By: Wendy Pastor on 06-06-2023 MCV (RBC) [Entitic vol] 93.6 fL 83.5-101 [facility] Monocytes Auto (Bld) [#/Vol] Ordered By: Wendy Pastor on 06-06-2023 Monocytes (Bld) [#/Vol] 1.0 10*3/uL 0.0-0.8 [facility] Monocytes/100 WBC Auto (Bld) Ordered By: Wendy Pastor on 06-06-2023 Monocytes/100 WBC (Bld) 11.1 % . [facility] Neutrophils Auto (Bld) [#/Vo l]Ordered By: Wendy Pastor on 06-06-2023 Neutrophils (Bld) [#/Vol] 5.3 10*3/uL 1.8-7.7 [facility] Neutrophils/100 WBC Auto (Bl d)Ordered By: Wendy Pastor on 06-06-2023 Neutrophils/100 WBC (Bld) 61.4 % . [facility] No Panel InformationOrdered By: Wendy Pastor on 06-06-2023 Estimated GFR (CKD-EPI) > 60.0 mL/Min [facility] Creatinine Clearance (Chem N/A [facility] Nucleated erythrocytes [Pres ence] in Blood by Automated countOrdered By: Wendy Pastor on 06-06-2023 Nucleated RBC Auto Ql (Bld) 0.0 /100{WBC} 0-0.5 [facility] Platelet mean volume Auto (B ld) [Entitic vol]Ordered By: Wendy Pastor on 06-06-2023 Platelet mean volume (Bld) [Entitic vol] 7.9 fL 6.6-10.1 [facility] Platelets Auto (Bld) [#/Vol] Ordered By: Wendy Pastor on 06-06-2023 Platelets (Bld) [#/Vol] 228 10*3/uL 150-450 [facility] Potassium [Moles/volume] in Serum or PlasmaOrdered By: Wendy Pastor on 06-06-2023 Potassium [Moles/Vol] 4.6 mmol/L 3.5-5.1 [facility] Protein [Mass/volume] in Ser um or PlasmaOrdered By: Wendy Pastor on 06-06-2023 Protein [Mass/Vol] 6.2 g/dL 6.4-8.9 [facility] RBC Auto (Bld) [#/Vol]Ordere d By: Wendy Pastor on 06-06-2023 RBC (Bld) [#/Vol] 4.51 10*6/uL 3.90-5.60 [facility] Serum or plasma albumin/glob ulin mass ratioOrdered By: Wendy Pastor on 06-06-2023 Albumin/Globulin [Mass ratio] 2.0 {ratio} [facility] Serum or plasma anion gap de terminationOrdered By: Wendy Pastor on 06-06-2023 Anion gap [Moles/Vol] 11.0 mmol/L 6.0-15.0 [facility] Serum or plasma high density lipoprotein (HDL) cholesterol measurementOrdered By: Wendy Pastor on 06-06-2023 Cholesterol in HDL [Mass/Vol] 55 mg/dL 23-92 [facility] Comment on above: HDL CHOL ATP-III CLA SSIFICATION Cardiovascular RiskHDL > or equal to 60 mg/dL LOWHDL < 40 mg/dL HIGH Serum or plasma total choles terol/high density lipoprotein (HDL) cholesterol mass ratOrdered By: Wendy Pastor on 06-06-2023 Cholesterol.total/Liza sterol in HDL [Mass ratio] 3.7 {ratio} <5.0 [facility] Sodium [Moles/volume] in Ser um or PlasmaOrdered By: Wendy Pastor on 06-06-2023 Sodium [Moles/Vol] 138 mmol/L 136-145 [facility] Thyrotropin [Units/volume] i n Serum or PlasmaOrdered By: Wendy Pastor on 06-06-2023 TSH Qn 2.67 m[IU]/L 0.45-5.33 [facility] Triglyceride [Mass/volume] i n Serum or PlasmaOrdered By: Wendy Pastor on 06-06-2023 Triglyceride [Mass/Vol] 77 mg/dL 0-149 [facility] Comment on above: TRIG ATP III CLASSIF ICATIONTRIG less than 150 mg/dL NormalTRIG 150-199 mg/dL Borderline highTRIG 200-500 mg/dL High TRIG greater than 500 mg/dL Very highStandard traceable to the Center for Disease Conrtrol and Prevention (CDC) test method. Urea nitrogen [Mass/volume] in Serum or PlasmaOrdered By: Wendy Pastor on 06-06-2023 Urea nitrogen [Mass/Vol] 19 mg/dL 7-25 [facility] Vitamin D+Metabolites [Mass/ volume] in Serum or PlasmaOrdered By: Wendy Pastor on 06-06-2023 Vitamin D+Metabolites [Mass/Vol] 17.2 ng/mL 30-100 [facility] Comment on above: VITAMIN D STATUS 25( [place])VITAMIN D RANGE (ng/mL) Deficient <20 Insufficient 20 to <30Sufficient 30 to 100Reference: Polina MF,Mason NC, Fiona PUENTES, et al. Evaluation,treatment, and prevention of vitamin D deficiency; an Endocrine Society clinical practice guideline. JCEM. 2010; 96(7):1911-30. WBC Auto (Bld) [#/Vol]Ordere d By: Wendy Pastor on 06-06-2023 WBC (Bld) [#/Vol] 8.6 10*3/uL 4.1-10.5 [facility] SARS-CoV-2 (COVID-19) RNA NA A+probe Ql (Resp)on 03-06-2023 SARS-CoV-2 (COVID-19) RNA MICHAEL+probe Ql (Unsp spec) Negative [employer] Other COVID Quick Testingon 2021 Result Negative [employer] Other Quick Strepon 04-18-2022 S. pyogenes Org specific cx Ql (Throat) Negative [employer] Other Quick Strep [facility] Other COVID Quick Testingon 2021 Result Positive [facility] Other COVID Quick Testingon 2020 Result Negative [facility] Other Vital Signs Date Time Vital Sign Value Performing Clinician Facility 04-25-2024 09:27-0500 Blood Pressure Location Montrell HOLT [facility] 04-25-2024 09:27-0500 Body temperature 98.6 [degF] Montrell HOLT [facility] 04-25-2024 09:27-0500 Diastolic blood pressure 88 mm[Hg] Montrell HOLT [facility] 04-25-2024 09:27-0500 Heart rate 63 /min Montrell HOLT [facility] 04-25-2024 09:27-0500 Respiratory rate 18 /min Montrell HOLT [facility] 04-25-2024 09:27-0500 Systolic blood pressure 136 mm[Hg] Montrell HOLT [facility] 11-08-2023 09:47-0400 Body height 177.8 cm [facility] 11-08-2023 09:47-0400 Body mass index (BMI) [Ratio] 32.3 kg/m2 [facility] 11-08-2023 09:47-0400 Body temperature 97.6 [degF] [facility] 11-08-2023 09:47-0400 Body weight 102.05 kg [facility] 11-08-2023 09:47-0400 Diastolic blood pressure 81 mm[Hg] [facility] 11-08-2023 09:47-0400 Heart rate 61 /min [facility] 11-08-2023 09:47-0400 SaO2% (BldA) [Mass fraction] 95 % [facility] 11-08-2023 09:47-0400 Systolic blood pressure 145 mm[Hg] [facility] 08-20-2023 11:49-0400 Body temperature 98.4 [degF] DO [facility] 08-20-2023 11:49-0400 Body weight 106.59 kg DO [facility] 08-20-2023 11:49-0400 Diastolic blood pressure 82 mm[Hg] DO [facility] 08-20-2023 11:49-0400 Respiratory rate 20 /min DO [facility] 08-20-2023 11:49-0400 SaO2% (BldA) [Mass fraction] 98 % DO [facility] 08-20-2023 11:49-0400 Systolic blood pressure 148 mm[Hg] DO [facility] 06-05-2023 09:00-0500 Body height 177.8 cm DO [facility] 06-05-2023 09:00-0500 Body weight 106.59 kg DO [facility] 06-05-2023 09:00-0500 Diastolic blood pressure 76 mm[Hg] DO [facility] 06-05-2023 09:00-0500 Systolic blood pressure 130 mm[Hg] DO [facility] 03-06-2023 11:00-0400 Body height 177.8 cm Keila Chen Other [employer] Other 03-06-2023 11:00-0400 Body mass index (BMI) [Ratio] 32.28 kg/m2 Keila Chen Other [employer] Other 03-06-2023 11:00-0400 Body temperature 98.2 [degF] Keila Chen Other [employer] Other 03-06-2023 11:00-0400 Body weight 102.06 kg Keila Chen Other [employer] Other 03-06-2023 11:00-0400 Respiratory rate 18 /min Keila Chen Other [employer] Other 03-06-2023 11:00-0400 SaO2% (BldA) [Mass fraction] 98 % Keila Chen Other [employer] Other 05-30-2022 16:15-0500 Body height 177.8 cm Wendy Pastor Other [employer] Other 05-30-2022 16:15-0500 Body mass index (BMI) [Ratio] 33.23 kg/m2 Wendy Pastor Other [employer] Other 05-30-2022 16:15-0500 Body temperature 98.7 [degF] Wendy Pastor Other [employer] Other 05-30-2022 16:15-0500 Body weight 105.05 kg Wendy Pastor Other [employer] Other 05-30-2022 16:15-0500 Diastolic blood pressure 78 mm[Hg] Wendy Pastor Other [employer] Other 05-30-2022 16:15-0500 Respiratory rate 18 /min Wendy Pastor Other [employer] Other 05-30-2022 16:15-0500 SaO2% (BldA) [Mass fraction] 98 % Wendy Pastor Other [employer] Other 05-30-2022 16:15-0500 Systolic blood pressure 130 mm[Hg] Wendy Psator Other [employer] Other 04-18-2022 10:15-0500 Body height 177.8 cm Lydiara Martines Other [employer] Other 04-18-2022 10:15-0500 Body mass index (BMI) [Ratio] 32.57 kg/m2 Lydiara Martines Other [employer] Other 04-18-2022 10:15-0500 Body temperature 98 [degF] Lydia Conrad Other [employer] Other 04-18-2022 10:15-0500 Body weight 102.97 kg Lydia Conrad Other [employer] Other 04-18-2022 10:15-0500 Diastolic blood pressure 88 mm[Hg] Lydia Conrad Other [employer] Other 04-18-2022 10:15-0500 SaO2% (BldA) [Mass fraction] 98 % Lydia Conrad Other [employer] Other 04-18-2022 10:15-0500 Systolic blood pressure 134 mm[Hg] Lydia Conrad Other [employer] Other 11-24-2021 10:20-0400 Body height 177.8 cm Chasidy Matthew Other [employer] Other 11-24-2021 10:20-0400 Body mass index (BMI) [Ratio] 32.28 kg/m2 Chasidy Matthew Other [employer] Other 11-24-2021 10:20-0400 Body temperature 98.4 [degF] Chasidy Matthew Other [employer] Other 11-24-2021 10:20-0400 Body weight 102.06 kg Chasidy Matthew Other [employer] Other 11-24-2021 10:20-0400 Respiratory rate 18 /min Chasidy Matthew Other [employer] Other 11-24-2021 10:20-0400 SaO2% (BldA) [Mass fraction] 98 % Chasidy Vipul Other [employer] Other 02-15-2021 18:05-0400 Body height 177.8 cm Phumariano Nataly Other [employer] Other 02-15-2021 18:05-0400 Body mass index (BMI) [Ratio] 32.28 kg/m2 Keila Ingram Other [employer] Other 02-15-2021 18:05-0400 Body temperature 97.6 [degF] Keila Ingram Other [employer] Other 02-15-2021 18:05-0400 Body weight 102.06 kg eKila Ingram Other [employer] Other 02-15-2021 18:05-0400 Respiratory rate 16 /min Keila Ingram Other [employer] Other 02-15-2021 18:05-0400 SaO2% (BldA) [Mass fraction] 95 % Keila Ingram Other [employer] Other Encounters Encounter Date Encounter Type Care Provider Facility Start: 06-16-2024 End: 06-16-2024 ambulatory Montrell HOLT Facility:[facility] Start: 06-16-2024 End: 06-16-2024 Lab Drop off Montrell HOLT [facility] Start: 06-16-2024 End: 06-16-2024 ambulatory Montrell HOLT Facility:[facility] Start: 06-16-2024 End: 06-16-2024 Patient encounter procedure Montrell HOLT [facility] Start: 06-05-2024 End: 06-05-2024 ambulatory Montrelllinda HOLT Facility:CD:[id number] Start: 05-29-2024 ambulatory Montrell Delmi HOLT Facili ty:[id number] Start: 05-23-2024 End: 05-23-2024 ambulatory NABILATRIPP JAVIER Facility:[facility] Start: 05-23-2024 End: 05-23-2024 Patient encounter procedure NABILA E CONCEPCION [facility] Start: 05-22-2024 End: 05-22-2024 ambulatory Melvi Zamudio RN NURSE MEETING COORDINATOR Start: 05-22-2024 End: 05-22-2024 Patient encounter procedure Melvi Zamudio RN NURSE MEETING COORDINATOR Comment on above: Clinical Update Start: 05-19-2024 End: 05-19-2024 Emergency department patient visit Richard Ramirez Facility:[facility] Start: 05-19-2024 End: 05-19-2024 ambulatory Montrelllinda Holt Facility:[facility] Start: 04-30-2024 ambulatory Montrelllinda HOLT Facility :[facility] [place] Start: 04-27-2024 End: 04-27-2024 Emergency department patient visit Amandeep Kimberly Facility:[facility] Start: 04-26-2024 End: 04-26-2024 Emergency department patient visit Mac Wolf Facility:[facility] Start: 04-25-2024 End: 04-25-2024 ambulatory Montrell Delmi HOLT Facility:[id number] Start: 04-25-2024 End: 04-25-2024 ambulatory Montrell Delmi HOLT Facility:[facility] Start: 04-25-2024 End: 04-25-2024 Patient encounter procedure [facility] Start: 04-23-2024 End: 04-23-2024 Emergency department patient visit Abdi Lobo Facility:[facility] Start: 11-08-2023 End: 11-08-2023 ambulatory [facility] Work Phone: Start: 11-08-2023 End: 11-08-2023 Patient encounter procedure [facility] Work Phone: Start: 08-20-2023 End: 08-20-2023 ambulatory DO [facility] [place] Work Phone: Start: 08-20-2023 End: 08-20-2023 Patient encounter [facility] [place] Work Phone: Start: 06-07-2023 End: 06-07-2023 ambulatory Wendy Pastor Other [employer] Other Start: 06-07-2023 Telephone encounter Wendy Barlow [facility] Start: 06-06-2023 End: 06-06-2023 ambulatory DO [facility] Work Phone: Start: 06-06-2023 End: 06-06-2023 Patient encounter procedure DO [facility] Work Phone: Start: 06-05-2023 End: 06-05-2023 Patient encounter procedure DO [facility] Work Phone: Start: 03-06-2023 End: 03-06-2023 ambulatory Keila Chen Other [employer] Other Start: 03-06-2023 Office outpatient vi sit 15 minutes Keila Chen [facility] [address] Start: 06-11-2022 End: 06-11-2022 ambulatory Wendy Pastor Other [employer] Other Start: 06-11-2022 Telephone encounter Wendy Pastor [facility] Start: 05-30-2022 End: 05-30-2022 ambulatory Wendy Pastor Other [employer] Other Start: 05-30-2022 Encounter for genera l adult medical examination without abnormal findings Wendy Pastor [facility] Start: 05-30-2022 FQ visit new patient Wendy hillman [facility] Start: 05-30-2022 Patient encounter procedure Wendy Pastor [facility] Start: 05-03-2022 End: 05-03-2022 ambulatory Wendy Pastor Other [employer] Other Start: 05-03-2022 Telephone encounter Wendy Barlow [facility] Start: 04-18-2022 End: 04-18-2022 ambulatory Lydia Martines Other [employer] Other Start: 04-18-2022 Office outpatient vi sit 15 minutes Lydiara Martines [facility] Start: 04-02-2022 End: 04-02-2022 ambulatory Chasidy Matthew Other [employer] Other Start: 04-02-2022 Telephone encounter Chasidy Matthew [facility] Start: 11-24-2021 End: 11-24-2021 ambulatory Chasidy Matthew Other [employer] Other Start: 11-24-2021 Office outpatient vi sit 25 minutes Chasidy Matthew [facility] Start: 11-24-2021 Telephone encounter Wendy Barlow [facility] Start: 02-15-2021 Office outpatient vi sit 15 minutes Keila Ingram [facility] [address] Procedures Date Procedure Procedure Detail Performing Clinician Arthritis (disorder) Montrell HOLT Plan of Treatment Date Care Activity Detail Author Start: 2026 RSV Vaccine (1 - 1-d ose 75+ series) RSV Vaccine (1 - 1-dose 75+ series) [facility] Start: 12-08-2024 ambulatory Ambulatory Facility:[facility] Start: 05-26-2024 End: 05-26-2024 Patient encounter procedure 05/26/2024 10:30 AM EST Office Visit Urology [address] [facility] [place] [address] Сергей Rico PA-C [address] [place] [address] [facility] Comment on above: [facility] Start: 05-21-2024 Advance Directive Discussion Advance Directive Discussion [facility] Start: 01-20-2024 Covid-19 Vaccine ( season) Covid-19 Vaccine ( season) [facility] Start: 01-20-2024 Influenza vaccination Influenza Vacc ine (#1) [facility] Start: 2001 Pneumococcal Vaccine : 50+ (1 of 1 - PCV) Pneumococcal Vaccine: 50+ (1 of 1 - PCV) [facility] Start: 2001 Shingrix Vaccine (1 of 2) Shingrix Vaccine (1 of 2) [facility] Start: 1996 Diabetes Screening Diabetes Screenin g [facility] Start: 1996 Screening for malign ant neoplasm of colon [facility] Start: 1986 Lipid panel Lipid Screening [facility] Start: 1970 Urine microalbumin profile DTaP,Tdap,Td Vaccine (1 - Tdap) [facility] Start: 1969 Anxiety Screening Anxiety Screening [facility] Start: 1969 Depression Screening Depression Scre ening [facility] Start: 1969 Hepatitis C screening Hepatitis C [facility] Glucose measurement estimated from glycated hemoglobin [facility] Immunizations Immunization Date Immunization Notes Care Provider Fa ed 06-05-2023 influenza virus vaccine, unspecified formulation DO Nita Hernandez [facility] 06-05-2023 Prevnar 20 Wendy Pastor Other [facility] 06-05-2023 influenza, high dose seasonal, preservative-free Wendy Pastor Other [facility] Other 05-30-2022 influenza, high dose seasonal, preservative-free Wendy Pastor Other [employer] Other 05-30-2022 influenza virus vaccine, unspecified formulation DO [facility] 08-22-2020 COVID-19 Vaccine Pfi zer - Documentation Purposes Only Wendy Pastor Other [facility] Comment on above: Result Comment: 2023: [id number] 07-31-2020 COVID-19 Vaccine Pfi zer - Documentation Purposes Only Wendy Pastor Other [facility] Comment on above: Result Comment: 2023: [id number] 02-05-2020 Toradol per 15 mg Calley Ethan gabo Other [employer] Other 10-16-2019 Toradol per 15 mg Calley Ethan gabo Other [employer] Other 01-14-2019 Toradol per 15 mg Calley Ethan gabo Other [employer] Other 09-08-2016 Toradol per 15 mg Calley Ethan gabo Other [employer] Other 03-20-2014 influenza, injectabl e, quadrivalent, preservative free Keila Ingram Other [employer] Other 03-20-2014 influenza, injectabl e, quadrivalent, contains preservative DO [facility] 07-17-2013 pneumococcal polysaccharide vaccine, 23 valent Keila Ingram Other [facility] 07-17-2013 tetanus toxoid, redu flori diphtheria toxoid, and acellular pertussis vaccine, adsorbed Keila Ingram Other [employer] Other 07-17-2013 tetanus and diphther ia toxoids, adsorbed, preservative free, for adult use (2 Lf of tetanus toxoid and 2 Lf of diphtheria toxoid) Montrell HOLT [facility] 07-17-2013 tetanus and diphther ia toxoids, adsorbed, preservative free, for adult use (5 Lf of tetanus toxoid and 2 Lf of diphtheria toxoid) [facility] Payers Date Payer Category Payer Medicare DEVOTED MEDICARE [facility] [place] PPO [id number] 2024-Present [phone] [address] [place] [address] PPO [id number] 2024 Self-pay [id number] 2024 Unknown [id number] 2023 Medicare [id number] 1950 Unknown [id number] [id number]. 1950 Unknown [id number] [id number]. 1950 Unknown [id number] 2.16.840.1.134677.3.579.2. 1950 Unknown [id number] [id number] 1950 Unknown [id number] [id number] 1950 Unknown [id number] [id number] 1950 Unknown [id number] [id number] Medicare [id number] [id number] Medicare Medicare Nonpatient [id number] [id number] Unknown [id number] Unknown [place] BC/BS [id number] Unknown [id number] [id number] Unknown [id number] [id number] Unknown [id number] [id number] Unknown [id number] [id number] Unknown [id number] Social History Date Type Detail Facility Unknown if ever smoked [facility] [facility] Other Sex Assigned At [facility] Start: 09-26-2020 End: 09-26-2020 Tobacco smoking status NHIS Ex-smoker (finding) [facility] Start: 1950 Sex Assigned At Male [facility] Start: 04-25-2024 Tobacco smoking status Never smoked tobacco (finding) [facility] Tobacco smoking status Never [facility] Tobacco smoking status NHIS Tobacco smoking consumption unknown [facility] Start: 1950 [facility] Functional Status Date Assessment Result Facility 04-25-2024 Functional Status N/A [facility] Clinical Notes 01-19-2018 to 05-22-2024 Telephone [...] like to see a doctor here at [facility]. Conferenced to the Appointment Center for scheduling with urology. GO TO THE EMERGENCY ROOM OR CALL 911 IF: * You develop any new symptoms * Your condition worsens * You are concerned or anxious about your condition for any other reason. If you have any questions, you can call Nurse precision inspector back. [facility] 05-22-2024 Miscellaneous Notes Formattin g of this [...] like to see a doctor here at [facility]. Conferenced to the Appointment Center for scheduling with urology. GO TO THE EMERGENCY ROOM OR CALL 911 IF: * You develop any new symptoms * Your condition worsens * You are concerned or anxious about your condition for any other reason. If you have any questions, you can call Nurse precision inspector back. documented in this encounter [facility] 04-25-2024 Hospital Discharg e instructions Patient Education [...] including vitamins, herbs, eye drops, creams, and xqht-htv-jgmbjgz medicines. Any problems you or family members [...] health care provider tells you to. Taking udws-rwr-nxtlfuu medicines, vitamins, herbs, and supplements. Tests You [...] provider. Document Revised: 09/07/2022 Document Reviewed: 09/07/2022 [employer] Patient Education 2023 [employer] Follow Up Care 04/23/2024 11:37:15 With:SARA MUNSON, Montrell Awad, URL Address: [address] [place] [id number] When: Unknown [facility] 04-25-2024 Note Patient Education Nephrology ESWL [...] including vitamins, herbs, eye drops, creams, and huia-ual-rdcjghc medicines. ??? Any problems you or family [...] care provider tells you to. ??? Taking yzvz-xwv-mehdjdp medicines, vitamins, herbs, and supplements. Tests You [...] to you b (more content not included)... [facility] 03-06-2023 Evaluation note Encounter Date Diagnosis Assessment [...] Pt understood and agreed to tx plan. [employer] Other 01-10-2023 Evaluation note* Encounter Date Diagnosis [...] if positive, they will need a colonoscopy. [employer] Other 11-29-2022 Evaluation note* Encounter Date Diagnosis Assessment Notes Treatment Notes Treatment Clinical Notes Mar, Sore throat (ICD-10 - J02.9) Strep test was negative. He as educated on supportive care such as increasing fluids, good hand washing and OTC medication for symptoms relief. He will follow up if symptoms worsen or do not resolve. Mar, Congestion of nasal sinus (ICD-10 - R09.81) [employer] Other 07-07-2022 Evaluation note* Encounter Date Diagnosis [...] treatment plan. Patient left in stable condition [employer] Other 09-28-2021 Evaluation note* Encounter Date Diagnosis [...] coughing patient may take otc cough medicine. [place] diet and avoid spicy/greasy/dairy food. Pt to [...] given in writting by [facility] Home document. [employer] Other 09-01-2018 History general Narrative - Reported* Type Description Date Medical History [place] (wears hearing aides) Medical History H/o renal stones Medical History Shingles 01/2018 Surgical History lithotripsy 10/2013 Surgical History left uretral stent 10/2013 Surgical History T & A Surgical History Vasectomy 1976 Hospitalization History PROSTATE INFECTION Hospitalization History kidney stones [employer] Other 09-01-2018 History general Narrative - Reported* Type Description Date Medical History [place] (wears hearing aides) Medical History H/o renal stones Medical History Shingles 01/2018 Medical History glaucoma Surgical History lithotripsy 10/2013 Surgical History left uretral stent 10/2013 Surgical History T & A Surgical History Vasectomy 1976 Hospitalization History PROSTATE INFECTION Hospitalization History kidney stones [employer] Other 09-01-2018 History general Narrative - Reported* Type Description Date Medical History [place] (wears hearing aides) Medical History H/o renal stones Medical History Shingles 01/2018 Medical History glaucoma Surgical History lithotripsy 10/2013 Surgical History left uretral stent 10/2013 Surgical History T & A Surgical History Vasectomy 1976 Surgical History cataract 2022 Hospitalization History PROSTATE INFECTION Hospitalization History kidney stones [facility] [employer] Other Evaluation + Plan note No data available for this section [facility] evaluation + Plan note Future Appointments Appointment Date:12/08/2024 10:30:00 AM Scheduled Provider:Montrell HOLT MD Location:[facility] Appointment Type:URO Office Visit Diagnostic Tests Pending * Calculi Analysis Urinary 06/16/24 [facility] Evaluation + Plan note Future Appointments Appointment Date:12/08/2024 10:30:00 AM Scheduled Provider:Montrell HOLT MD Location:[facility] Appointment Type:URO Office Visit [facility] evaluation noteNo [facility] [employer] Other Evaluation noteNo assessment information available [facility] Work Phone: Evaluation note* Diagnosis Onset Date Resolution Status Abscess noneactive Dermatitis noneactive [facility] Work Phone: Hospital Discharge instructions No data available for this section [facility] [place] Progress note No data available for this section [facility] Advance Directives No Advanced Directives Records Found [...] Relationship Condition Age at Onset Recorded Date/T manan father Malignant melanoma Unknown Unknown Malignant neoplasm [...] this informatio n is protected by the Federal Confidentiality of Alcohol and Drug Abuse Patient Records regulations: The Federal rules restrict any use of the information to criminally investigate or prosecute any alcohol or drug abuse patient.[facility] (unrecognized sect ion and content) No Status Records FoundNo Status Records FoundNo Status Records Found INFORMATION SOURCE (unrecogn ized section and content) DATE CREATED AUTHOR 06/06/2024 [facility] DATE CREATED AUTHOR AUTHOR'S ORGANIZ ATION 06/22/2024 [facility] DATE CREATED AUTHOR AUTHOR'S ORGANIZ ATION 06/25/2024 [facility] FOR RECORDS PERTAINING TO PATIENTS WHO ARE [...] BE BASED ON THE PRIMARY CLINICAL RECORDS. [facility] Stop Being Watched [facility]. provides no warranty or guarantee of the accuracy or completeness of information in this document.
== END 2024-12-06 10:33 | disposition home or self-care (01) ==
LOC: RAD 10:35
PROVIDERS: PCP Student in an Organized Health Care Education/Training Program; Visit Provider Urology
DX: N20.0 Calculus of kidney (principal)
CPT/HCPCS: 74018

== ENCOUNTER 2025-03-20 12:17 | Outpatient (OUT) | payer OTHER, SELFPAY ==
--- OUTSIDE RECORDS SUMMARY | 2025-03-20 12:24 | XMS_ITS | Clinical Summary ---
Author Organization [facility] Address [address] [place] [address] Care Team Providers Care Termite Treater Name Role Phone Unavailable Primary Care Provider Unavailabl e Social History Tobacco UseTypesPacks/DayYears UsedDateSmoking Tobacco: Never AssessedSex and Gender InformationValueDate RecordedSex Assigned at BirthNot on fileLegal Sex Male08/02/2022 7:09 PM EDTGender IdentityNot on fileSexual OrientationNot on file Last Filed Vital Signs Vital SignReadingTime TakenCommentsBlood Sxifkhoz460/8207/21/2019 12:00 PM EST Pulse--Temperature--Respiratory Rate--Oxygen Saturation--Inhaled Oxygen Concentration--Dfgrky524 kg (235 lb 6.4 oz)07/21/2019 12:00 PM PNQKoifqz996.3 cm (5' 9 )07/21/2019 12:00 PM ESTBody Mass Index34.76007/21/2019 12:00 PM EST Plan of Treatment Not on file Insurance
--- OUTSIDE RECORDS SUMMARY | 2025-03-20 12:26 | XMS_ITS | CCD ---
Author Organization [facility] Inform ion [facility] Care Team Providers Care Terminal Superintendent Name Role Phone Keila Ingram Unavailable Chasidy Matthew Unavailable Wendy Pastor Unavailable Lydia Martines Unavailable Keila Chen Unavailable DO Nita Hernandez Primary Care Provider DO Wendy Khanna Attending Provider [phone] DO Nita Hernandez Primary Care Provider DO Wendy Khanan Attending Provider JEWEL TORRES Primary Care Physician Unavailable Primary Care Provider Unavailjono e Richard Ramirez Admitting Unavailable Richard Ramirez Attending [...] Unavailable Jewel Torres Primary Care Unavailable Montrell HOTL Attending Unavailable Montrell HOLT Admitting Unavailable Montrell HOLT Attending Unavailable Montrell HOLT Referring Unavailable Montrell HOLT Attending Unavailable Montrell HOLT Attending Unavailable Montrell HOLT Attending Unavailable STEFANIE JAVIER Attending Unavailab Montrell Arita Attending Unavailable Montrell HOLT Attending Unavailable Montrell HOLT Attending Unavailable Medications Current Medications MedicationDrug Class(es)DatesSig (Normalized)Sig (Original)[id number] 200 actuat albuterol 0.09 mg/actuat metered dose inhaler (2 sources)beta2-Adrenergic AgonistStart: 61-03-1861wztd 2 puff(s) by inhalation every four hours as neededAlbuterol Sulfate HFA 108 (90 Base) MCG/ACT 2 puffs as needed Inhalation every 4 hrs Feb, ActiveStart: 48-73-5521pjro 2 puff(s) by inhalation every four hours as neededAlbuterol Sulfate HFA 108 (90 Base) MCG/ACT 2 puffs as needed Inhalation every 4 hrs Feb, Not-Taking/PRN amoxicillin 875 mg / clavulanate 125 mg oral tablet (1 source)Penicillin-class AntibacterialStart: 36-63-8098qjht 1 tablet by mouth twice dailyAmoxicillin-Pot Clavulanate Active 1 TAB PO Twice daily 09 03November 08, 2023 12:00amazithromycin 250 mg oral tablet (3 sources)Macrolide AntimicrobialStart: 24-27-6769egul 2 tablets by mouth once daily, then take 1 tablet by mouth once daily, then take 2-5 tablets by mouth once dailyZithromax Z-Jose 250 MG 2 tablets on day 1, then 1 tablet on days 2-5 Orally once a day for 5 days Feb, ActiveStart: 26-83-5958Fmcyhkrvwway 250 MG 2 tablet on the first day, then 1 tablet daily for 4 days Orally Once a day for5 day(s) Mar, Not-Takingbenzonatate 200 mg oral capsule (2 sources)Non-narcotic AntitussiveStart: 68-27-3102rdhe 200 mg by mouth twice dailyBenzonatate Active 200 MG PO Twice daily November 08, 2023 12:00amStart: 30-96-2741nhuh 1 capsule by mouth every eight hoursBenzonatate 200 MG 1 capsule Orally Three times a day for 10 Feb, Activeergocalciferol 1.25 mg oral capsule (1 source)Provitamin D2 CompoundStart: 79-42-2137xidt 1 capsule by mouth every weekErgocalciferol 32593 UNIT 1 capsule Orally Weekly for 90 days May, Activelatanoprost 0.05 mg/ml ophthalmic solution (6 sources)Prostaglandin AnalogStart: 56-55-3889guvaqcjzuue Opth 0.005% Heena 1 drop(s), OPTH, Once a day (at bedtime), 2.5 mL, Refill(s) 0 Start Date: 04/25/24 Status: Ordered Quantity: 2.5 Unit: mL Repeat number: 1Start: 04-77-3557mhgc 1 drop(s) into the eye(s) once dailyLatanoprost Active 1 DROPS EYE-BOTH Daily November 08, 2023 12:00ammethylPREDNISolone 4 mg oral tablet (1 source)CorticosteroidStart: 28-45-7454ygeouaSUFNQFFpbywi 4 MG as directed Orally Feb, Activeoxybutynin chloride 5 mg oral tablet (3 sources)Cholinergic Muscarinic AntagonistStart: 38-66-8326reag 1 tablet by mouth twice daily as neededoxybutynin 5 mg Tab 5 mg = 1 tab(s), Oral, BID, PRN for urinary discomfort, # 30 tab(s), Refills(s)0, Pharmacy: [facility], 178, cm, 04/25/24 9:34:00 EST, Height/Length Dosing, 101.5, kg, 04/25/24 9:34:00 EST, Weight Dosing Start Date: 05/23/24 Status: OrderedPaxlovid 20 x 150 MG & 10 x 100MG (2 sources)Start: 86-13-0436ajxc 1 dose by mouth twice dailyPaxlovid 20 x 150 MG & 10 x 100MG 1 dose Orally twice a day for 5 days Nov, Activetamsulosin hydrochloride 0.4 mg oral capsule (5 sources)alpha-Adrenergic BlockerStart: 93-13-0350nkdi 1 capsule by mouth twice dailytamsulosin 0.4 mg Cap 0.4 mg = 1 cap(s), Oral, BID, # 60 cap(s), Refills(s) 0, Pharmacy: [facility], 178, cm, 04/25/24 9:34:00 EST, Height/Length Dosing, 101.5, kg, 04/25/24 9:34:00 EST, Weight Dosing Start Date: 05/26/24 Status: OrderedStart: 45-79-4103ltwb 1 capsule by mouth once daily tamsulosin 0.4 mg Cap 0.4 mg = 1 cap(s), Oral, Daily, # 14 cap(s), Refills(s) 1, Pharmacy: [facility], 178, cm, 04/25/24 9:34:00 EST, Height/Length Dosing, 101.5, kg, 04/25/24 9:34:00EST, Weight Dosing Start Date: 05/23/24 Status: Orderedvibegron 75 MG Oral Tablet [Gemtesa] (3 sources)Start: 05-23-2024 End: 51-41-9006topu 1 tablet by mouth once dailyGemtesa 75 mg oral tablet 75 mg = 1 tab(s), Oral, Daily, X 14 day(s), # 14 tab(s), Refills(s) 1, Pharmacy: [facility], 178, cm, 04/25/24 9:34:00 EST, Height/Length Dosing, 101.5, kg, 04/25/24 9:34:00 EST, Weight Dosing Start Date: 05/23/24 Stop Date: 06/20/24 Status: Ordered Completed/Discontinued Medications MedicationDrug Class(es)DatesSig (Normalized)Sig (Original)doxycycline hyclate 100 mg oral tablet (2 sources)Tetracycline-class DrugStart: 08-20-2023 End: 26-93-7565juri 100 mg by mouth twice dailyDoxycycline Hyclate Discontinued 100 MG PO Twice daily 14 August 20, 2023 12:00am November 0749:46am hydrOXYzine hydrochloride 25 mg oral tablet (2 sources)AntihistamineStart: 11-97-8569ummk 1 tablet by mouth every twenty- four hourshydrOXYzine HCl 25 MG 1 tablet at bedtime as needed Orally Once a day for 7 day(s) Mar, Not-TakingKetorolac (20 sources)Nonsteroidal Anti-inflammatory Drug, Cyclooxygenase InhibitorStart: 89-54-2126Ikaxapz per 15 mg Jan, 60 mgStart: 34-62-6617Dgljwrp per 15 mg September, 60 mgStart: 66-91-2566Uppryah per 15 mg Dec, 60 mgStart: 05-06-1508Uftevxb per 15 mg Aug, 60 mgpenicillin v potassium 500 mg oral tablet (2 sources)Start: 78-74-9748aisu 1 tablet by mouth every twelve hoursPenicillin V Potassium 500 MG 1 tablet Orally Twice a day for 10 day(s) Mar, Not-TakingpredniSONE 20 mg oral tablet (2 sources)Start: 08-20-2023 End: 15-15-1285Vizntpxbmr Discontinued 20 MG PO Daily August 20, 2023 12:00am November 08, 2023 9:46am Take 3 pills x3 days, 2 pills x3 days, 1 pill x 3 days Problems Active Problems Problem ClassificationProblemDateDocumented DateEpisodic/ChronicAbdominal pain (2 sources)Unspecified abdominal pain; Translations: [Right lower quadrant pain] Onset: 63-29-3668PurqxiphPgmsc bronchitis (1 source)Acute bronchitis, unspecifiedEpisodicAllergic reactions (1 source)Dermatitis, unspecified; Translations: [Contact dermatitis and other eczema, unspecified cause]45-70-8326PfkawxslXrhrlzce of urinary tract (9 sources)Kidney stone; Translations: [Calculus of kidney]Onset: 04-25-2024 EpisodicDisorders of lipid metabolism (10 sources)Hypercholesterolemia; Translations: [Pure hypercholesterolemia, unspecified]ChronicGenitourinary symptoms and ill-defined conditions (1 source)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; Translations: [Encounter forattention to other artificial openings of urinary tract]Onset: 50-50-5255WehslepMuqlftfxbitjm symptoms and ill-defined conditions (2 sources)Sensation as if bladder still full; Translations: [Feeling of incomplete bladder emptying]Onset: 05-65-9698GawcrximDfbrwgvutbs deficiencies (10 sources)Vitamin D deficiency; Translations: [Vitamin D deficiency, unspecified]ChronicOpen wounds of extremities (3 sources)Laceration of left thumb; Translations: [Laceration without foreign body of left thumb without damage to nail, initial encounter]23-59-2602Jtvjboff Osteoarthritis (10 sources)Degenerative joint disease of shoulder region; Translations: [Primary osteoarthritis, right shoulder]ChronicOther connective tissue disease (10 sources)Full thickness rotator cuff tear; Translations: [Complete rotator cuff tear or rupture of right shoulder, not specified as traumatic]EpisodicOther diseases of kidney and ureters (2 sources)Urinary tract obstruction; Translations: [Hydronephrosis with renal and ureteral calculous obstruction]Onset: 04-41-3239PrhnuukqHzsrq inflammatory condition of skin (10 sources)Seborrheic dermatitis; Translations: [Seborrheic dermatitis, unspecified]EpisodicOther nutritional; endocrine; and metabolic disorders (10 sources)Body mass index 30+ - obesity; Translations: [Body mass index (BMI) 32.0-32.9, adult]ChronicOther screening for suspected conditions (not mental disorders or infectious disease) (2 sources)Encounter for screening for malignant neoplasm of colon; Translations: [Encounter for screening formalignant neoplasm of prostate]Onset: 71-51-1918DistdbdhZhztb upper respiratory disease (1 source)Nasal congestionEpisodicOther upper respiratory infections (2 sources)Acute upper respiratory infection, unspecified; Translations: [Acute pharyngitis, unspecified]Onset: 02-15-2021 Resolved: 16-30-8147VzcticojCnqg and subcutaneous tissue infections (1 source)Cutaneous abscess, unspecified; Translations: [Cellulitis and abscess of unspecified sites]58-20-9934ZtanoobwFzjzpjeeaojd (4 sources)Obstructive cazgccpawjtepg07-75-2089Tsddnfyktpdg (1 source)Patient encounter vjklcy98-80-6761 Past or Other Problems Problem ClassificationProblemDateDocumented DateEpisodic/ChronicImmunizations and screening for infectious disease (1 source)Contact with and (suspected) exposure to other viral communicable diseases; Translations: [Contact with and (suspected) exposure to other viral communicable diseases Z20.828]Onset: 02-15-2021 Resolved: 92-80-5115LrkilmhpXhlwalbifdxj (2 sources)Cough R05.9Onset: 11-24-2021 Resolved: 27-72-9149Sfzqm infection (1 source)COVID-19Onset: 11-24-2021 Resolved: 11-24-2021 Results Test NameValueInterpretationReference RangeFacilityUrology Office/Clinic Noteon 72-65-9031Unvdgjf Office/Clinic NoteUrology Office/Clinic Note Chief Complaint 7 month f/u with [facility] HPI Staff 6 month f/u with [facility]. Dx: kidney stone and ureteral stone with hydronephrosis IPSS score of 3 today. Frequency, intermittency and weak stream less than 1 in 5x. Denies all other urinary concerns at this time. No visible blood or pain of any kind. No urologic meds. History of Present Illness Tests reviewed: UA, [facility], op notes, stone analysis I have reviewed the previous health record information and history for this patient from Dr. Holt. I have reviewed and verified the staff HPI to be accurate for this encounter. Review of Systems PHQ Score Initial [...] Physical Exam Vitals & Measurements T: 37 ???C(Temporal Artery) HR: 72(Peripheral) RR: 18 BP: 137/81 HT: 70 in HT: 178 cm WT: 234.131 lb WT: 106.2 kg BMI: 33.52 General Appearance: alert, no distress, well nourished, well developed adult. Assessment/Plan 1. Ureteral stone with hydronephrosis (N13.2: Hydronephrosis with renal and ureteral calculous obstruction) [facility] [place] 04/23/24 RLQ pain and N/V. He has been having intermittent pain/nausea for several weeks ormonths...he is unsure. CT AP w con 04/23/24 - 7 mm right UPJ stone with moderate hydronephrosis. [facility] 04/23/24 FR - R UPJ stone seen on CT is visualized. Measures 5 mm. Mild fullness is present on the right. S/p R ESWL, cysto, R stent placement 04/25/24 for R renal pelvic stone. Stone analysis - 100% CaOx mono. Resolved. Reviewed stone analysis with pt. 2. Kidney stone (N20.0: Calculus of kidney) CT AP w con 04/23/24 [facility] - Punctate right calyceal stone. [facility] 04/23/24 [facility] - No stones. S/p R ESWL, cysto, R stent placement 04/25/24. S/p cysto, R stent removal, R urs, R pyelo, laser litho of R renal stone 06/05/24. [facility] 12/06/24 [facility] [place] - Neg. Previously noted R stone not id'd. UA neg. Reviewed imaging with pt. Estimates he drinks one gallon of fluids daily. Discussed metabolic workup including 24 hour urine and blood work for stone prevention. Voices this is not a good time for him to complete 24hr urine d/t, wishes to complete at a later date when he is less busy. This is fine. Follow up Jun 2025 with metabolic workup (urine and blood) or sooner if needed. Pt understands and agrees with plan. -Complete metabolic workup (urine and blood) 04/2025 -[facility] due 11/2025 3. Screening PSA (prostate specific antigen) (Z12.5: Encounter for screening for malignant neoplasmof prostate) PSA: 04/02/18 - 0.85 *last PSA on [facility] IPSS 3. Pt does not see PCP regularly, only when issues arise. -PSA to be drawn IO today Follow-up With When Contact Information SARA MUNSON, Montrell Awad, URL [facility] [address], [place] [address]- Additional Instructions: Follow up Jun 2025 with metabolic workup (urine and blood) Patient Education 24-Hour Urine Collection Dietary Guidelines to Help Prevent Kidney Stones I, Antonina Green, personally scribed for Dr. Holt on 12/08/2024 12:11:56. . Documentation recorded by the scribe, Antonina Green, accurately reflects the services(s) I performed and decisions made by me. Authenticated by Dr. Holt on 12/08/2024 12:13:55. Problem List/Past Medical History Ongoing Kidney stone Screening PSA (prostate specific antigen) Historical No qualifying data Procedure/Surgical History ESWL of kidney (04/25/2024), Arthritis. Medications latanoprost Opth 0.005% Heena, 1 drop(s), OPTH, Once a day (at bedtime) Allergies No Known Allergies Social History Alcohol Current, Beer, Daily, 04/25/2024 Substance Abuse Never, 04/25/2024 Tobacco Never (less than 100 in lifetime) Tobacco Use:. Never Smokeless Tobacco Use:. Household tobacco concerns: No., 12/08/2024 Family History High cholesterol: Mother. Melanoma of skin: Father. Immunizations Vaccine Date Status Comments pneumococcal 20-valent conjugate vaccine 06/05/2023 Recorded influenza virus vaccine, inactivated 06/05/2023 Recorded influenza virus vaccine, inactivated 05/30/2022 Recorded SARS-CoV-2 (COVID-19) mRNA BNT-162b2 vax 08/22/2020 Recorded 2024-04-25: TPV65 SARS-CoV-2 (COVID-19) mRNA BNT-162b2 vax 07/31/2020 Recorded 2024-04-25: TPV65 tetanus-diphtheria toxoids 07/17/2013 Recorded Lab Results Ambulatory Point of Care Results Bilirubin Urine Dipstick: Negative (12/08/24 10:52:00) Blood Urine Dipstick: Negative (12/08/ (more content not included)...Normal [facility] above:Result Comment: Electronically Signed By: Montrell HOLT MD\.br\Date and Time Signed: 12/08/24 12:14 EDT\.br\Electronically Co-Signed By: Antonina Green\.br\Date and Time Co- Signed: 12/08/24 12:12 EDTCalculus Analysison 38-96-9433Sfgcoqk oxalate monohydrate (Stone) [Mass fraction]100 %Invalid Interpretation [facility] HospitalComment on above:Performed By: #### [id number] #### [facility] [address] [place], [place] [address]Nknsv (Stone)BrownInvalid Interpretation [facility] HospitalComment on above:Performed By: #### [id number] #### [facility] [address] [place], [place] [address]GkwlzffstiyCuohzjqImdxhci Interpretation [facility] HospitalComment on above:Result Comment: Percentage (Represents the % composition)Performed By: #### [id number] #### [facility] [address] [place], [place] [address]Qcnykxytwr:CommentInvalid Interpretation [facility] HospitalComment on above:Result Comment: This test was developed and its performance characteristics determined by [facility]. It has not been cleared or approved by the Food and Drug Administration. Performed at: [address] [id number] PhD Martin FAROOQerformed By: #### [id number] #### [facility] [address] [place] [address]Vdrofthvhr comment Jaleel (Report)CommentInvalid Interpretation [facility] HospitalComment on above:Result Comment: Physician questions regarding Calculi Analysis contact [facility] at: [phone].Performed By: #### [id number] #### [facility] [address] [place], [place] [address]Pceduo Note:CommentInvalid Interpretation [facility] HospitalComment on above:Result Comment: Calculi report will follow via computer, mail or marketing analytics analyst delivery.Performed By: #### [id number] #### [facility] [address] [place] [address], [place] [address]Ytbf (Stone) [Entitic vol]5u0Drstuxz Interpretation [facility] HospitalComment on above:Result Comment: Single piece received. Performed By: #### [id number] #### [facility] [address] [place], [place] [address]Azlckcvl source subject NomCommentInvalid Interpretation Code [facility] HospitalComment on above:Result Comment: Not provided Performed By: #### [id number] #### [facility] [address] [place], [place] [address]Rqknn PhotoCommentInvalid Interpretation [facility] HospitalComment on above:Result Comment: Photograph will follow under a separate coverPerformed By: #### [id number] #### [facility] [address] [place], [place] [address]Dhcngm (Stone)56 mgInvalid Interpretation [facility] HospitalComment on above:Performed By: #### [id number] #### [facility] [address] [place], [place] [address]LV KUBon 79-55-2237II [facility] Main [address] [address] XRay Report Signed Patient: Raquel Randolph MR#: [id number] [birth year] : 1950 Acct:[id number] Age/Sex: 74 / M ADM Date: 05/19/24 Loc: XD Room: Type: [facility] Attending Dr: Montrell Holt MD [...] Eliseo Flores M.D.05/20/2024 12:55 AM Dictation Location: [facility] Transcribed By: [facility] 05/20/2454 Dictated By: Eliseo Flores II, MD 05/20/2450 Signed By: 05/20/2454[facility] Physician GroupBasic Metabolic Panelon 90-83-0183Skrzl gap [Moles/Vol]14.0 mmol/LNormal6.0-15.0The [facility] Physician GroupComment on above:Performed By: #### BMP, CBC, HEPATIC, LIPASE #### [facility] [address] [place] [address] USACalcium [Mass/Vol]9.2 mg/dLNormal8.6-10.3The [facility] Physician GroupComment on above:Performed By: #### BMP, CBC, HEPATIC, LIPASE #### [facility] [address] [place] [address] USAChloride [Moles/Vol]104 mmol/RRdjdwk82-287Way [facility] Physician GroupComment on above:Performed By: #### BMP, CBC, HEPATIC, LIPASE #### [facility] [address] [place] [address] USACO2 [Moles/Vol]24.1 mmol/XKfmsyd31.0-31.0The [facility] Physician GroupComment on above:Performed By: #### BMP, CBC, HEPATIC, LIPASE #### [place] [address] USACreatinine [Mass/Vol]0.90 mg/dLNormal0.70-1.30The [facility] Physician GroupComment on above:Performed By: #### BMP, CBC, HEPATIC, LIPASE #### [place] [address] USACreatinine Clr Calc Kebnfyst04.06NormalThe [facility] Physician GroupComment on above:Performed By: #### BMP, CBC, HEPATIC, LIPASE #### [place] [address] USAGFR/1.73 sq M.predicted MDRD (S/P/Bld) [Vol rate/Area] mL/min/{1.73_m2}NormalThe [facility] Physician GroupComment on above:Performed By: #### BMP, CBC, HEPATIC, LIPASE #### [place] [address] USAGlucose [Mass/Vol]108 mg/oZDegg26-143Nwb [facility] Physician GroupComment on above:Result Comment: Random Glucose Reference Range is dependent on time and content of last meal. Glucose of more than 200 mg/dL in a nonstressed, ambulatory subject supports the diagnosis of Diabetes Mellitus. ADA recommended reference rangePerformed By: #### BMP, CBC, HEPATIC, LIPASE #### [facility] [address] [place] [address] USAPotassium [Moles/Vol]4.1 mmol/LNormal3.5-5.1The [facility] Physician [facility] CountyComment on above:Performed By: #### BMP, CBC, HEPATIC, LIPASE #### [facility] [address] [place] [address] USASodium [Moles/Vol]138 mmol/SOfvmsk819-214Nes [facility] Physician [facility] CountyComment on above:Performed By: #### BMP, CBC, HEPATIC, LIPASE #### [facility] [address] [place] [address] USAUrea nitrogen [Mass/Vol]18 mg/dLNormal7-25The [facility] Physician GroupComment on above:Performed By: #### BMP, CBC, HEPATIC, LIPASE #### [facility] [address] [place], [place] [id number] USACT abdomen pelvis wo conon 93-48-5239UC abdomen pelvis wo [facility] [address] [place] [address] CT Scan Report Signed Patient: Raquel Randolph MR#: [id number] [birth year] : 1950 Acct:[id number] Age/Sex: 74 / M ADM Date: 05/19/24 Loc: ER Room: Type: [facility] ER Attending Dr: Copies to: Richard Ramirez [...] placement of a right-sided ureteral stent with right- sided hydronephrosis along with perinephric and periureteral fat stranding. No ureteral or bladder stone. Tiny nonobstructing left renal stones are redemonstrated. No bowel obstruction. Impression dictated by: Eliseo Flores M.D.05/19/2024 6:16 PM Dictation Location: [place] [address] Transcribed By: [facility] 05/19/241815 Dictated By: Eliseo Flores II, MD 05/19/241806 Signed By: 05/19/241815NormSar[facility] Physician GroupComplete Blood Count Auto Diffon 61-71-7235Vpzarhwvi (Bld) [#/Vol]0.0 10*3/uLNormal0.0-0.2The [facility] Physician GroupComment on above:Result Comment: PERFORMED BY: [address] [place] [address] PATHOLOGIST MUFFLER HAND FELIZ FAY M.D.Performed By: #### BMP, CBC, HEPATIC, LIPASE #### [place] [address] USABasophils/100 WBC (Bld)0.6 %Normal.The [facility] Physician GroupComment on above:Performed By: #### BMP, CBC, HEPATIC, LIPASE #### [place] [address] USAEosinophils (Bld) [#/Vol]0.1 10*3/uLNormal0.0-0.45The [facility] Physician GroupComment on above:Performed By: #### BMP, CBC, HEPATIC, LIPASE #### [place] [address] USAEosinophils/100 WBC (Bld)1.2 %Normal.The [facility] Physician GroupComment on above:Performed By: #### BMP, CBC, HEPATIC, LIPASE #### [place] [address] USAErythrocyte distribution width (RBC) [Ratio]13.7 %Normal 12.0-14.8The [facility] Physician GroupComment on above:Performed By: #### BMP, CBC, HEPATIC, LIPASE #### [place] [address] USAHematocrit (Bld) [Volume fraction]41.5 %Azxhcy71.8-50.0The [facility] Physician GroupComment on above:Performed By: #### BMP, CBC, HEPATIC, LIPASE #### [place] [address] USAHemoglobin (Bld) [Mass/Vol]14.3 g/vMJljxhj47.0-17.0The [facility] Physician GroupComment on above:Performed By: #### BMP, CBC, HEPATIC, LIPASE #### [place] [address] USALymphocytes (Bld) [#/Vol]1.9 10*3/uLNormal1.00-4.8The [facility] Physician GroupComment on above:Performed By: #### BMP, CBC, HEPATIC, LIPASE #### [place] [address] USALymphocytes/100 WBC (Bld)23.1 %Normal.The [facility] Physician GroupComment on above:Performed By: #### BMP, CBC, HEPATIC, LIPASE #### [address] (RBC) [Entitic mass]31.6 dbWpqcqb63.5-35.2The [facility] Physician GroupComment on above:Performed By: #### BMP, CBC, HEPATIC, LIPASE #### [address] (RBC) [Entitic vol]91.7 dAMhiflg06.5-101The [facility] Physician GroupComment on above:Performed By: #### BMP, CBC, HEPATIC, LIPASE #### [place] [address] USAMean Corpuscular HGB Conc34.4 g/zMOaxrjb53.5-35.6The [facility] Physician GroupComment on above:Performed By: #### BMP, CBC, HEPATIC, LIPASE #### [place] [address] USAMonocytes (Bld) [#/Vol]0.7 10*3/uLNormal0.0-0.8The [facility] Physician GroupComment on above:Performed By: #### BMP, CBC, HEPATIC, LIPASE #### [place] [address] USAMonocytes/100 WBC (Bld)17.49 %Normal0.00-20.00The [facility] Physician GroupComment on above:Performed By: #### BMP, CBC, HEPATIC, LIPASE #### [place] [address] USAMonocytes/100 WBC (Bld)8.8 %Normal.The [facility] Physician GroupComment on above:Performed By: #### BMP, CBC, HEPATIC, LIPASE #### [place] [id number] USANeutrophils (Bld) [#/Vol]5.4 10*3/uLNormal1.8-7.7The [facility] Physician GroupComment on above:Performed By: #### BMP, CBC, HEPATIC, LIPASE #### [facility] [address] [place] [address] USANeutrophils/100 WBC (Bld)66.3 %Normal.The [facility] Physician GroupComment on above:Performed By: #### BMP, CBC, HEPATIC, LIPASE #### [facility] [address] [place] [address] USANRBC%0.1 /100{WBC}Normal0-0.5The [facility] Comment on above:Performed By: #### BMP, CBC, HEPATIC, LIPASE #### [facility] [address] [place] [address] USAPlatelet mean volume (Bld) [Entitic vol]8.2 fLNormal 6.6-10.1The [facility] Physician GroupComment on above:Performed By: #### BMP, CBC, HEPATIC, LIPASE #### [facility] [address] [place] [address] USAPlatelets (Bld) [#/Vol]248 10*3/qKCzexht666-685Klx [facility] Physician GroupComment on above:Performed By: #### BMP, CBC, HEPATIC, LIPASE #### [facility] [address] [place] [address] USARBC (Bld) [#/Vol]4.52 10*6/uLNormal3.90-5.60The [facility] Physician GroupComment on above:Performed By: #### BMP, CBC, HEPATIC, LIPASE #### [facility] [address] [place] [address] USAWBC (Bld) [#/Vol]8.2 10*3/uLNormal4.1-10.5The [facility] Physician GroupComment on above:Performed By: #### BMP, CBC, HEPATIC, LIPASE #### [facility] [address] [place] [address] USADipstick and Microscopicon 74-15-6700Vrumzrjdrc (U)Turbid Critically abnormalClearThe [facility] Physician GroupComment on above:Order Comment: Name Collection Type:: Clean-Voided MidstreamPerformed By: #### ADDONUAPLUS, CUU ####[place] [address] [place] [address] USABacteria,UrineNone SeenNormalNone SeenThe [facility] Comment on above:Order Comment: Name Collection Type:: Clean-Voided Midstream Performed By: #### ADDONUAPLUS, CUU ####[place] [address] [facility], [place] USABilirubin,UrineNegativeNormalNegativeThe [facility] Physician GroupComment on above:Order Comment: Name Collection Type:: Clean- Voided MidstreamPerformed By: #### ADDONUAPLUS, CUU ####[address] USABudding Yeast,Urine4+HighNone SeenThe [facility] Physician GroupComment on above:Order Comment: Name Collection Type:: Clean-Voided MidstreamResult Comment: PERFORMED BY: [facility] [address] [place] [address] PATHOLOGIST MUFFLER HAND FELIZ FAY M.D.Performed By: #### ADDONUAPLUS, CUU ####[address] USACalcium Oxalate Crystals,Urine4+NormalThe [facility] Physician GroupComment on above:Order Comment: Name Collection Type:: Clean-Voided MidstreamPerformed By: #### ADDONUAPLUS, CUU ####[address] [address] USAColor (U)Dark-BrownCritically abnormalYellowThe [facility] Physician GroupComment on above:Order Comment: Name Collection Type:: Clean-Voided MidstreamPerformed By: #### ADDONUAPLUS, CUU ####[address] USAGlucose Ql (U)NormalNormalNormalThe [facility] Physician GroupComment on above:Order Comment: Name Collection Type:: Clean-Voided MidstreamPerformed By: #### ADDONUAPLUS, CUU ####[place] [address] [facility], [place] USAHyaline Casts,UrineNoneNormal 0-8The [facility] Physician GroupComment on above:Order Comment: Name Collection Type:: Clean-Voided MidstreamPerformed By: #### ADDONUAPLUS, CUU ####[address], [address] USAKetones Ql (U)Negative NormalNegativeThe [facility] Physician GroupComment on above:Order Comment: Name Collection Type:: Clean-Voided MidstreamPerformed By: #### ADDONUAPLUS, CUU ####[address] [address] [place] Leukocyte esterase Test strip Ql (U)2+HighNegativeThe [facility] Comment on above:Order Comment: Name Collection Type:: Clean-Voided Midstream Performed By: #### ADDONUAPLUS, CUU ####[address], [address] USAMucus,UrineRareNormalThe [facility] Comment on above:Order Comment: Name Collection Type:: Clean-Voided Midstream Performed By: #### ADDONUAPLUS, CUU ####[address] [address] USANitrite,UrineNegativeNormalNegativeThe [facility] Physician GroupComment on above:Order Comment: Name Collection Type:: Clean- Voided MidstreamPerformed By: #### ADDONUAPLUS, CUU ####[address], [address] USAOccult Blood,Urine3+High NegativeThe [facility] Physician GroupComment on above:Order Comment: Name Collection Type:: Clean-Voided MidstreamResult Comment: PERFORMED BY: [facility] [address] [place] [address] PATHOLOGIST MUFFLER HAND FELIZ FAY M.D.Performed By: #### ADDONUAPLUS, CUU ####[address], [id number] USApH (U)6.0 [pH]Normal 5.0-9.0The [facility] Physician GroupComment on above:Order Comment: Name Collection Type:: Clean-Voided MidstreamPerformed By: #### ADDONUAPLUS, CUU ####[address], [place] USAProtein (U) [Mass/Vol]100 mg/dLHighNegativeThe [facility] Physician GroupComment on above:Order Comment: Name Collection Type:: Clean-Voided MidstreamPerformed By: #### ADDONUAPLUS, CUU ####[address], [address] USARBC,UrineInnumerableHigh0-4The [facility] Physician GroupComment on above:Order Comment: Name Collection Type:: Clean-Voided MidstreamPerformed By: #### ADDONUAPLUS, CUU ####[address], [address] USASpecificy Higdon,Urine1.020Normal 1.001-1.030The [facility] Physician GroupComment on above:Order Comment: Name Collection Type:: Clean-Voided MidstreamPerformed By: #### ADDONUAPLUS, CUU ####[address], [id number] [place] Urobilinogen,UrineNormalNormalNormalThe [facility] Physician GroupComment on above:Order Comment: Name Collection Type:: Clean-Voided MidstreamPerformed By: #### ADDONUAPLUS, CUU ####[address], [address] USAWBC,UrineInnumerableHigh0-4The [facility] Physician GroupComment on above:Order Comment: Name Collection Type:: Clean-Voided MidstreamPerformed By: #### ADDONUAPLUS, CUU ####[address], [address] USAHepatic Panelon 25-07-9083Nzeetlj [Mass/Vol]4.3 g/dLNormal3.5-5.7The [facility] Physician GroupComment on above: Performed By: #### BMP, CBC, HEPATIC, LIPASE #### [facility] [address] [place] [address] USAAlbumin/Globulin [Mass ratio]1.7 {ratio}NormalThe [facility] Physician GroupComment on above:Performed By: #### BMP, CBC, HEPATIC, LIPASE #### [facility] [address] [place] [address] USAALP [Catalytic activity/Vol]76 U/JDpyotl20-958Dou [facility] Physician GroupComment on above:Performed By: #### BMP, CBC, HEPATIC, LIPASE #### [facility] [address] [place] [address] USAALT [Catalytic activity/Vol]36 U/LNormal7-52The [facility] Physician GroupComment on above:Performed By: #### BMP, CBC, HEPATIC, LIPASE #### [facility] [address] [place] [address] USAAST [Catalytic activity/Vol]23 U/ONobfsj27-13Roj [facility] Physician GroupComment on above:Performed By: #### BMP, CBC, HEPATIC, LIPASE #### [facility] [address] [place] [address] USABilirubin [Mass/Vol]1.1 mg/dLHigh0.3-1.0The [facility] Physician GroupComment on above:Performed By: #### BMP, CBC, HEPATIC, LIPASE #### [facility] [address] [place] [address] USABilirubin,Indirect1.0 mg/dLNormalThe [facility] Physician GroupComment on above:Performed By: #### BMP, CBC, HEPATIC, LIPASE #### [facility] [address] [place] [address] USABilirubin.indirect [Mass/Vol]0.10 mg/dLNormal0.03-0.18The [facility] Physician GroupComment on above:Performed By: #### BMP, CBC, HEPATIC, LIPASE #### [facility] [address] [place] [address] USAGlobulin (S) [Mass/Vol]2.6 g/dLNormalThe [facility] Physician GroupComment on above:Performed By: #### BMP, CBC, HEPATIC, LIPASE #### [facility] [address] [place] [address] USAProtein [Mass/Vol]6.9 g/dLNormal6.4-8.9The [facility] Physician GroupComment on above:Performed By: #### BMP, CBC, HEPATIC, LIPASE #### [place] [address] USALipaseon 87-55-1835Yznugq [Catalytic activity/Vol]13.0 U/L Mfmrbl88.0-82.0The [facility] Physician GroupComment on above:Result Comment: PERFORMED BY: [place] [address] PATHOLOGIST MUFFLER HAND FELIZ FAY M.D.Performed By: #### BMP, CBC, HEPATIC, LIPASE #### [place] [address] USAUrine Cultureon [id number] identified Cx Nom (U) <9,000 colonies/ml mixed bacterial skin contaminants 2 Days PERFORMED BY: [place] [address] PATHOLOGIST MUFFLER HAND FELIZ FAY M.D.NormalThe [facility] Physician Ummc Holmes CountyComment on above: Performed By: #### ERIN, CUU ####[facility] [place], [place] USADipstick and Microscopicon 81-62-7995Giyatsbfix (U) TurbidCritically abnormalClearThe [facility] Physician GroupComment on above: Order Comment: Name Collection Type:: Rodriguez CatheterPerformed By: #### ERIN, CUU #### [place] [address] USABacteria,UrineNone SeenNormalNone SeenThe [facility] Physician GroupComment on above:Order Comment: Name Collection Type:: Rodriguez CatheterPerformed By: #### ADDONUAPLUS, CUU #### [place] [address] USABilirubin,UrineNegativeNormalNegativePam [facility] Physician GroupComment on above:Order Comment: Name Collection Type:: Rodriguez CatheterPerformed By: #### ADDONUAPLUS, CUU #### [place] [address] USAColor (U)BrownCritically abnormalYellowThe [facility] Physician GroupComment on above:Order Comment: Name Collection Type:: Rodriguez CatheterPerformed By: #### ADDONUAPLUS, CUU #### [place] [address] USAGlucose Ql (U)NormalNormalNormalThe [facility] Physician GroupComment on above:Order Comment: Name Collection Type:: Rodriguez Catheter Performed By: #### ADDONUAPLUS, CUU #### [place] [address] USAHyaline Casts,UrineNoneNormal0-8The [facility] Physician GroupComment on above:Order Comment: Name Collection Type:: Rodriguez Catheter Performed By: #### ADDONUAPLUS, CUU #### [place] [address] USAKetones Ql (U)NegativeNormalNegativePam [facility] Physician GroupComment on above:Order Comment: Name Collection Type:: Rodriguez CatheterPerformed By: #### ADDONUAPLUS, CUU #### [place] [address] USALeukocyte esterase Test strip Ql (U)1+HighNegativeP[facility] Physician GroupComment on above:Order Comment: Name Collection Type:: Rodriguez CatheterPerformed By: #### ADDONUAPLUS, CUU #### [place] [address] USAMucus,UrineRareNormalPam [facility] Physician GroupComment on above:Order Comment: Name Collection Type:: Rodriguez CatheterResult Comment: PERFORMED BY: [place] [address] PATHOLOGIST MUFFLER HAND FELIZ FAY M.D.Performed By: #### ERIN, CUU #### [place] [address] USANitrite,UrineNegativeNormalNegativeThe [facility] Physician GroupComment on above:Order Comment: Name Collection Type:: Rodriguez Catheter Performed By: #### ERIN, CUU #### [place] [address] USAOccult Blood,Urine3+HighNegativeThe [facility] Physician GroupComment on above:Order Comment: Name Collection Type:: Rodriguez CatheterResult Comment: PERFORMED BY: [place] [address] PATHOLOGIST MUFFLER HAND FELIZ FAY M.D.Performed By: #### ERIN, CUU #### [place] [address] USApH (U)6.0 [pH]Normal5.0-9.0The [facility] Group Comment on above:Order Comment: Name Collection Type:: Rodriguez CatheterPerformed By: #### ERIN, CUU #### [place] [address] USAProtein (U) [Mass/Vol]100 mg/dLHighNegativeThe [facility] Physician GroupComment on above:Order Comment: Name Collection Type:: Rodriguez CatheterPerformed By: #### ERIN, CUU #### [place] [address] USARBC,UrineInnumerableHigh0-4The [facility] Group Comment on above:Order Comment: Name Collection Type:: Rodriguez CatheterPerformed By: #### ERIN, CUU #### [place] [address] USASpecificy Higdon,Urine1.810Kxrgae1.001-1.030The [facility] Physician GroupComment on above:Order Comment: Name Collection Type:: Rodriguez CatheterResult Comment: Rechecked by refractometerPerformed By: #### ADDONUAPLUS, CUU #### [place] [address] USASquamous Epithelial Cell,Urine1 [HPF]Normal0-2The [facility] Physician GroupComment on above:Order Comment: Name Collection Type:: Rodriguez CatheterPerformed By: #### ADDONUAPLUS, CUU #### [place] [address] USAUrobilinogen,UrineNormalNormalNormalThe [facility] Physician GroupComment on above:Order Comment: Name Collection Type:: Rodriguez CatheterPerformed By: #### ADDONUAPLUS, CUU #### [place] [address] USAWBC,UrineInnumerableHigh0-4The [facility] Comment on above:Order Comment: Name Collection Type:: Rodriguez CatheterPerformed By: #### ADDONUAPLUS, CUU #### [place] [address] USAUrine Cultureon [id number] identified Cx Nom (U)No Growth 2 Days PERFORMED BY: [place] [address] PATHOLOGIST MUFFLER HAND FELIZ FAY M.D.NormalThe [facility] Physician GroupComment on above: Performed By: #### ADDONUAPLUS, CUU #### [place] [address] USAAmbulatory Visit Summaryon [id number] Visit SummaryAmbulatory Visit Summary RAQUEL RANDOLPH :1950 Visit Date:04/25/2024 [...] with SARA MUNSON, ELENA Crocker When: Where: [address] [place], [place] [id number]- Medications What How Much When Instructions Unchanged [...] including vitamins, herbs, eye drops, creams, and qbim-bpx-qxhlomx medicines. ??? Any problems you or family [...] These include any diabetes medicines or blood thinnersyou take. ??? Taking medicines such as aspirin and ibuprofen. These medicines can thin your blood. Do not take them unless your health care provider tells you to. ??? Taking krqd-usq-pbaiwnz medicines, vitamins, herbs, and supplements. Tests You [...] Care for you fo (more content not included)...[facility] Ambulatory Visit SummaryAmbulatory Visit Summary RAQUEL RANDOLPH :1950 Visit Date:04/25/2024 [...] SARA MUNSON, Montrell Awad, URL When: Where: [address] [place] [address]- Medications What How Much When Instructions Unchanged [...] including vitamins, herbs, eye drops, creams, and wyac-uhe-gmjakao medicines. ??? Any problems you or family [...] These include any diabetes medicines or blood thinnersyou take. ??? Taking medicines such as aspirin and ibuprofen. These medicines can thin your blood. Do not take them unless your health care provider tells you to. ??? Taking doxz-jub-dnjemhy medicines, vitamins, herbs, and supplements. Tests You [...] Care for you fo (more content not included)...[facility] Urology Office/Clinic Noteon [id number] Office/Clinic NoteUrology Office/Clinic Note Chief Complaint ER f/u HPI [...] 73 yo male following up to recent [facility] ER visit for ureteral stone. Pt accompanied by today. Unable to find PSA. IPPS 3. 1. Ureteral stone with hydronephrosis (N13.2: Hydronephrosis with renal and ureteral calculous obstruction) Pt presented to [facility] ER 04/23/24 RLQ pain and N/V. He has been having intermittent pain/nausea for several weeks or months...he is unsure. CT AP w con 04/23/24 - 7 mm right UPJ stone with moderate hydronephrosis. KUB 04/23/24 [facility] - R UPJ stone seen on CT [...] since midnight. Reports he is flying to [place] on Saturday 04/28. Due to upcoming trip, [...] of kidney) CT AP w con 04/23/24 [facility] - Punctate right calyceal stone. KUB 04/23/24 [facility] - no stones. Hx of stones. One episode which was >[address] Puentes performed ESWL and had stentplaced. See #1. Follow-up With When Contact Information Montrell HOLT MD, URL [address] [place] [address]- Additional Instructions: R ESWL with stent (later this afternoon) Patient Education ESWL for Kidney Stones I, Shantell Dotson, personally scribed for Dr. Holt on 04/25/2024 10:12:13. . Documentation recorded by the scribe, Shantell Dotson, accurately reflects the services(s) I performed and decisions made by me. Authenticated by Dr. Holt on 04/25/2024 10:15:21. Problem List/Past Medical History Ongoing Kidney stone Ureteral stone with hydronephrosis (more content not included)...[facility] CenterComment on above: Result Comment: Electronically Signed By: Montrell HOLT MD\.br\Date and Time Signed: 04/25/24 10:15 EST\.br\Electronically Co-Signed By: Shantell Dotson\.br\Date and Time Co-Signed: 04/25/2410:12 ESTBasic Metabolic Panelon [id number] gap [Moles/Vol]12.5 mmol/LNormal6.0-15.0The [facility] Physician GroupComment on above:Performed By: #### HEPATIC, BMP, LIPASE, CBC ####[facility] [address] [place] [address] USACalcium [Mass/Vol] 8.9 mg/dLNormal8.6-10.3The [facility] Physician GroupComment on above:Performed By: #### HEPATIC, BMP, LIPASE, CBC ####[facility] [address] [place] [address] USAChloride [Moles/Vol]103 mmol/VUpknrp21-711Pwf [facility] Physician GroupComment on above:Performed By: #### HEPATIC, BMP, LIPASE, CBC ####[place] [address] [place] [address] USACO2 [Moles/Vol]24.7 mmol/RLlzfwn49.0-31.0The [facility] Comment on above:Performed By: #### HEPATIC, BMP, LIPASE, CBC ####[address] [address] USACreatinine [Mass/Vol] 0.90 mg/dLNormal0.70-1.30The [facility] Physician GroupComment on above:Performed By: #### HEPATIC, BMP, LIPASE, CBC ####[place] [address] USACreatinine Clr Calc Gymuilpb60.89NormSarasota Memorial Hospital Physician GroupComment on above:Performed By: #### HEPATIC, BMP, LIPASE, CBC ####[place] [address] USAGFR/1.73 sq M.predicted MDRD (S/P/Bld) [Vol rate/Area]mL/min/{1.73_m2} NormalThe [facility] Physician GroupComment on above:Performed By: #### HEPATIC, BMP, LIPASE, CBC ####[place] [address] USAGlucose [Mass/Vol]112 mg/zQCjhm24-434Yek [facility] Comment on above:Result Comment: Random Glucose Reference Range is dependent on time and content of last meal. Glucose of more than 200 mg/dL in a nonstressed, ambulatory subject supports the diagnosis of Diabetes Mellitus. ADA recommended reference rangePerformed By: #### HEPATIC, BMP, LIPASE, CBC ####[address] [address] [place] Potassium [Moles/Vol]4.2 mmol/LNormal3.5-5.1The [facility] Physician GroupComment on above:Performed By: #### HEPATIC, BMP, LIPASE, CBC ####[address] [address] USASodium [Moles/Vol]136 mmol/L Umhujg211-655Eeq [facility] Physician GroupComment on above:Performed By: #### HEPATIC, BMP, LIPASE, CBC ####[facility] [address] [place] [address] USAUrea nitrogen [Mass/Vol]29 mg/dLHigh7-25The [facility] Physician GroupComment on above:Performed By: #### HEPATIC, BMP, LIPASE, CBC ####[facility] [address] [place] [address] USACT abdomen pelvis w conon [id number] abdomen pelvis w [facility] [place] [address] [place] [id number] Scan Report Signed Patient: Raquel Randolph MR#: [id number] 08 : 1950 Acct:[id number] Age/Sex: 73 / M ADM Date: 04/23/24 Loc: ER Room: Type: [facility] ER Attending Dr: Copies to: Abdi Lobo [...] Atherosclerosis. RETROPERITONEUM: No significant retroperitoneal abnormalities identified. MESENTERY:Unremarkable SMALL BOWEL: The small bowel loops are [...] Anibal Contreras M.D.04/23/2024 8:36 AM Dictation Location: [place] [address] Transcribed By: [facility] 04/23/2436 Dictated By: Anibal Contreras DO 04/23/24 0830 Signed By: 04/23/24 0836[facility] Physician GroupComplete Blood Count Auto Diffon [id number] (Bld) [#/Vol]0.1 10*3/uLNormal0.0-0.2The [facility] Physician GroupComment on above:Result Comment: PERFORMED BY: [address] [place] [id number] PATHOLOGIST MUFFLER HAND FELIZ FAY M.D.Performed By: #### HEPATIC, BMP, LIPASE, CBC ####[place] [address] [facility] Basophils/100 WBC (Bld)0.9 %Normal.The [facility] Physician GroupComment on above:Performed By: #### HEPATIC, BMP, LIPASE, CBC ####[address] [address] USAEosinophils (Bld) [#/Vol]0.1 10*3/uLNormal0.0-0.45The [facility] Physician GroupComment on above:Performed By: #### HEPATIC, BMP, LIPASE, CBC ####[place] [address] USAEosinophils/100 WBC (Bld)1.5 %Normal.The [facility] Physician GroupComment on above:Performed By: #### HEPATIC, BMP, LIPASE, CBC ####[place] [address] [facility] Erythrocyte distribution width (RBC) [Ratio]13.5 %Wsjrjy36.0-14.8The [facility] Physician GroupComment on above:Performed By: #### HEPATIC, BMP, LIPASE, CBC ####[place] [address] [facility] Hematocrit (Bld) [Volume fraction]43.0 %Yvrsit30.8-50.0The [facility] Physician GroupComment on above:Performed By: #### HEPATIC, BMP, LIPASE, CBC ####[place] [address] USAHemoglobin (Bld) [Mass/Vol]14.8 g/iUEqngmi01.0-17.0The [facility] Physician GroupComment on above: Performed By: #### HEPATIC, BMP, LIPASE, CBC ####[place] [address] USALymphocytes (Bld) [#/Vol]1.7 10*3/uL Normal1.00-4.8The [facility] Physician GroupComment on above:Performed By: #### HEPATIC, BMP, LIPASE, CBC ####[place] [address] USALymphocytes/100 WBC (Bld)28.8 %Normal.The [facility] Physician GroupComment on above:Performed By: #### HEPATIC, BMP, LIPASE, CBC ####[address] Walker StreetMCH (RBC) [Entitic mass]32.0 jfEfdnwz64.5-35.2The [facility] Physician GroupComment on above:Performed By: #### HEPATIC, BMP, LIPASE, CBC ####[address]V (RBC) [Entitic vol]93.0 fL Vzwxae81.5-101The [facility] Physician GroupComment on above:Performed By: #### HEPATIC, BMP, LIPASE, CBC ####[place] [address] USAMean Corpuscular HGB Conc34.4 g/aRRqrjyy79.5-35.6The [facility] Physician GroupComment on above:Performed By: #### HEPATIC, BMP, LIPASE, CBC ####[place] [address] USAMonocytes (Bld) [#/Vol]0.7 10*3/uLNormal0.0-0.8The [facility] Physician GroupComment on above:Performed By: #### HEPATIC, BMP, LIPASE, CBC ####[place] [address] USAMonocytes/100 WBC (Bld)16.40 %Normal0.00-20.00The [facility] Physician GroupComment on above: Performed By: #### HEPATIC, BMP, LIPASE, CBC ####[place] [address] USAMonocytes/100 WBC (Bld)11.8 %Normal. The [facility] Physician GroupComment on above:Performed By: #### HEPATIC, BMP, LIPASE, CBC ####[place] [address] USANeutrophils (Bld) [#/Vol]3.3 10*3/uLNormal1.8-7.7The [facility] Physician GroupComment on above:Performed By: #### HEPATIC, BMP, LIPASE, CBC ####[place] [address] [place] Neutrophils/100 WBC (Bld)57.0 %Normal.The [facility] Physician GroupComment on above:Performed By: #### HEPATIC, BMP, LIPASE, CBC ####[place] [address] USANRBC%0.1 /100{WBC}Normal0-0.5 The [facility] Physician GroupComment on above:Performed By: #### HEPATIC, BMP, LIPASE, CBC ####[place] [address] USAPlatelet mean volume (Bld) [Entitic vol]8.0 fLNormal6.6-10.1The [facility] Physician GroupComment on above:Performed By: #### HEPATIC, BMP, LIPASE, CBC ####[place] [address] USAPlatelets (Bld) [#/Vol]213 10*3/iRQpzivk678-751Wjk [facility] Physician GroupComment on above:Performed By: #### HEPATIC, BMP, LIPASE, CBC ####[facility] [place] [address] USARBC (Bld) [#/Vol] 4.62 10*6/uLNormal3.90-5.60The [facility] Physician GroupComment on above: Performed By: #### HEPATIC, BMP, LIPASE, CBC ####[address] [address] USAWBC (Bld) [#/Vol]5.8 10*3/uLNormal 4.1-10.5The [facility] Physician GroupComment on above:Performed By: #### HEPATIC, BMP, LIPASE, CBC ####[place] [address] USADipstick and Microscopicon 72-26-2980Edeortjpsl (U) ClearNormalClearThe [facility] Physician GroupComment on above:Order Comment: Name Collection Type:: Clean-Voided MidstreamPerformed By: #### ADDONUAPLUS #### [facility] [address] [place] [address] USABacteria,UrineNone SeenNormalNone SeenPam Health [facility] Physician GroupComment on above:Order Comment: Name Collection Type:: Clean- Voided MidstreamPerformed By: #### ADDONUAPLUS #### [facility] [address] [place], [place] [id number] USABilirubin,UrineNegativeNormalNegativeThe [facility] Physician GroupComment on above:Order Comment: Name Collection Type:: Clean- Voided MidstreamPerformed By: #### ADDONUAPLUS #### [facility] [address] [place], [place] [id number] USAColor (U)Light-YellowNormalYellowThe [facility] Physician GroupComment on above:Order Comment: Name Collection Type:: Clean-Voided MidstreamPerformed By: #### ADDONUAPLUS #### [facility] [address] [place], [place] [id number] USAGlucose Ql (U)NormalNormalNormalThe [facility] Physician GroupComment on above:Order Comment: Name Collection Type:: Clean-Voided MidstreamPerformed By: #### ADDONUAPLUS #### [facility] [address] [place] [address] USAHyaline Casts,UrineNoneNormal0-8The [facility] Physician GroupComment on above:Order Comment: Name Collection Type:: Clean-Voided MidstreamPerformed By: #### ADDONUAPLUS #### [address] [address] USAKetones Ql (U)NegativeNormalNegativePam Health [facility] Physician GroupComment on above:Order Comment: Name Collection Type:: Clean- Voided MidstreamPerformed By: #### ADDONUAPLUS #### [place] [id number] USALeukocyte esterase Test strip Ql (U)NegativeNormalNegative The [facility] Physician GroupComment on above:Order Comment: Name Collection Type:: Clean-Voided MidstreamPerformed By: #### ADDONUAPLUS #### [place] [address] USAMucus,Urine1+Critically abnormalThe [facility] Physician GroupComment on above:Order Comment: Name Collection Type:: Clean-Voided MidstreamResult Comment: PERFORMED BY: [place] [address] PATHOLOGIST MUFFLER HAND FELIZ FAY M.D.Performed By: #### ADDONUAPLUS #### [place] [address] USANitrite,UrineNegativeNormalNegativePam [facility] Physician GroupComment on above:Order Comment: Name Collection Type:: Clean-Voided MidstreamPerformed By: #### ADDONUAPLUS #### [place] [id number] USAOccult Blood,Urine3+HighNegativeThe [facility] Physician GroupComment on above:Order Comment: Name Collection Type:: Clean-Voided MidstreamResult Comment: PERFORMED BY: [place] [address] PATHOLOGIST MUFFLER HAND FELIZ FAY M.D.Performed By: #### ADDONUAPLUS #### [place] [address] USApH (U)5.5 [pH]Normal5.0-9.0The [facility]ician [facility] Comment on above:Order Comment: Name Collection Type:: Clean-Voided Midstream Performed By: #### ADDONUAPLUS #### [place] [address] USAProtein,UrineTraceHighNegativeThe [facility] Physician GroupComment on above:Order Comment: Name Collection Type:: Clean-Voided MidstreamPerformed By: #### ADDONUAPLUS #### [place] [address] USARBC,UrineInnumerableHigh0-4The [facility] Comment on above:Order Comment: Name Collection Type:: Clean-Voided Midstream Performed By: #### ADDONUAPLUS #### [place] [address] USASpecificy Higdon,Urine1.961Iqjsfu3.001-1.030The [facility] Physician GroupComment on above:Order Comment: Name Collection Type:: Clean- Voided MidstreamPerformed By: #### ADDONUAPLUS #### [place] [address] USAUrobilinogen,UrineNormalNormalNormalThe [facility] Physician GroupComment on above:Order Comment: Name Collection Type:: Clean- Voided MidstreamPerformed By: #### ADDONUAPLUS #### [place] [address] USAWBC,Urine1 [HPF]Normal0-4The [facility] Comment on above:Order Comment: Name Collection Type:: Clean-Voided Midstream Performed By: #### ADDONUAPLUS #### [place] [address] USAHepatic Panelon 23-64-9737Fjmjybe [Mass/Vol]4.1 g/dLNormal 3.5-5.7The [facility] Physician GroupComment on above:Performed By: #### HEPATIC, BMP, LIPASE, CBC ####[place] [address] [place] [address] USAAlbumin/Globulin [Mass ratio]1.5 {ratio}NormalThe [facility] Physician GroupComment on above:Performed By: #### HEPATIC, BMP, LIPASE, CBC ####[place] [address] [place] [address] USAALP [Catalytic activity/Vol]59 U/YVptaoq64-664Ndq [facility] Physician GroupComment on above:Performed By: #### HEPATIC, BMP, LIPASE, CBC ####[place] [address] [place] [address] USAALT [Catalytic activity/Vol]23 U/LNormal7-52The [facility] Physician GroupComment on above:Performed By: #### HEPATIC, BMP, LIPASE, CBC ####[address] [address] USAAST [Catalytic activity/Vol]19 U/HPrtawe92-38Zsf [facility] Physician GroupComment on above:Performed By: #### HEPATIC, BMP, LIPASE, CBC ####[address] [address] USABilirubin [Mass/Vol]1.2 mg/dLHigh0.3-1.0The [facility] Comment on above:Performed By: #### HEPATIC, BMP, LIPASE, CBC ####[address] [address] USABilirubin,Indirect1.1 mg/dLNormalThe [facility] Physician GroupComment on above:Performed By: #### HEPATIC, BMP, LIPASE, CBC ####[address] [address] USABilirubin.indirect [Mass/Vol]0.10 mg/dLNormal 0.03-0.18The [facility] Physician GroupComment on above:Performed By: #### HEPATIC, BMP, LIPASE, CBC ####[address] [address] USAGlobulin (S) [Mass/Vol]2.8 g/dLNormalThe [facility] Physician GroupComment on above:Performed By: #### HEPATIC, BMP, LIPASE, CBC ####[facility] [place] [address] USAProtein [Mass/Vol]6.9 g/dLNormal6.4-8.9The [facility] Physician GroupComment on above: Performed By: #### HEPATIC, BMP, LIPASE, CBC ####[place] [address] [place] [id number] USALipaseon 38-40-9247Lvazrm [Catalytic activity/Vol]13.0 U/HYtdywl20.0-82.0The [facility] Physician [facility]mmc Holmes CountyComment on above:Result Comment: PERFORMED BY: [place] [address] PATHOLOGIST MUFFLER HAND FELIZ FAY M.D.Performed By: #### HEPATIC, BMP, LIPASE, CBC ####[place] [address] [place] [address] USAXR KUB on 07-88-2255OS [facility] Main [place] [id number] XRay Report Signed Patient: Raquel Randolph MR#: [id number] [birth year] : 1950 Acct:[id number] Age/Sex: 73 / M ADM Date: 04/23/24 Loc: ER Room: Type: [facility] ER Attending Dr: Copies to: Abdi Lobo [...] Winifred Ac M.D.04/23/2024 11:19 AM Dictation Location: [place] [address] Transcribed By: VAZQUEZ 04/23/24 1119 Dictated By: Winifred Ac MD 04/23/24 1116 Signed By: 04/23/24 1119[facility] Physician GroupAlanine aminotransferase [Enzymatic activity/volume] in Serum or PlasmaOrdered By: Wendy Pastor on 71-15-6545SJD [Catalytic activity/Vol]27 U/L7-52CentervilleAlbumin [Mass/volume] in Serum or Plasma by Bromocresol green (BCG) dye binding methoOrdered By: Wendy Pastor on 25-13-3177Wbarbrw BCG dye [Mass/Vol] 4.1 g/dL3.5-5.7FThe Bellevue HospitalAlkaline phosphatase [Enzymatic activity/volume] in Serum or PlasmaOrdered By: Wendy Pastor on 84-56-8635YGY [Catalytic activity/Vol]68 U/O45-268CensceqikCentervilleAspartate aminotransferase [Enzymatic activity/volume] in Serum or PlasmaOrdered By: Wendy Pastor on 09-83-4410NUO [Catalytic activity/Vol]19 U/P27-74NioyefpffCentervilleBasophils Auto (Bld) [#/Vol]Ordered By: Wendy Pastor on 89-06-0934Dvlgoiblu (Bld) [#/Vol]0.1 10*3/uL0.0-0.2FThe Bellevue HospitalBasophils/100 WBC Auto (Bld)Ordered By: Wendy Pastor on 06-06-2023 Basophils/100 WBC (Bld)0.8 %.CentervilleBilirubin.total [Mass/volume] in Serum or PlasmaOrdered By: Wendy Pastor on 06-06-2023 Bilirubin [Mass/Vol]1.2 mg/dL0.3-1.0CentervilleCalcium [Mass/volume] in Serum or PlasmaOrdered By: Wendy Pastor on 78-84-6942Scscdzk [Mass/Vol]8.9 mg/dL8.6-10.3FThe Bellevue HospitalCarbon dioxide, total [Moles/volume] in Serum or PlasmaOrdered By: Wendy Pastor on 06-06-2023 CO2 [Moles/Vol]28.6 mmol/L21.0-31.0CentervilleChloride [Moles/volume] in Serum or PlasmaOrdered By: Wendy Pastor on 06-06-2023 Chloride [Moles/Vol]103 mmol/U77-280MrmrigdjoCentervilleCholesterol [Mass/volume] in Serum or PlasmaOrdered By: Wendy Pastor on 06-06-2023 Cholesterol [Mass/Vol]203 mg/wT763-153ZvxqdcsxtCentervilleComment on above:Chol less than 200 mg/dl low riskChol 201-239 mg/dl borderline riskChol 240 mg/dl and greater high riskCholesterol in LDL Calc [Mass/Vol]Ordered By: Wendy Pastor on 73-72-9379Rlwbdbchmrr in LDL [Mass/Vol]133 mg/dL0-100CentervilleComment on above:LDL ATP III CLASSIFICATIONLDL less than 100 mg/dL OptimalLDL 100-129 mg/dL Near or above bwgtutsIER136-121 mg/dL Borderline highLDL 160-189 mg/dL HighLDL greater than 189 mg/dL Very high Cholesterol in VLDL Calc [Mass/Vol]Ordered By: Wendy Pastor on 06-06-2023 Cholesterol in VLDL [Mass/Vol]15 mg/dLCenterville Creatinine [Mass/volume] in Serum or PlasmaOrdered By: Wendy Pastor on 36-25-7602Gckveecvet [Mass/Vol]0.82 mg/dL0.70-1.30CentervilleEosinophils Auto (Bld) [#/Vol]Ordered By: Wendy Pastor on 06-06-2023 Eosinophils (Bld) [#/Vol]0.1 10*3/uL0.0-0.45[place] Eosinophils/100 WBC Auto (Bld)Ordered By: Wendy Pastor on 06-06-2023 Eosinophils/100 WBC (Bld)1.4 %.CentervilleErythrocyte distribution width Auto (RBC) [Ratio]Ordered By: Wendy Pastor on 06-06-2023 Erythrocyte distribution width (RBC) [Ratio]13.8 %12.0-14.8CentervilleGlobulin Calc (S) [Mass/Vol]Ordered By: Wendy Pastor on 73-94-4155Brezazcn (S) [Mass/Vol]2.1 g/dLCenterville Glucose [Mass/volume] in Serum or PlasmaOrdered By: Wendy Pastor on 06-06-2023 Glucose [Mass/Vol]94 mg/bH95-321GrhvngiavCentervilleComment on above:ADA recommended reference rangeRandom Glucose Reference Range is dependent on time and content of last meal. Glucose of more than 200 mg/dL in a nonstressed, ambulatory subject supports the diagnosisof Diabetes Mellitus. Glucose mean value [Mass/volume] in Blood Estimated from glycated hemoglobin Ordered By: Wendy Pastor on 12-36-1355Xvdvglm glucose Estimated from glycated hemoglobin (Bld) [Mass/Vol]126 mg/dLCentervilleHematocrit Auto (Bld) [Volume fraction]Ordered By: Wendy Pastor on 32-95-5923Lacfjhfvfa (Bld) [Volume fraction]42.2 %38.8-50.0[place] Hemoglobin A1c percentageOrdered By: Wendy Pastor on 88-03-3671QdE8r (Bld) [Mass fraction]6.0 %4.3-5.6FThe Bellevue HospitalComment on above: Increased risk for diabetes: 5.7 - 6.4diabetes: >6.4glycemic control for adults with diabetes: <7.0Hemoglobin [Mass/volume] in BloodOrdered By: Wendy Pastor on 64-29-9619Oyxbmrnwti (Bld) [Mass/Vol]14.5 g/dL13.0-17.0CentervilleLeukocytes [#/volume] corrected for nucleated erythrocytes in Blood by Automated counOrdered By: Wendy Pastor on 06-06-2023 WBC corrected for nucl RBC Auto (Bld) [#/Vol]8.6 10*3/uL4.1-10.5FThe Bellevue HospitalLymphocytes Auto (Bld) [#/Vol]Ordered By: Wendy Pastor on 14-18-9461Vpktprwwcwo (Bld) [#/Vol]2.2 10*3/uL1.00-4.8CentervilleLymphocytes/100 WBC Auto (Bld)Ordered By: Wendy Pastor on 44-04-2093Zczvauylukh/100 WBC (Bld)25.3 %.[facility] AndersonH Auto (RBC) [Entitic mass]Ordered By: Wendy Pastor on 99-29-2734JGH (RBC) [Entitic mass]32.1 pg27.5-35.2FThe Bellevue HospitalMCHC Auto (RBC) [Mass/Vol]Ordered By: Wendy Pastor on 34-54-6142DSZR (RBC) [Mass/Vol]34.3 g/dL 32.5-35.6FThe Bellevue HospitalMCV Auto (RBC) [Entitic vol]Ordered By: Wendy Pastor on 91-13-5699DZB (RBC) [Entitic vol]93.6 fL83.5-101CentervilleMonocytes Auto (Bld) [#/Vol]Ordered By: Wendy Pastor on 23-29-6578Noxwxeaae (Bld) [#/Vol]1.0 10*3/uL0.0-0.8CentervilleMonocytes/100 WBC Auto (Bld)Ordered By: Wendy Pastor on 06-06-2023 Monocytes/100 WBC (Bld)11.1 %.CentervilleNeutrophils Auto (Bld) [#/Vol]Ordered By: Wendy Pastor on 70-07-5134Bbqkhemsmyo (Bld) [#/Vol] 5.3 10*3/uL1.8-7.7FThe Bellevue HospitalNeutrophils/100 WBC Auto (Bld)Ordered By: Wendy Pastor on 85-95-6015Edeygkmdhee/100 WBC (Bld)61.4 %. CentervilleNo Panel InformationOrdered By: Wendy Pastor on 97-31-8107Qebgevdql GFR (CKD-EPI)> 60.0 mL/MinCentervillePharmacy Creatinine Clearance (ChemN/AFThe [facility]vue Hospital Nucleated erythrocytes [Presence] in Blood by Automated countOrdered By: Wendy Pastor on 27-77-9392Stqgtuhhs RBC Auto Ql (Bld)0.0 /100{WBC}0-0.5FThe Bellevue HospitalPlatelet mean volume Auto (Bld) [Entitic vol]Ordered By: Wendy Pastor on 99-16-9656Vrxwwxgn mean volume (Bld) [Entitic vol]7.9 fL 6.6-10.1FThe Bellevue HospitalPlatelets Auto (Bld) [#/Vol]Ordered By: Wendy Pastor on 75-44-4851Ofqgjzxdj (Bld) [#/Vol]228 10*3/zX498-112BwlpcbvjaCentervillePotassium [Moles/volume] in Serum or PlasmaOrdered By: Wendy Pastor on 04-89-0922Bmhzldcls [Moles/Vol]4.6 mmol/L3.5-5.1FThe Bellevue HospitalProtein [Mass/volume] in Serum or PlasmaOrdered By: Wendy Pastor on 00-46-9008Ttkwtki [Mass/Vol]6.2 g/dL6.4-8.9CentervilleRBC Auto (Bld) [#/Vol]Ordered By: Wendy Pastor on 15-55-9004KEY (Bld) [#/Vol]4.51 10*6/uL3.90-5.60[facility] Systemerum or plasma albumin/globulin mass ratioOrdered By: Wendy Pastor on 06-06-2023 Albumin/Globulin [Mass ratio]2.0 {ratio}[facility] Systemerum or plasma anion gap determinationOrdered By: Wendy Pastor on 19-76-8350Pqeru gap [Moles/Vol]11.0 mmol/L6.0-15.0[facility] Systemerum or plasma high density lipoprotein (HDL) cholesterol measurementOrdered By: Wendy Pastor on 76-84-8703Dceopyybhqi in HDL [Mass/Vol]55 mg/tJ67-25YlwwbcroxCentervilleComment on above:HDL CHOL ATP-III CLASSIFICATION Cardiovascular RiskHDL > or equal to 60 mg/dL LOWHDL < 40 mg/dL HIGHSerum or plasma total cholesterol/high density lipoprotein (HDL) cholesterol mass rat Ordered By: Wendy Pastor on 92-54-0469Sbycnzynyma.total/Cholesterol in HDL [Mass ratio]3.7 {ratio}<5.0[facility] Systemodium [Moles/volume] in Serum or PlasmaOrdered By: Wendy Pastor on 91-90-2426Rrjjuo [Moles/Vol]138 mmol/C492-416TvtkddsjxCentervilleThyrotropin [Units/volume] in Serum or PlasmaOrdered By: Wendy Pastor on 03-77-3314GAI Qn 2.67 m[IU]/L0.45-5.33CentervilleTriglyceride [Mass/volume] in Serum or PlasmaOrdered By: Wendy Pastor on 12-99-9910Mwbhypznukwn [Mass/Vol]77 mg/dL0-149CentervilleComment on above:TRIG ATP III CLASSIFICATIONTRIG less than 150 mg/dL NormalTRIG 150-199 mg/dL Borderline highTRIG 200-500 mg/dL High TRIG greater than 500 mg/dL Very highStandard traceable to the Center for Disease Conrtrol and Prevention (CDC) test method.Urea nitrogen [Mass/volume] in Serum or PlasmaOrdered By: Wendy Pastor on 04-05-9143Naoc nitrogen [Mass/Vol]19 mg/dL7-25CentervilleVitamin D+Metabolites [Mass/volume] in Serum or PlasmaOrdered By: Wendy Pastor on 62-79-8873Pixuyfn D+Metabolites [Mass/Vol]17.2 ng/eE61-472 CentervilleComment on above:VITAMIN D STATUS 25(OH)VITAMIN D RANGE (ng/mL) Deficient <20 Insufficient 20 to <95Fdbjqaozlt13 to 100Reference: Polina PEREZ,Mason SYLVESTER, Fiona PUENTES, et al. Evaluation,treatment, and prevention of vitamin D deficiency; an Endocrine Society clinical practice guideline. JCEM. 2010; 96(7):1911-30.WBC Auto (Bld) [#/Vol]Ordered By: Wendy Pastor on 18-58-0908TZX (Bld) [#/Vol]8.6 10*3/uL4.1-10.5FBlanchard Valley Health System [facility] HospitalARS-CoV-2 (COVID-19) RNA MICHAEL+probe Ql (Resp)on 67-95-1282DWAZ-CoV-2 (COVID-19) RNA MICHAEL+probe Ql (Unsp spec)NegativeNomosaic life care at st. joseph [employer] Other COVID Quick Testingon 39-61-4454UjystmKjugcruhYvolqFin [employer]iver Other Quick Strepon 04-18-2022. pyogenes Org specific cx Ql (Throat)NegativeFort Lauderdale Savedaily Other Quick StrepFin [employer] Other COVID Quick Testingon 79-30-8917XvucjeXmevcaxaPeoenFin Quiver Other COVID Quick Testingon 48-68-9363JsfwnzBncihjuuBrmiiFin Quiver Other Vital Signs Date TimeVital SignValuePerforming FjhqvyzliDrjjnesy61-79-9961 09:27-0500Blood Pressure LocationPaMyTinks [facility]12-06-2024 09:27-0500Body scclgjzilzt50.6 [degF]Montrell [employer] [facility]12-06-2024 09:27-0500Diastolic blood fusfcyoo11 mm[Hg]Montrell [employer] [facility]12-06-2024 09:27-0500Heart rate63 /minPaoseik HOLT [facility]12-06-2024 09:27-0500Respiratory rate18 /Zuleyka HOLT [facility]12-06-2024 09:27-0500Systolic blood ctkqaxbl873 mm[Hg]Montrell HOLT [facility]06-20-2024 09:47-0400Body drlich394.8 cmCenterville06-20-2024 09:47-0400Body mass index (BMI) [Ratio]32.3 kg/b4ZnamnbihaCenterville06-20-2024 09:47-0400Body qpzhvirpzzr81.6 [degF][place]06-20-2024 09:47-0400Body dmdwka597.05 kgCenterville06-20-2024 09:47-0400Diastolic blood mvtttmpo38 mm[Hg] [place]06-20-2024 09:47-0400Heart rate61 /minCenterville06-20-2024 09:47-0913AyW4% (BldA) [Mass fraction]95 % [place]06-20-2024 09:47-0400Systolic blood mgvodbsr632 mm[Hg][place]04-01-2024 11:49-0400Body ixwpobyegui90.4 [degF]DO [facility]04-01-2024 11:49-0400 Body hczemd776.59 kgDO [facility] 08-20-2023 11:49-0400Diastolic blood djnjszaq28 mm[Hg]DO Nita Mary [place]04-01-2024 11:49-0400Respiratory rate20 /minDO [facility]04-01-2024 11:49-0494EmR2% (BldA) [Mass fraction]98 %DO [facility] 08-20-2023 11:49-0400Systolic blood woljietd452 mm[Hg]DO [facility]01-16-2024 09:00-0500Body dwkpna947.8 cmDO [facility]01-16-2024 09:00-0500Body weight 106.59 kgDO [facility]01-16-2024 09:00-0500Diastolic blood lgmtycbd56 mm[Hg]DO [facility]01-16-2024 09:00-0500Systolic blood cjsxacsm524 mm[Hg]DO [facility]10-17-2023 11:00-0400Body .8 cmCgreg Chen Other [employer] Other 10-17-2023 11:00-0400Body mass index (BMI) [Ratio] 32.28 kg/o0ExvdibKeila Chen Other [employer] Other 10-17-2023 11:00-0400Body sycxhssrtqe88.2 [degF]Keila Chen Other [employer] Other 10-17-2023 11:00-0400Body jocqtw786.06 kgKeila Chen Other [employer] Other 10-17-2023 11:00-0400Respiratory rate18 /minKeila Chen Other [employer] Other 10-17-2023 11:00-4377RtG7% (BldA) [Mass fraction]98 % Keila Chen Other [employer] Other 01-10-2023 16:15-0500Body .8 cmRoxanne Dawit Other [employer] Other 01-10-2023 16:15-0500Body mass index (BMI) [Ratio] 33.23 kg/h2Qidktuiblayne Pastor Other [employer] Other 01-10-2023 16:15-0500Body zbjshytbxsm85.7 [degF] Wendy Pastor Other [employer] Other 01-10-2023 16:15-0500Body vwobon558.05 kgRoxblayne Pastor Other [employer] Other 01-10-2023 16:15-0500Diastolic blood jvnkiquj97 mm[Hg] Wendy Pastor Other [employer] Other 150259-84-8061 16:15-0500Respiratory rate18 /minRoxblayne Pastor Other [employer] Other 01-10-2023 16:15-0674MkD8% (BldA) [Mass fraction]98 % Wendy Pastor Other [employer] Other 01-10-2023 16:15-0500Systolic blood yzubenbf502 mm[Hg] Wendy Pastor Other [employer] Other 11-29-2022 10:15-0500Body srehlg317.8 cmAndra Martines Other [employer] Other 11-29-2022 10:15-0500Body mass index (BMI) [Ratio] 32.57 kg/i1Alpvora Martines Other [employer] Other 11-29-2022 10:15-0500Body tnooydngdvv24 [degF]Lydia Conrad Other [place] [employer] Other 11-29-2022 10:15-0500Body .97 kgAndra Conrad Other [place] [employer] Other 11-29-2022 10:15-0500Diastolic blood pitrobtg10 mm[Hg] Lydia Conrad Other [place] [employer] Other 11-29-2022 10:15-6102HaJ0% (BldA) [Mass fraction]98 % Lydia Conrad Other [place] [employer] Other 11-29-2022 10:15-0500Systolic blood mm[Hg] Lydia Conrad Other [place] [employer] Other [id number] 10:20-0400Body ezbxfe396.8 cmAmbsyeda Matthew Other [employer] Other 07-07-2022 10:20-0400Body mass index (BMI) [Ratio] 32.28 kg/t3PgbfjChasidy Matthew Other [facility] HospitalCDI [employer] Other 07-07-2022 10:20-0400Body avoinhokwth79.4 [degF]Chasidy Matthew Other [employer] Other 07-07-2022 10:20-0400Body .06 kgChasidy Matthew Other [employer] Other 07-07-2022 10:20-0400Respiratory rate18 /minChasidy Matthew Other [employer] Other 07-07-2022 10:20-2703YgW1% (BldA) [Mass fraction]98 % Chasidy Matthew Other [employer] Other 09-28-2021 18:05-0400Body vckner872.8 cmCgreg Ingram Other [employer] Other 09-28-2021 18:05-0400Body mass index (BMI) [Ratio] 32.28 kg/t6CzcmpxKeila Ingram Other [employer] Other 09-28-2021 18:05-0400Body fovqtizwgbx84.6 [degF]Phumariano Nataly Other [employer] Other 09-28-2021 18:05-0400Body sgmmfa113.06 kgKeila Ingram Other [employer] Other 09-28-2021 18:05-0400Respiratory rate16 /minToysujatha Ingram Other [employer] Other 09-28-2021 18:05-4820EmV7% (BldA) [Mass fraction]95 % Keila Ingram Other [employer] Other Encounters Encounter DateEncounter TypeCare ProviderFacilityStart: 87-48-0536andloggsoq Montrell HOLTFacility:EU evueStart: 12-08-2024 End: 50-02-3038cvcozcncqfDannrda R WATERSFacility:EU BellevueStart: 12-08-2024 End: 42-67-3152Kxxaohj encounter procedureMontrell HOLT [facility] Siai start: 06-16-2024 End: 02-70-8440qcshnxlfkhIirssji Delmi WATERSFacility:FTMCStart: 06-16-2024 End: 22-00-8544Zjt Drop offPatrick Delmi HOLT [facility] Start: 06-16-2024 End: 80-97-7512zjjhfnsvlsHootzqc R SARAFacility:EU BellevueStart: 06-16-2024 End: 31-17-5502Nolkhub encounter procedurePatrick R HOLT [facility] start: 06-05-2024 End: 74-27-4506vppfqsfhtqUjjseep R WATERSFacility:CD:[id number]: 05-29-2024 ambulatoryPatrick Delmi HOLTFacility:CD:[id number]: 05-23-2024 End: 22-93-6719iwpryvoyroNJ-C NABILA JAVIERFacility:EU [place]kyStart: 05-23-2024 End: 05-37-6755Jnhqjlt encounter procedureJENIKOLAYIFER Lennox CONCEPCION [facility] Start: 05-22-2024 End: 97-08-8704uxvinkvpgfBfgur Lizz RNNURSE ON CALLStart: 05-22-2024 End: 35-10-5512Lijhoiv encounter procedureLiana Lizz RNNURSE ON CALLComment on above:Clinical UpdateStart: 05-19-2024 End: 74-77-0342Tlmnutykr department patient visitRichard Morriscility:[facility]art: 05-19-2024 End: 19-21-8653nqpbsarrgpVmveplf WatersFacility:[facility]tart: 71-77-1346lakcrzkziiLznlujp WATERSFacility:EU [place]kyStart: 04-27-2024 End: 87-75-0182Ibmfkqqfu department patient visitTimedin Harris Facility:[facility]: 04-26-2024 End: 22-97-4541Lqxvwpkbn department patient visitAlexakelby Wolf Facility:[facility]: 04-25-2024 End: 57-96-9937fnuvfescinKysnyup R WATERSFacility:CD:[id number]: 04-25-2024 End: 66-47-3380xocntmvqhtKgefimw R WATERSFacility:EU BellevueStart: 04-25-2024 End: 35-05-0836Iopxoab encounter procedureMontrell HOLT [facility] start: 04-23-2024 End: 05-91-2042Anocgdnkt department patient visitEric RobinsonFacility:[facility]tart: 11-08-2023 End: 87-18-9449woeppllhflDtfziqzmgCommunity [facility] Work Phone: Start: 11-08-2023 End: 92-43-9994Gexfxee [facility] [place] Work Phone: Start: 08-20-2023 End: 77-96-3705fpjqljlzbcRG [facility] Work Phone: Start: 08-20-2023 End: 72-92-7268Rsobtha encounter procedureDO [facility] [place] Work Phone: Start: 06-07-2023 End: 27-87-2909bfvjavuuelZekujif Rogers Other [facility] [employer] Other Start: 06-67-2912Cbrjvvnbx encounterWendy Whitaker [facility]Start: 06-06-2023 End: 42-78-4739xqiijvqgnjTC [facility] Work Phone: Start: 06-06-2023 End: 98-81-7767Ynmbseg encounter procedureDO [facility] Work Phone: Start: 06-05-2023 End: 00-80-4286Dfmxeku encounter procedureDO [facility] Work Phone: Start: 03-06-2023 End: 11-61-6338dfzszxzhsqNgybol Lewis Other [employer] Other Start: 73-81-8538Ouilbh outpatient visit 15 minutes Keila Rodarte [facility]: 06-11-2022 End: 13-65-2487epfzpcpdpdCfhtfmo Rogers Other [employer] Other Start: 79-31-0601Jiastuljs encounterRoxblayne Gómez Primary CareStart: 05-30-2022 End: 47-88-2936ruwqavfwbfJeyljpi Rogers Other [employer] Other Start: 53-53-0833Dropkuswr for general adult medical examination without abnormal findingsRoxannlennox Gómez Primary CareStart: 73-59-4182KOFE visit new patientRoxannlennox Gómez Primary CareStart: 06-52-1814Qepqhlk encounter procedureRoxblayne Gómez Primary CareStart: 05-03-2022 End: 23-40-1998aspimhtokaZkofewu Rogers Other [employer] Other Start: 78-64-0241Hzhqayyfy encounterRoxannlennox Gómez Primary CareStart: 04-18-2022 End: 95-43-3306mycjhtgtsqXahyx Kurtz Other [facility] [employer] Other Start: 35-42-4882Ofelpd outpatient visit 15 minutes Lydia Gómez Primary CareStart: 04-02-2022 End: 56-03-0558ibhhkkpuemCqdau Keller Other [facility] [employer] Other Start: 75-54-7788Ytiaktwte encounterAmber Chuckie [facility] RoadStart: 11-24-2021 End: 48-56-3757eiokmnhucwGaeey Keller Other [facility] [employer] Other Start: 30-27-7861Njcbnz outpatient visit 25 minutes Chasidy VipulROSE MARIE [facility]: 53-68-2094Ozcpoxxfd encounter Wendy Gómez Primary CareStart: 37-49-5267Hgmtzx outpatient visit 15 minutesKeila RothBibiana [facility] Procedures DateProcedureProcedure DetailPerforming ClinicianStart: 09-23-2350Jvftuylaaamiag shockwave lithotripsy of calculus of kidneyPatrick HOLT arthritis (disorder)Montrelllinda HOLT Plan of Treatment DateCare ActivityDetailAuthorStart: 72-85-5027XYQ Vaccine (1 - 1-dose 75+ series)RSV Vaccine (1 - 1-dose 75+ series)[facility]: 05-26-2024 End: 92-71-3945Glwkeva encounter rpijdpmyy72/06/2025 10:30 AM EST Office Visit Urology [address] [place] [address] Сергей Rico PA-C [address] [place] [address] KIDNEY STONESUrologyComment on above:KIDNEY STONESStart: 70-68-7371Twfaega Directive DiscussionAdvance Directive DiscussionCleselect medical specialty hospital - [facility]on ClinicStart: 95-87-1184Hzxmh-19 Vaccine ( season)Covid-19 Vaccine ( season)[facility]: 29-80-4902Hxdomxrob vaccinationInfluenza Vaccine (#1)[facility]: 40-31-4130Hzvksslbmccc Vaccine: 50+ (1 of 1 - PCV)Pneumococcal Vaccine: 50+ (1 of 1 - PCV)[facility]: 2001 Shingrix Vaccine (1 of 2)Shingrix Vaccine (1 of 2)[facility]: 98-61-5187Ztafwtam ScreeningDiabetes ScreeningMarietta Osteopathic Clinictart: 1996 Screening for malignant neoplasm of colonMarietta Osteopathic Clinictart: 88-84-4925Kgcxq panelLipid ScreeningMarietta Osteopathic Clinictart: 65-24-0137Pfzkn microalbumin profile DTaP,Tdap,Td Vaccine (1 - Tdap)[facility]: 39-17-5518Rlntgjy ScreeningAnxiety ScreeningMarietta Osteopathic Clinictart: 16-01-0720Pbxbkfevgx Screening Depression ScreeningMarietta Osteopathic Clinictart: 10-07-2945Ttrlforah C screening Hepatitis C ScreeningGalion HospitalGlucose measurement estimated from glycated hemoglobinHealdsburg District Hospital Immunizations Immunization DateImmunizationNotesCare LxrfpnshQkfeijrf35-09-1866ztctjibay virus vaccine, unspecified formulationDO [facility]01-16-2024Prevnar 20Roxanne Dawit Other [place]01-16-2024influenza, high dose seasonal, preservative-freeRoxanne Pastor Other [employer] Other 01-550505-97-2684xbmczjwxr, high dose seasonal, preservative-freeRoxanne Pastor Other [employer] Other 01-356812-60-8365dutvglpgw virus vaccine, unspecified formulationDO [facility]04-04-2021COVID-19 Vaccine Pfizer - Documentation Purposes OnlyWendy Pastor Other [place]Comment on above: Result Comment: 2024-04-25: [id number]-58 Vaccine Pfizer - Documentation Purposes OnlyWendy Pastor Other [place]Comment on above: Result Comment: 2024-04-25: RZE0048-87-6320Qwyexsv per 15 mgCalsujatha Ingram Other [employer] Other [id number] per 15 mgKeila Ingram Other [employer] Other 08-781698-81-9095Woevuri per 15 mgKeila Ingram Other [employer] Other 04-477973-32-3604Xsiiibt per 15 mgKeila Ingram Other [employer] Other 10-546127-32-8991ckyutckur, injectable, quadrivalent, preservative freeKeila Ingram Other [employer] Other 10-103473-87-2237mfvldxwqu, injectable, quadrivalent, contains preservativeDO [facility] 32-33-8071foblgiasauru polysaccharide vaccine, 23 valentKeila Ingram Other [place]02-27-2014tetanus toxoid, reduced diphtheria toxoid, and acellular pertussis vaccine, adsorbed Keila Nataly Other [employer] Other [id number] and diphtheria toxoids, adsorbed, preservative free, for adult use (2 Lf of tetanus toxoid and 2 Lf of diphtheria toxoid)Montrell HOLT [facility]02-27-2014tetanus and diphtheria toxoids, adsorbed, preservative free, for adult use (5 Lf of tetanus toxoid and 2 Lf of diphtheria toxoid)DO [facility] Payers DatePayer CategoryPayerPolicy [id number] [id number]-pdo [id number] [id number] 2.16.840.1.745912.3.579.2.727 [id number] 2.16.840.1.892084.3.57[id number] 2.16.840.1.510494.3.57[id number] 2.16.840.1.321563.3.57[id number] 2.16.840.1.213964.3.57[id number] 2.16.840.1.641517.3.57[id number] 2.16.840.1.135424.3.57[id number] 2.16.840.1.819629.3.57[id number] 2.16.840.1.59[id number] 2.840.1.847345.19Medicare Medicare [id number] [id number] 2.16.840.1.921368.19UnknownAnthem /[id number] 2.16.840.1.7[id number] 2.16.840.1.583424.3.579.2.531 [id number] 2.16.840.1.3[id number] 2.16.840.1.2[id number] 2.840.1.351778.3.579.2.531 Social History DateTypeDetailFacilityUnknown if ever smokedNorth Savedaily Other [facility] Start: 09-26-2020 End: 04-52-7229Cjwbgju smoking status NHISEx-smoker (finding)[facility]: 97-60-5038Sqg [facility] 04-25-2024 End: 54-56-9695Guygzym smoking statusNever smoked tobacco (finding)[facility] smoking statusNever [facility] smoking status NHISTobacco smoking consumption unknownM[facility]etta [facility] Clinictart: 80-60-8346Zpx [facility] at [facility] centerNot on fileM[facility]etta Osteopathic Clinicexual OrientationExec[facility] of [facility] start: 58-17-5053GidDsom (finding)[facility] Functional Status ZzmjSollbacdowOjmpdwMijgbreb29-25-9695Wiprcszpam StatusN/AExec[facility] of [facility] Isai Clinical Notes 01-19-2018 to 12-08-2024 Note Date & EjaoPbomStxtwmtw29-02-6374 Hospital Discharge instructions Patient Education 12/08/2024 12:09:19 24-Hour Urine Collection 24-Hour Urine Collection Why am I having this test? A 24-hour urine specimen is a lab test that requires you to collect all of your urine for an entireday. This is sometimes called a timed urine test. It can provide more information than a single urine sample. There are many reasons to have this test. Your health care provider may order the test to check foror monitor the following conditions: High blood pressure. Kidney disease. Kidney stones. Urinary tract infections. . Diabetes. How do I prepare for this test? You may be asked to follow a special diet during or before the collection period. Follow any instructions from your health care provider. If no special instructions are given, you may eat and drink normally. Take ioeo-ncb-kqgenvp and prescription medicines only as told by your health care provider. Let your health care provider know about any medicines that you are taking, including kpyv-pls-dknqsxb medicines, vitamins, herbs, and supplements. Choose a collection day when you can be at home or when you have a place to store the urine. All urine must be collected during the testing period. How do I do a 24-hour urine collection? When you get up in the morning, urinate in the toilet and flush. Write down the time. This will be your start time on the day of collection and your end time on the next morning. From the start time on, all of your urine should be kept in the collection jug that you received from the lab. If the jug that is given to you already has liquid in it, that is okay. Do not throw out the liquidor rinse out the jug. Urinate into a specimen container, such as a urinal or elkins that sits over the toilet. Pour the urine from the container into the collection jug. Be careful not to spill any of the urine. Use the equipment provided by the lab. Do not let any toilet paper or stool (feces) get into the jug. This will contaminate the sample. Stop collecting your urine 24 hours after you started. Collect the last specimen as close as possible to the end of the 24-hour period. Keep the jug cool in an ice chest or keep it in the refrigerator during collection. When the 24-hour collection is complete, take the jug to the lab as soon as possible. Keep the jug cool in an ice chest while you are bringing it to the lab. What do the results mean? Talk with your health care provider about what your results mean. Questions to ask your health care provider Ask your health care provider, or the department that is doing the test: When will my results be ready? How will I get my results? What are my treatment options? What other tests do I need? What are my next steps? Summary A 24-hour urine specimen is a lab test that requires you to collect all of your urine for an entireday. When you get up in the morning, urinate in the toilet and flush. Write down the time. For the next 24 hours, collect all of your urine in the collection jug that you received from the lab. Keep the jug cool while collecting the urine and while bringing it back to the lab. Take the jug of urine back to the lab as soon as possible after the collection period has ended. This information is not intended to replace advice given to you by your health care provider. Make sure you discuss any questions you have with your health care provider. Document Revised: 11/11/2021 Document Reviewed: 11/11/2021 [employer] Patient Education 2023 [employer]. 12/08/2024 11:58:36 Dietary Guidelines to Help Prevent Kidney Stones Dietary Guidelines to Help Prevent Kidney Stones Kidney stones are deposits of minerals and salts that form inside your kidneys. Your risk of developing kidney stones may be greater depending on your diet, your lifestyle, the medicines you take, and whether you have certain medical conditions. Most people can lower their risks of developing kidney stones by following these dietary guidelines. Your dietitian may give you more specific instructions depending on your overall health and the type of kidney stones you tend to develop. What are tips for following this plan? Reading food labels Choose foods with no salt added or low-salt labels. Limit your salt (sodium) intake to less than 1,500 mg a day. Choose foods with calcium for each meal and snack. Try to eat about 300 mg of calcium at each meal.Foods that contain 200 500 mg of calcium a serving include: ?8 oz (237 mL) of milk, evxmhmn-pprrpmbvyxxm-ceysf milk, and calcium- fortifiedfruit juice. Calcium-fortified means that calcium has been added to these drinks. ?8 oz (237 mL) of kefir, yogurt, and soy yogurt. ?4 oz (114 g) of tofu. ?1 oz (28 g) of cheese. ?1 cup (150 g) of dried figs. ?1 cup (91 g) of cooked broccoli. ?One 3 oz (85 g) can of sardines or mackerel. Most people need 1,000 1,500 mg of calcium a day. Talk to your dietitian about how much calcium is recommended for you. Shopping Buy plenty of fresh fruits and vegetables. Most people do not need to avoid fruits and vegetables, even if these foods contain nutrients that may contribute to kidney stones. When shopping for convenience foods, choose: ?Whole pieces of fruit. ?Pre-made salads with dressing on the side. ?Low-fat fruit and yogurt smoothies. Avoid buying frozen meals or prepared deli foods. These can be high in sodium. Look for foods with live cultures, such as yogurt and kefir. Choose high-fiber grains, such as whole-wheat breads, oat bran, and wheat cereals. Cooking Do not add salt to food when cooking. Place a salt shaker on the table and allow each person to addtheir own salt to taste. Use vegetable protein, such as beans, textured vegetable protein (TVP), or tofu, instead of meat inpasta, casseroles, and soups. Meal planning Eat less salt, if told by your dietitian. To do this: ?Avoid eating processed or pre-made food. ?Avoid eating fast food. Eat less animal protein, including cheese, meat, poultry, or fish, if told by your dietitian. To dothis: ?Limit the number of times you have meat, poultry, fish, or cheese each week. Eat a diet free of meat at least 2 days a week. ?Eat only one serving each day of meat, poultry, fish, or seafood. ?When you prepare animal proteins, cut pieces into small portion sizes. For most meat and fish, oneserving is about the size of the palm of your hand. Eat at least five servings of fresh fruits and vegetables each day. To do this: ?Keep fruits and vegetables on hand for snacks. ?Eat one piece of fruit or a handful of berries with breakfast. ?Have a salad and fruit at lunch. ?Have two kinds of vegetables at dinner. You may be told to limit foods that are high in a substance called oxalate. These include: ?Spinach (cooked), rhubarb, beets, sweet potatoes, and Niue[place] chard. ?Peanuts. ?Potato chips, martiniquais fries, and baked potatoes with skin on. ?Nuts and nut products. ?Chocolate. If you regularly take a diuretic medicine, make sure to eat at least 1 or 2 servings of fruits or vegetables that are high in potassium each day. These include: ?Avocado. ?Banana. ?[place], prune, carrot, or tomato juice. ?Baked potato. ?Cabbage. ?Beans and split peas. Lifestyle Drink enough fluid to keep your urine pale yellow. This is the most important thing you can do. Spread your fluid intake throughout the day. If you drink alcohol: ?Limit how much you have to: ?0 1 drink a day for women who are not . ?0 2 drinks a day for men. ?Know how much alcohol is in your drink. In the [place] one drink equals one 12 oz bottle of beer (355 mL), one 5 oz glass of wine (148 mL), or one 1 oz glass of hard liquor (44 mL). Lose weight if told by your health care provider. Work with your dietitian to find an eating plan and weight loss strategies that work best for you. General information Talk to your health care provider and dietitian about taking daily supplements. Depending on your health and the cause of your kidney stones, you may be told: ?Do not take high-dose supplements of vitamin C (1,000 mg a day or more). ?To take a calcium supplement. ?To take a daily probiotic supplement. ?To take other supplements such as magnesium, fish oil, or vitamin B6. Take rkyk-djq-koajxdh and prescription medicines only as told by your health care provider. These include supplements. What foods should I limit? Limit your intake of the following foods, or eat them as told by your dietitian. Vegetables Spinach. Rhubarb. Beets. Canned vegetables. Pickles. Olives. Baked potatoes with skin. Grains Wheat bran. Baked goods. Salted crackers. Cereals high in sugar. Meats and other proteins Nuts. Nut butters. Large portions of meat, poultry, or fish. Salted, precooked, or cured meats, such as sausages, meat loaves, and hot dogs. Dairy Cheeses. Beverages Regular soft drinks. Regular vegetable juice. Seasonings and condiments Seasoning blends with salt. Salad dressings. Soy sauce. Ketchup. Barbecue sauce. Other foods Canned soups. Canned pasta sauce. Casseroles. Pizza. Lasagna. Frozen meals. Potato chips. Welsh fries. The items listed above may not be a complete list of foods and beverages you should limit. Contact a dietitian for more information. What foods should I avoid? Talk to your dietitian about specific foods you should avoid based on the type of kidney stones youhave and your overall health. Fruits Grapefruit. The item listed above may not be a complete list of foods and beverages you should avoid. Contact adietitian for more information. Summary Kidney stones are deposits of minerals and salts that form inside your kidneys. You can lower your risk of kidney stones by making changes to your diet. The most important thing you can do is drink enough fluid. Drink enough fluid to keep your urine pale yellow. Talk to your dietitian about how much calcium you should have each day, and eat less salt and animal protein as told by your dietitian. This information is not intended to replace advice given to you by your health care provider. Make sure you discuss any questions you have with your health care provider. Document Revised: 08/17/2022 Document Reviewed: 08/17/2022 Elsevier Patient Education 2023 [employer]. Follow Up Care 06/09/2024 08:09:40 With:SARA MUNSON, Montrell Awad, URL Address: [facility] [address] [place] [address]- When: Unknown [facility] 07-21-2025 NotePatient Education Nephrology Dietary Guidelines to Help Prevent Kidney Stones Kidney stones are deposits of minerals and salts that form inside your kidneys. Your risk of developing kidney stones may be greater depending on your diet, your lifestyle, the medicines you take, and whether you have certain medical conditions. Most people can lower their risks of developing kidney stones by following these dietary guidelines. Your dietitian may give you more specific instructions depending on your overall health and the type of kidney stones you tend to develop. What are tips for following this plan? Reading food labels ??? Choose foods with no salt added or low-salt labels. Limit your salt (sodium) intake to lessthan 1,500 mg a day. ??? Choose foods with calcium for each meal and snack. Try to eat about 300 mg of calcium at each meal. Foods that contain 200?500 mg of calcium a serving include: ? 8 oz (237 mL) of milk, ibfhffr-lcohecbmfyqo-ardwo milk, and calcium- fortifiedfruit juice. Calcium-fortified means that calcium has been added to these drinks. ? 8 oz (237 mL) of kefir, yogurt, and soy yogurt. ? 4 oz (114 g) of tofu. ? 1 oz (28 g) of cheese. ? 1 cup (150 g) of dried figs. ? 1 cup (91 g) of cooked broccoli. ? One 3 oz (85 g) can of sardines or mackerel. Most people need 1,000?1,500 mg of calcium a day. Talk to your dietitian about how much calcium is recommended for you. Shopping ??? Buy plenty of fresh fruits and vegetables. Most people do not need to avoid fruits and vegetables, even if these foods contain nutrients that may contribute to kidney stones. ??? When shopping for convenience foods, choose: ? Whole pieces of fruit. ? Pre-made salads with dressing on the side. ? Low-fat fruit and yogurt smoothies. ??? Avoid buying frozen meals or prepared deli foods. These can be high in sodium. ??? Look for foods with live cultures, such as yogurt and kefir. ??? Choose high-fiber grains, such as whole-wheat breads, oat bran, and wheat cereals. Cooking ??? Do not add salt to food when cooking. Place a salt shaker on the table and allow each person toadd their own salt to taste. ??? Use vegetable protein, such as beans, textured vegetable protein (TVP), or tofu, instead of meat in pasta, casseroles, and soups. Meal planning ??? Eat less salt, if told by your dietitian. To do this: ? Avoid eating processed or pre-made food. ? Avoid eating fast food. ??? Eat less animal protein, including cheese, meat, poultry, or fish, if told by your dietitian. To do this: ? Limit the number of times you have meat, poultry, fish, or cheese each week. Eat a diet free of meat at least 2 days a week. ? Eat only one serving each day of meat, poultry, fish, or seafood. ? When you prepare animal proteins, cut pieces into small portion sizes. For most meat and fish, one serving is about the size of the palm of your hand. ??? Eat at least five servings of fresh fruits and vegetables each day. To do this: ? Keep fruits and vegetables on hand for snacks. ? Eat one piece of fruit or a handful of berries with breakfast. ? Have a salad and fruit at lunch. ? Have two kinds of vegetables at dinner. ??? You may be told to limit foods that are high in a substance called oxalate. These include: ? Spinach (cooked), rhubarb, beets, sweet potatoes, and [place] chard. ? Peanuts. ? Potato chips, martiniquais fries, and baked potatoes with skin on. ? Nuts and nut products. ? Chocolate. ??? If you regularly take a diuretic medicine, make sure to eat at least 1 or 2 servings of fruits or vegetables that are high in potassium each day. These include: ? Avocado. ? Banana. ? [place], prune, carrot, or tomato juice. ? Baked potato. ? Cabbage. ? Beans and split peas. Lifestyle ??? Drink enough fluid to keep your urine pale yellow. This is the most important thing you can do.Spread your fluid intake throughout the day. ??? If you drink alcohol: ? Limit how much you have to: ? 0?1 drink a day for women who are not . ? 0?2 drinks a day for men. ? Know how much alcohol is in your drink. In the [place] one drink equals one 12 oz bottle of beer (355 mL), one 5 oz glass of wine (148 mL), or one 1? oz glass of hard liquor (44 mL). ??? Lose weight if told by your health care provider. Work with your dietitian to find an eating plan and weight loss strategies that work best for you. General information ??? Talk to your health care provider and dietitian about taking daily supplements. Depending on your health and the cause of your kidney stones, you may be told: ? Do not take high-dose supplements of vitamin C (1,000 mg a day or more). ? To take a calcium supplement. ? To take a daily probiotic supplement. ? To take other supplements such as magnesium, fish oil, or vitamin B6. ??? Take ycuf-ksa-ydrttru and prescription medicines only as told by your health (more content not included)...[facility]01-[facility]2025 Telephone encounter Note* Telephone Encounter - Melvi Zamudio RN - 05/22/2024 11:06 AM EST Patient calling with request for appointment. Patient denies any new or worsening symptoms of whicha provider is not aware: Yes. Patient states he was diagnosed with a 7 mm kidney stone. He had surgery and since the procedure hehas been to ER multiple times. States he continues to have pain, and would like to see a doctor here at [facility]. Conferenced to the Appointment Center for scheduling with urology. GO TO THE EMERGENCY ROOM OR CALL 911 IF: * You develop any new symptoms * Your condition worsens * You are concerned or anxious about your condition for any other reason. If you have any questions, you can call Nurse deputy probation officer back. [facility]01-02-2025 Miscellaneous Notes* Telephone Encounter - Melvi Zamudio RN - 05/22/2024 11:06 AM EST Patient calling with request for appointment. Patient denies any new or worsening symptoms of whicha provider is not aware: Yes. Patient states he was diagnosed with a 7 mm kidney stone. He had surgery and since the procedure hehas been to ER multiple times. States he continues to have pain, and would like to see a doctor here at [facility]. Conferenced to the Appointment Center for scheduling with urology. GO TO THE EMERGENCY ROOM OR CALL 911 IF: * You develop any new symptoms * Your condition worsens * You are concerned or anxious about your condition for any other reason. If you have any questions, you can call Nurse deputy probation officer back. [facility] Discharge instructions Patient Education 04/25/2024 10:00:46 ESWL for [...] including vitamins, herbs, eye drops, creams, and jlgf-aqj-itcrydf medicines. Any problems you or family members [...] These include any diabetes medicines or blood thinnersyou take. Taking medicines such as aspirin and ibuprofen. These medicines can thin your blood. Do not take them unless your health care provider tells you to. Taking hsyy-nyj-bdnxoun medicines, vitamins, herbs, and supplements. Tests You [...] blood oxygen level will be monitored until youleave the hospital or clinic. You may have an X-ray after the procedure to see how many of the kidney stones were broken up. Thiswill also show how much of the stone [...] provider. Document Revised: 09/07/2022 Document Reviewed: 09/07/2022 [employer] Patient Education 2023 [employer]. Follow Up Care 04/23/2024 11:37:15 With:SARA MUNSON, Montrell Awad, URL Address: [address] [place], [place] [id number]- When: Unknown [facility] 12-06-2024 NotePatient Education Nephrology ESWL for Kidney Stones Extracorporeal [...] including vitamins, herbs, eye drops, creams, and vyxe-lir-aporglu medicines. ??? Any problems you or family [...] care provider tells you to. ??? Taking ctbi-snh-zmdgokd medicines, vitamins, herbs, and supplements. Tests You [...] the ureter. The stent will be removed juliane later time by your health care provider. The procedure may vary among health care providers and hospitals. What happens after the procedure? Your blood pressure, heart rate, breathing rate, and blood oxygen level will be monitored untilyou leave the hospital or clinic. ??? You [...] given to you b (more content not included)...[facility]10-17-[facility] Evaluation note* Encounter Date Diagnosis Assessment Notes Treatment Notes Treatment Clinical Notes Feb, Cough (ICD-10 - R05.9) covid neg, see above. Feb,cute bronchitis, unspecified organism (ICD-10 - J20.9)abx and steroid as directed with food. Pt is to use inhaler as prescribed prn for cough and wheeze.Supportive care as directed. Push fluids and rest. [...] or chest pain. Pt is to f/u immediatelyin ER if these sx present. Pt is to call the office with any questions or concerns regarding dx andtx. Pt understood and agreed to tx plan. [facility] Other 01-10-2023 Evaluation note* Encounter Date Diagnosis [...] interventions to reduce health risks and promote self- management and wellness, including weight loss, physical activity, smoking cessation, fall prevention, and nutrition. A written plan for screenings discussed, including colonoscopy, mammography, flu shots, routine lab studies, eye exams, glaucoma screening, skin checks, risk factors formedical problems discussed, including BP control, obesity, and need for consistent exercise. Advanced care planning reviewed. Counseling was provided here today - specifically in regard to any positively answered questions as noted above. May,Laboratory exam ordered as part of routine general medical examination (ICD-10 - Z00.00) May,Screening for malignant neoplasm of colon (ICD-10 - Z12.11)Discussed colorectal cancer screening options with patient. All questions answered and recommendations reviewed. Will proceed with cologard screening. He/she is aware that if positive, they will needa colonoscopy. [facility] Other 11-29-2022 Evaluation note* Encounter Date Diagnosis Assessment Notes Treatment Notes Treatment Clinical Notes Mar, Sore throat (ICD-10 - J02.9) Strep test was negative. He as educated on supportive care such as increasing fluids, good hand washing and OTC medication for symptoms relief. He will follow up if symptoms worsen or do not resolve. Mar,ongestion of nasal sinus (ICD-10 - R09.81) [facility] Other 07-07-2022 Evaluation note* Encounter Date Diagnosis Assessment Notes Treatment Notes Treatment Clinical Notes Nov, Cough (ICD-10 - R05.9) Nov,OVID-19 (ICD-10 - U07.1) Rapid COVID test performed [...] treatment plan. Patient left in stable condition [facility] Other 09-28-2021 Evaluation note* Encounter Date Diagnosis Assessment Notes Treatment Notes Treatment Clinical Notes Jan, Contact with and (malloy spected) exposure to other viral communicable diseases (ICD-10 - Z20.828) rapid covid test neg, see above. Jan,Viral URI (ICD-10 - J06.9) Informed pt that covid test was negative. Will treat as viral at this time based on PE findings. Therefore, no abx is indicated for tx. Supportive care as directed. Rest and push fluids. Pt denied work note. Pt to take otc antipyretic prn for fever and aches. If coughing patient may take otc cough medicine. [place] diet and avoid spicy/greasy/dairy food. Pt to f/u with pcp as needed for persistent or recurrent sx. Pt understood and agreed to treatment plan. Jan,Other Additional time spent conducting pre-visit phone call, screening for symptoms, instructions on social distancing, application and removal of PPE, and cleaning of examination room, equipment and supplies was preformed. Patient education given for testing methodology and results. Patient care instructions given in writting by [facility] document. [facility] Other 09-01-2018 History general Narrative - Reported* Type Description Date Medical History KLUTI KAAH (wears hearing aides) Medical HistoryH/o renal stonesMedical HistoryShingles 01/2018Surgical History lithotripsy10/2013Surgical Historyleft uretral stent10/2013Surgical HistoryT & A Surgical FaplxnlEqjwitktu0187Zpsmecpiawcsuap HistoryPROSTATE INFECTION Hospitalization Historykidney stones [facility] Other 09-01-2018 History general Narrative - Reported* Type Description Date Medical History KLUTI KAAH (wears hearing aides) Medical HistoryH/o renal stonesMedical HistoryShingles 01/2018Medical History glaucomaSurgical Historylithotripsy10/2013Surgical Historyleft uretral stent 10/2013Surgical HistoryT & ASurgical KegeujuHedzctjgy2674Pjcekznzanqkppk History PROSTATE INFECTIONHospitalization Historykidney stones [facility] Other 09-01-2018 History general Narrative - Reported* Type Description Date Medical History KLUTI KAAH (wears hearing aides) Medical HistoryH/o renal stonesMedical HistoryShingles 01/2018Medical History glaucomaSurgical Historylithotripsy10/2013Surgical Historyleft uretral stent 10/2013Surgical HistoryT & ASurgical JrzddcrTrzcnaaco1518Ruyictop Historycataract 2022Hospitalization HistoryPROSTATE INFECTIONHospitalization Historykidney stones [facility] Other Evaluation + Plan note No data available for this section [facility] evaluation + Plan note Future Appointments Appointment Date:12/08/2024 10:30:00 AM Scheduled Provider:Montrell HOLT MD Location:[facility] Appointment Type:URO Office Visit Diagnostic Tests Pending * Calculi Analysis Urinary 06/16/24 [facility] Evaluation + Plan note Future Appointments Appointment Date:12/08/2024 10:30:00 AM Scheduled Provider:Montrell HOLT MD Location:[facility] Appointment Type:URO Office Visit [facility] evaluation + Plan note Future Appointments Appointment Date:07/06/2025 09:45:00 AM Scheduled Provider:Montrell HOLT MD Location:[facility] Appointment Type:URO Office Visit Future Scheduled Tests Laboratory* PSA Total 12/08/24 [facility] evaljzmywh noteNo InformationNort Savedaily Other Evaluation noteNo assessment information available [facility] Work Phone: Evaluation note* Diagnosis Onset Date Resolution Status Abscess noneactiveDermatitisnoneactive [facility] Work Phone: Hospital Discharge instructions No data available for this section [facility] Progress note No data available for this section [facility] Advance Directives No Advanced Directives Records Found Advance Directive Response Recorded Date/ Time Advance Directives No August 06 9:36am Advance Directive Response Recorded Date/ Time Advance Directives No August 06 10:36am Chief Complaint and Reason for Visit Chief Complaint Sawv Z00.00 E78.00 E55.9 bump on skin Chief Complaint bump on skin cough, congestionReason for VisitAbscess Dermatitis Family History No Family History Records Found Relationship Condition Age at Onset Recorded Date/T manan father Malignant melanoma Unknown DeceasedUnknownMalignant neoplasmUnknownNot SpecifiedDeceasedUnknown Summary Purpose Additional Source Comments REASON FOR VISIT (unrecogniz ed section and content) ReasonCommentsClinical Update Care Teams (unrecognized sec tion and content) Team Status: Active Member Role Status Dates Nita Hernandez DO Primary Care Provider Active Team Status: Inactive Member Role Status Dates Nita Hernandez DO Primary Care Provider Active Start: June 06, 2023 End: June 06xu Courtney DO DawitAttending ProviderActiveStart: June 06, 2023 End: June 06, 2023 Team Status: Inactive Member Role Status Dates Wendy Valdez Pastor DO Attending Provider Active Start: June 05, 2023 End: June 05, 2023 Team Status: Inactive Member Role Status Dates Nita Hernandez DO Primary Care Provider Active Start: August 20, 2023 End: August 19Mario Alberto Puga ProviderActiveStart: August 20, 2023 End: August 20, 2023 Team Status: Inactive Member Role Status Dates Nita Hernandez DO Primary Care Provider Active Start: November 08, 2023 End: November 07Mario Alberto Landrum ProviderActiveStart: November 08, 2023 End: November 08, 2023 [...] or prosecute any alcohol or drug abuse patient.[facility] (unrecognized sect ion and content) No Status Records FoundNo Status Records FoundNo Status Records Found INFORMATION SOURCE (unrecogn ized section and content) DATE CREATED AUTHOR 06/06/2024 [facility] DATE CREATED AUTHOR AUTHOR'S ORGANIZ ATION 12/19/2024 [facility] DATE CREATED AUTHOR AUTHOR'S ORGANIZ ATION 01/01/2025 [facility] FOR RECORDS PERTAINING TO PATIENTS WHO ARE [...] BE BASED ON THE PRIMARY CLINICAL RECORDS. [facility] [employer] [facility]. provides no warranty or guarantee of the accuracy or completeness of information in this document.
--- NOTE | 2025-03-20 12:38 | XR_ITS ---
[address] [address] Patient Name: RAQUEL RANDOLPH MRN: [id number] date: 1950 Sex: M Assigned Patient Location: LAB Current Patient Location: LAB Accession/Order Number: [id number] Exam Date: 03/20/2025 12:43 Report Date: 03/20/2025 15:23 At the request of: STARR RUIZ MD Procedure: XR abdomen 1V KUB: CLINICAL INFORMATION: Kidney stone. COMPARISON: KUB 12/06/2024 FINDINGS: No urinary tract calculus. No bowel obstruction or free air. XR/XR abdomen 1V IMPRESSION: NO URINARY TRACT CALCULUS. Impression dictated by: Manfred Ceballos Jr., D.OJosette 03/20/2025 3:23 PM Dictation Location: [place] [address] Electronically authenticated by: [id number] Y Date: 03/20/2025 15:23
== END 2025-03-20 12:18 | disposition home or self-care (01) ==
PROVIDERS: PCP Student in an Organized Health Care Education/Training Program; Visit Provider Urology
DX: Z12.5 Encounter for screening for malignant neoplasm of prostate (principal); N20.0 Calculus of kidney
CPT/HCPCS: 36415; 74018; G0103